=== PATIENT | male | born 1950 | race Caucasian/White ===

== ENCOUNTER 2024-02-07 14:30 | Outpatient (RCR) | payer MEDICARE, SELFPAY | END 2024-04-01 09:41 | disposition home or self-care (01) | LOC: ANHDMC 14:30 | PROVIDERS: Visit Provider Internal Medicine | DX: E11.65 Type 2 diabetes mellitus with hyperglycemia (principal); Z71.89 Other specified counseling | CPT/HCPCS: G0108; G0109 ==

== ENCOUNTER 2024-07-24 14:04 | Outpatient (RCR) | payer MEDICARE, SELFPAY | END 2024-10-07 10:23 | disposition home or self-care (01) | LOC: ANHDMC 14:04 | PROVIDERS: Visit Provider Internal Medicine | DX: E11.65 Type 2 diabetes mellitus with hyperglycemia (principal); Z71.89 Other specified counseling | CPT/HCPCS: G0109 ==

== ENCOUNTER 2024-08-02 06:41 | Inpatient (IN) | payer MEDICARE, SELFPAY ==
[2024-08-02] VITALS (35 sets, daily range): BP systolic 125–164; BP diastolic 62–89; PULSE 103–131; RESP 13–28; TEMP 36.1–36.9; O2SAT 89–100; BMI 38.9
--- NOTE | ~2024-08-02 | XR_ITS ---
EXAMINATION: XR scapula LT DATE: 08/04/2024 12:21 INDICATION: Scapular pain TECHNIQUE: AP and lateral views of the left scapula were obtained. COMPARISON: None. FINDINGS: Alignment is normal. No fracture. Mild left glenohumeral and acromioclavicular osteoarthritis. Severe left lower cervical facet osteoarthritis. Visualized portions of the lungs are clear. IMPRESSION: 1. Osteoarthritis, mild at the left glenohumeral and acromioclavicular joints and severe at the left lower cervical facet joints. Reviewed, dictated and finalized at location A. IMPRESSION: 1. Osteoarthritis, mild at the left glenohumeral and acromioclavicular joints a nd severe at the left lower cervical facet joints.
--- NOTE | ~2024-08-02 | XR_ITS ---
XR abdomen/kub 1V Ordering provider: Azalea Davenport PA-C History: . questionable impaction/vomiting . Comparison: None. FINDINGS: BOWEL: Distended bowel loops with gases. Nonobstructive bowel gas pattern. ORGANOMEGALY: None. SIGNIFICANT PATHOLOGIC CALCIFICATIONS: None. OTHER: No free air is seen under the diaphragm. Degenerative changes of the spine. Bilateral hip oste oarthritic changes. Pubic symphysitis. IMPRESSION: NO ACUTE ABDOMINAL FINDINGS. Reviewed, dictated and finalized at location A.
--- NOTE | ~2024-08-02 | MR_ITS ---
EXAMINATION: MR cervical spine wo con DATE: 08/05/2024 13:20 INDICATION: Severe back pain TECHNIQUE: Magnetic resonance imaging (MRI) of the cervical spine was performed without intravenous c ontrast. Sequences included sagittal T2-weighted FSE, sagittal T2-weighted FS FSE, sagittal T1-weight ed FSE, axial MERGE and axial T2-weighted FSE. COMPARISON: None FINDINGS: Bone alignment is normal. Vertebral body heights are normal. There is severe disc height loss at C2- C3, C5-C6 through T2-T3. Moderate disc height loss at C3-C4 and mild disc height loss at C4-C5. There are degenerative fibrofatty endplate changes at many of these levels. Marrow signal is otherwise unr emarkable. Cord signal intensity is normal. Cervical soft tissues are unremarkable. The following dis c levels are specifically discussed: C2-C3: The disc does not extend beyond the endplate margin. There is severe bilateral uncovertebral j oint osteoarthritis. There is moderate left facet joint osteoarthritis. And there is fusion with prom inent hypertrophic change at the left facet joint. There is moderate bilateral neural foraminal steno sis. There is no central canal stenosis. C3-C4: There is fusion across the bilateral uncovertebral joints as well as the posterior endplate ma rgin with hypertrophic changes narrowing the right lateral recess. There is mild left facet joint ost eoarthritis. There is fusion across the right facet joint with prominent hypertrophic changes. There is mild left and severe right neural foraminal stenosis. There is mild central canal stenosis. C4-C5: Disc is mildly bulging. There is mild left and moderate right uncovertebral joint osteoarthrit is. There is moderate right and mild left facet joint osteoarthritis. There is mild left and mild to moderate right neural foraminal stenosis. There is mild central canal stenosis. C5-C6: There is fusion across the bilateral uncovertebral joints and portions of the posterior endpla te margin with mild hypertrophic changes. There is mild bilateral facet joint osteoarthritis. There i s mild left and mild to moderate right neural foraminal stenosis. There is mild central canal stenosi s. C6-C7: There is fusion across the bilateral uncovertebral joints and portions of the posterior endpla te margin with mild hypertrophic changes. There is mild right and moderate left facet joint osteoarth ritis. There is mild to moderate bilateral neural foraminal stenosis. There is mild central canal catarino nosis. C7-T1: Posterior disc osteophyte complex is present. There is moderate bilateral uncovertebral joint osteoarthritis. There is severe bilateral facet joint osteoarthritis. There is mild bilateral neural foraminal stenosis. There is mild central canal stenosis. IMPRESSION: 1. Severe cervical spondylosis. Reviewed, dictated and finalized at location A.
--- NOTE | ~2024-08-02 | CT_ITS ---
Noncontrast CT scan of the cervical spine Technique: Multiple contiguous axial [address] images of the cervical spine were obtained and rec onstructed in 2D sagittal and coronal planes on the acquisition scanner. Dose reduction technique was used on this scan by utilizing automated exposure control, adjustment of the mA and/or kV according to patient size. The dose-length product (DLP) was 696.11 mGy-cm. Clinical History: Pain Findings: No fractures or dislocations. There is minimal reversal of the normal cervical lordosis. T here are extensive bridging anterior osteophytes, compatible with extensive DISH. There is advanced d egenerative disc 9 throughout the cervical spine, worst at C5-C6 and C6-C7. There is extensive facet arthropathy, with fusion of the left C2-C3 facet joint. There is severe right neural foraminal narrow ing at C3-C4. There is mild right neural foraminal narrowing at C4-C5. There is moderate to advanced bilateral neural foraminal narrowing at C5-C6, right worse than left. There is severe bilateral neura l foraminal narrowing at C6-C7 with mild canal stenosis. No prevertebral soft tissue swelling. Impression: No fracture or subluxation of the cervical spine. Extensive degenerative spondylosis, as above. Reviewed, dictated and finalized at location . Impression: No fracture or subluxation of the cervical spine. Extensive degenerative spondylosis, as above.
--- NOTE | ~2024-08-02 | MR_ITS ---
EXAMINATION: MR thoracic spine wo con DATE: 08/05/2024 13:20 INDICATION: Severe back pain TECHNIQUE: Magnetic resonance imaging (MRI) of the thoracic spine was performed without intravenous c ontrast. Sagittal localizer T1-weighted FSE of the cervicothoracic spine was obtained. Thoracic spine sequences included sagittal T2-weighted FSE, sagittal T1-weighted SE, Sagittal T2-weighted FS FSE, a nd axial T2-weighted FSE. COMPARISON: None FINDINGS: Sagittal alignment is normal. Mild levocurvature in the upper thoracic spine centered atT4 where ther e is mild right-sided vertebral body height loss. Similarly there is a mild dextrocurvature in the mi dthoracic spine centered atT6 where there is mild left-sided vertebral body height loss. Finally ther e is mild likely physiologic anterior wedging at T11, T12 and L1. There are fibrovascular degenerativ e endplate changes at multiple levels most prominent at T3-T4,T7-T8 and T8-T9.Otherwise normal marrow signal. There is severe disc height loss at C5-C6 through T2-T3. Right subarticular zone disc osteop hyte complex at T2-T3 continued mild central canal stenosis at this level. Diffuse disc bulge also co ntributing to mild central canal stenosis at T8-T9 and T10-T11. Moderate disc height loss at T3-T4, T 4-T5, T6-T7, T8-T9 and T9-T10 and mild disc height loss at remaining thoracic levels. There is normal spinal cord signal. There is severe facet osteoarthritis on the right at T3-T4 and T4-T5 and on the left at T2-T3 and T3-T4. Mild to moderate facet osteoarthritis throughout the remainder of the cervic al spine. There is moderate neural from stenosis on the left at T1-T2, bilaterally at T2-T3, on the r ight at T3-T4 and on the left at T9-10. Mild neural foraminal stenosis at many additional levels on t he left and right. There is increased fluid signal in the posterior paraspinal musculature at the low er cervical spine was performed at the level of the interspinous space at C6-C7 which in the history of trauma suggests possible muscle strain and interspinous ligament sprain. IMPRESSION: 1. Moderate to severe thoracic spondylosis with no acute osseous abnormality. 2. Increased signal in the cervical and upper thoracic paraspinal musculature and in the C6-C7 inters pinous space suggesting possible muscle strain and ligament sprain respectively. Reviewed, dictated and finalized at location A. IMPRESSION: 1. Moderate to severe thoracic spondylosis with no acute osseous abnormality. 2. Increased signal in the cervical and upper thoracic paraspinal musculature a nd in the C6-C7 interspinous space suggesting possible muscle strain and ligame nt sprain respectively.
--- NOTE | ~2024-08-02 | CT_ITS ---
CLINICAL INDICATION: Fall with left-sided chest pain COMPARISON: None. TECHNIQUE: Multiple contiguous axial images of the chest was performed following the administration o f intravenous contrast. This CT examination was performed utilizing dose reduction techniques. DLP: 817 mGy-cm FINDINGS/OBSERVATIONS: LUNG: Punctate calcification within the right posterior pleura with adjacent pleural thickening, possibly r elated to asbestos exposure. Nodular scarring is identified adjacent to this calcification with additional calcifications in the p arenchyma of the superior segment of the right lower lobe. This measures 9.6 x 8.6 mm (axial series, image 74). Trace pleural thickening of the right lung base, for which attention on follow-up is recommended. The remainder of the lungs are otherwise clear. HEART: The heart is borderline enlarged, without pericardial effusion. MEDIASTINUM: Limited evaluation without intravenous contrast. SOFT TISSUES OF THE CHEST: Unremarkable. BONES OF THE CHEST: No acute displaced fracture identified within the left ribs or scapula. Oblique lucency within the right posterior fifth rib, which may represent a nondisplaced incomplete f racture, for which clinical correlation is needed (for the presence or absence of point tenderness). The remainder of the visualized osseous structures are intact. No lytic or blastic lesions are identified. IMPRESSION: No acute left-sided rib or scapular fracture. Findings within the right posterior fifth rib which may represent a nondisplaced fracture, for which clinical correlation is needed (for the presence or absence of point tenderness). Nodular (likely) scarring is also noted within the superior segment of the right lower lobe for which follow-up as per Fleischner guidelines is recommended (CT in 3 months, PET CT or tissue sampling). Reviewed, dictated and finalized at location A. IMPRESSION: No acute left-sided rib or scapular fracture. Findings within the right posterior fifth rib which may represent a nondisplace d fracture, for which clinical correlation is needed (for the presence or absen ce of point tenderness). Nodular (likely) scarring is also noted within the superior segment of the righ t lower lobe for which follow-up as per Fleischner guidelines is recommended (C T in 3 months, PET CT or tissue sampling).
--- NOTE | ~2024-08-02 | CT_ITS ---
CT head without contrast Indication: Status post fall Technique: Serial scans were obtained through the brain without the administration of contrast. Dose reduction technique was used on this scan by utilizing automated exposure control and iterative recon struction technique. The dose-length product (DLP) was 605.33 mGy-cm. Findings: There is no evidence of intracranial hemorrhage, mass lesion, or acute infarct. The ventri cles and subarachnoid spaces are unremarkable. Low attenuation regions are seen within the periventr icular white matter bilaterally, likely representing changes from chronic microvascular ischemic dise ase. There is no evidence of edema, mass effect or midline shift. The visualized paranasal sinuses and mastoid air cells are clear. Impression: No intracranial hemorrhage, mass, or acute infarct. Chronic white matter changes, as above. Reviewed, dictated and finalized at location M. Impression: No intracranial hemorrhage, mass, or acute infarct. Chronic white matter changes, as above.
--- NOTE | ~2024-08-02 | XR_ITS ---
Portable chest x-ray Comparison: None Clinical History: Status post fall Findings: Lungs are clear, without focal consolidation or pleural effusion. Cardiomediastinal silho uette is mildly prominent, possibly due to AP technique. Bones and soft tissues are unremarkable. Impression: Clear lungs. Reviewed, dictated and finalized at location . Impression: Clear lungs.
--- NOTE | ~2024-08-02 | CT_ITS ---
Noncontrast CT scan of the thoracic spine CLINICAL HISTORY: Status post fall TECHNIQUE: Axial noncontrast imaging of the thoracic spine was performed. Sagittal and coronal reform atted images were constructed. Dose reduction technique was used on this scan by utilizing automated exposure control and iterative reconstruction technique. The dose-length product (DLP) was 1458.07 mG y-cm. FINDINGS: No acute fracture or sublocation seen. There are extensive flowing anterior marginal osteop hyte throughout the thoracic spine, compatible with extensive DISH. There is multilevel mild degenera tive disc narrowing, especially the upper thoracic spine. No definite disc bulge or herniation seen. No spinal canal stenosis or cord compression evident. Neural foramina are relatively well preserved t hroughout the thoracic spine. Paravertebral soft tissues are unremarkable. Impression: Extensive DISH. No acute abnormality seen. Reviewed, dictated and finalized at [facility]. Impression: Extensive DISH. No acute abnormality seen.
--- OUTSIDE RECORDS SUMMARY | 2024-08-02 07:36 | XMS_ITS | Clinical Summary ---
Author Organization [employer] Address [address] [place] [address] Care Team Providers Care Carpet Winder Name Role Phone Unavailable Primary Care Provider Unavailabl e Source Comments [facility],non-owned Affiliates and Associated Physician Practices is amultiple site organization consisting of ambulatory clinics and hospital sitesin [place], [place], [place] and [place]. This disclosure is being madepursuant to the Care Everywhere program and may not contain all information available regarding this patient. Last updated 17.[facility] Medications * Be aware that medications may not be up to date on this document. Alwaysverify current medications with the patient. aspirin 325 MG tablet Take 325 mg by mouth daily. Active IRON CR PO Take by mouth. Acti ve glucose blood (FREESTYLE TEST STRIP) strip Use 1 Strip. 100 Strip 11 10/14/19 10 Active exenatide (BYETTA) 250 MCG/ML injectionIndicat ions:DM (diabetes mellitus) (HCC) Inject 5 mcg subcutaneously 2 times daily before meals. Inject within one hour of meals twice a day, at least six hours apart. 2.4 mL 5 12/12/19 10 Active simvastatin (ZOCOR) 40 MG tablet Take 1 Tab by mouth at bedtime. 90 Tab 3 02/26/20 10 Active amlodipine-benaz epril (LOTREL) 5-10 MG capsule Take 1 Cap by mouth 2 times daily. 180 Cap 3 02/26/20 10 Active paroxetine (PAXIL) 20 MG tablet Take 1 Tab by mouth daily. 90 Tab 3 03/01/20 10 Active vitamin D, ergocalciferol, (DRISDOL) 88591 UNIT capsuleIndicatio ns:Vitamin d deficiency Take 1 Cap by mouth every 7 days. 12 Cap 0 03/22/19 11 Active fenofibrate (TRICOR) 48 MG tablet Take 1 Tab by mouth daily. 90 Tab 3 03/23/19 11 Active metFORMIN (GLUCOPHAGE) 500 MG tabletIndication s:Type II or unspecified type diabetes mellitus without mention of complication, uncontrolled Take 1 Tab by mouth. Take one in the morning and two in the evening 180 Tab 3 06/24/19 11 Active Active Problems Problem Noted Date Diagnosed Date Morbid obesity 11/16/2009 HTN (hypertension) 08/27/2009 HLD (hyperlipidemia) 08/27/2009 DM (diabetes mellitus) 08/27/2009 ESTRELLA (obstructive sleep apnea) 08/27/2009 DJD (degenerative joint disease) 08/27/2009 Immunizations Immunization Administration Dates Next Due INFLUENZA A [id number] VACCINE 01/26/2009 Social History Tobacco Use Types Packs/Day Years Used Date Smoking Tobacco: Never Alcohol Use Standard Drinks/Week Comments Yes 0 (1 standard drink = 0.6 oz pur e alcohol) Sex and Gender Information Value Date Recorded Sex Assigned at Not on file Legal Sex Male 6:40 AM [employer] Gender Identity Not on file Sexual Orientation Not on file Last Filed Vital Signs Vital Sign Reading Time Taken Comments Blood Pressure 130/70 06/23/2010 9:01 AM CDT Pulse 64 06/23/2010 9:01 AM CDT Temperature - - Respiratory Rate 12 06/23/2010 9:01 AM CDT Oxygen Saturation - - Inhaled Oxygen Concentration - - Weight 128 kg (282 lb 1.6 oz) 06/23/2010 9:01 AM CDT Height 177.8 cm (5' 10) 06/23/2010 9:01 AM CDT Body Mass Index 40.48 06/23/2010 9:01 AM CDT Plan of Treatment Health Maintenance Due Date Last Done Comments COLOGUARD (AGES 45-75) - COL ON CA SCREENING 1949 COLON MONITORING 1949 COLONOSCOPY - COLON CA SCREENING 1949 CT COLONOGRAPHY - COLON CA SCREENING 1949 Colorectal Cancer Screening 1949 FIT - COLON CA SCREENING 1949 FLEX SIG - COLON CA SCREENING 1949 DTAP/TDAP/TD VACCINES (1 - Tdap) 1968 PNEUMOCOCCAL VACCINE 50+ (1 of 1 - PCV) 1999 ZOSTER VACCINE (1 of 2) 1999 COVID-19 VACCINE (1 - 2023-2 5 season) 2023 DEPRESSION SCREENING 03/06/2024 Respiratory Syncytial Virus (RSV) Vaccine Pt: or over 60 yrs (1 - 1-dose 75+ series) 2024 INFLUENZA VACCINE (Season Ended) 2024 01/27/20 09 HEPATITIS C SCREENING Completed 09/30/2008 HEPATITIS B VACCINE Aged Out No longe r eligible based on patient's age to complete this topic HIB VACCINE Aged Out No longer eligi ble based on patient's age to complete this topic HPV VACCINE Aged Out No longer eligi ble based on patient's age to complete this topic MENINGOCOCCAL (Group B) VACC INE SHARED DECISION-MAKING Aged Out No longer eligibl e based on patient's age to complete this topic MENINGOCOCCAL GROUPS A/C/Y/W VACCINE Aged Out No longer eligible b ased on patient's age to complete this topic Procedures Procedure Name Priority Date/Time Associated Diagnosis Comments HEPATITIS SCREEN ACUTE 09/30/2008 8:16 AM CDT from Last 3 Months or Most Recently Relevant to Health Maintenance Results * HEPATITIS SCREEN ACUTE (09/30/2008 8:16 AM CDT) Hepatitis A Virus Antibody IgM Negative Negative [facility] ACCOUNT BILL Hepatitis B Virus Surface Antigen Negative Negative [facility] ACCOUNT BILL Hepatitis B Core Virus Antibody IgM Negative Negative [facility] ACCOUNT BILL Hepatitis C Virus Antibody <0.1 0.0 - 0.9 s/co ratio [facility] ACCOUNT BILL Comment: Negative: < 0.8 Indeterminate 0.8 - 0.9 Positive: > 0.9 . In order to reduce the incidence of a false positive result, the CDC recommends that all s/co ratios between 1.0 and 10.9 be confirmed with additional RIBA or PCR testing. 09/30/2008 8:16 AM CDT 09/30/2008 5:46 PM CDT Narrative Resulting Agency Comment [facility] [address] [id number] [place] Mac Butler MD LAB - CHEMISTRY ORDERABLES F inal Result [facility] ACCOUNT BILL [id number] [place] [address] from Last 3 Months or Most Recently Relevant to Health Maintenance
[2024-08-02] MEDS: HYDROmorphone HCL INJ (*CRX) 2 MG/ML VIAL 0.5 MG IV PUSH (07:48)
[2024-08-02] MEDS: SODIUM CHLORIDE 0.9% IV 1,000 ML 999 ML IV CONT (07:51)
[2024-08-02 08:06] LABS: Basophils Percent Auto 0.2 % (0.2-1.2); Eosinophils Percent Auto 0.2 % (0-4.4); Hematocrit 44.1 % (42.0-52.0); Hemoglobin 14.6 g/dL (14.0-18.0); Immature Granulocyte Absolute 0.04 K/mm3 (0.00-0.031); Immature Granulocyte Percent A 0.4 % (0-0.5); Lymphocytes Absolute Auto 1.26 K/mm3 (0.9-3.2); Lymphocytes Percent Auto 13.2 % (18.3-44.2); Mean Corpuscular HGB Conc 33.1 g/dl (32-36); Mean Corpuscular Hemoglobin 30.6 pg (26-34); Mean Corpuscular Volume 92.5 fl (80-100); Mean Platelet Volume 10.9 fl (7.4-10.4); Monocytes Absolute Auto 0.7 K/mm3 (0.1-0.6); Monocytes Percent Auto 7.2 % (2.6-8.5); Neutrophils Absolute Auto 7.5 K/mm3 (1.3-6.7); Neutrophils Percent Auto 78.8 % (45.5-73.1); Platelet Count Result 204 k/mm3 (150-375); Red Blood Count 4.77 M/mm3 (4.6-6.20); Red Cell Distribution Width 13.1 % (11.5-14.5); White Blood Count 9.6 K/mm3 (4.5-10.0)
[2024-08-02 08:20] LABS: Alanine Aminotransferase 32 U/L (6-50); Albumin Level 4.6 g/dL (3.5-5.1); Alkaline Phosphatase 97 U/L (38-126); Anion Gap 16 mmol/L (4-12); Aspartate Amino Transferase 47 U/L (17-59); Bilirubin,Total 0.8 mg/dL (0.2-1.3); Blood Urea Nitrogen 24 mg/dL (9-20); Carbon Dioxide 20 mmol/L (22-30); Chloride 101 mmol/L (98-107); Creatine Kinase 970 U/L (55-170); Estimated CRCL calculation 73 ml/min; Estimated Glomerular Filt Rate > 60; Glucose 192 mg/dL (65-110); Potassium 4.1 mmol/L (3.4-5.0); Sodium 137 mmol/L (137-145)
[2024-08-02 08:26] LABS: Partial Thromboplastin Time 25.9 Seconds (22.3-36.8)
--- NOTE | 2024-08-02 08:53 | ED_ITS ---
HPI - Fall General Chief Complaint: Fall Stated Complaint: fall Time Seen by Provider: 08/02/24 07:04 History of Present Illness HPI Narrative: Patient is a 74-year-old male who presents ER with back pain. Patient was at a bur been tasting when he suffered a fall landing on his left side near shoulder. Sudden onset pain in his back. His friends were able to get him back up and then he got a ride home. Pain continued to cause him discomfort at home and he laid on the floor all night and then came to the ER this morning as he is still having significant discomfort and could not get up and move around. No numbness or tingling to the arms or legs. No difficulty with urination/defecation. He is not on blood thinning medication. He does not think he struck his head and he did not lose consciousness. No alleviating factors for his discomfort. EMS gave him 4 mg of morphine without improvement. Patient reports pain is more midthoracic region. Related Data Home Medications ?Medication ?Instructions ?Recorded ?Confirmed ?Last Taken ?Type amlodipine 5 mg-benazepril 20 mg 1 cap PO DAILY 08/02/24 08/02/24 08/01/24 History capsule empagliflozin 25 mg tablet 25 mg PO DAILY 08/02/24 08/02/24 08/01/24 History (Jardiance) insulin glargine U-300 conc 300 See Rx Instructions subcut .COMPLEX 08/02/24 08/02/24 08/01/24 History unit/mL (1.5 mL) subcutaneous pen (Toujeo SoloStar U-300 Insulin) metformin 500 mg tablet,extended 500 mg PO DAILY 08/02/24 08/02/24 08/01/24 History release 24 hr paroxetine HCl 30 mg tablet 30 mg PO QAM 08/02/24 08/02/24 08/01/24 History semaglutide 2 mg/dose (8 mg/3 mL) 2 mg subcut WEEKLY 08/02/24 08/02/24 Unknown History subcutaneous pen injector (Ozempic) simvastatin 40 mg tablet 40 mg PO QPM 08/02/24 08/02/24 08/01/24 History vibegron 75 mg tablet (Gemtesa) 75 mg PO DAILY 08/02/24 08/02/24 08/01/24 History Allergies Allergy/AdvReac Type Severity Reaction Status Date / Time No Known Allergies Allergy Verified 08/02/24 08:01 Review of Systems 2 Review of Systems: All systems reviewed & are unremarkable except as noted in HPI and below Constitutional: Constitutional: Reports no additional constitutional complaints Cardiovascular: Cardiovascular: Reports no additional cardiovascular complaints Respiratory: Respiratory: Reports no additional respiratory complaints Gastrointestinal: Gastrointestinal: Reports no additional gastrointestinal complaints Musculoskeletal: Musculoskeletal: Reports no additional musculoskeletal complaints PMFSH Past Medical History Medical History (Updated 08/02/24 @ 18:33 by Jose Elias Mcdowell MD) Hyperlipidemia Overactive bladder Depression with anxiety Insulin dependent type 2 diabetes mellitus Hypertension Surgical History Surgical History (Updated 08/02/24 @ 14:00 by Azalea Davenport PA-C) History of arthroscopy of right knee Social History Social History (Updated 08/02/24 @ 14:04 by Azalea Davenport PA-C) Social History: Surrogate medical decision maker: Diamante Viramontes, spouse. Code status: Full code. Smokeless tobacco user: chewing tobacco Alcohol intake: current Substance use: never Do You Feel Safe in your Home?: Yes Lack of Transportation: No Lack of Food: Never True Current Housing: I Have Housing Concerned About Future Housing: No Difficulty Paying Gas/Electric Bills: No Difficulty Paying for Meds: No Currently Unemployed: No Education: Master's Degree or Higher Difficulty w/ Childcare or Family Care: No Spiritual care concerns: No Exam 2 Narrative: GENERAL: Uncomfortable-appearing, well-nourished, and in no acute distress. HEAD: Normocephalic, atraumatic. ENT: Mucous membranes moist. NECK: Supple. No midline tenderness of the cervical spine. CHEST: Clear to auscultation. No respiratory distress. HEART: Regular rate and rhythm. Normal peripheral pulses. ABDOMEN: Soft, nontender, nondistended. Back: Midline tenderness the T spine around T4 through T6 without step-off. No bruising or abrasion to the back. No lumbar spine tenderness. No tenderness over the scapula bilaterally. EXTREMITIES: Normal range of motion. No edema. SKIN: Warm, dry, no rash. NEURO: Alert and oriented x3. PSYCH: Normal mood and affect. Course Course Emergency Course: Patient and informed of imaging and lab results. Patient still with persistent pain has difficulty moving. Possible nondisplaced fracture of the 5th rib. Patient does have mild rhabdomyolysis. Admit to hospitalist service for continued hydration and pain control. Vital Signs Vital signs: Vital Signs Pulse Rate 110 H 08/02/24 06:39 Respiratory Rate 28 H 08/02/24 06:39 Blood Pressure 138/62 08/02/24 06:39 Pulse Oximetry 98 08/02/24 06:39 Oxygen Delivery Room Air 08/02/24 06:39 Temperature 97 F L 08/02/24 13:57 Pulse Rate 103 H 08/02/24 13:57 Respiratory Rate 18 08/02/24 13:57 Blood Pressure 155/89 H 08/02/24 13:57 Pulse Oximetry 97 08/02/24 16:50 Oxygen Delivery Room Air 08/02/24 16:50 MDM - Fall Lab Data 08/02/24 07:54 08/02/24 15:31 Labs: Lab Results 08/02/24 08/02/24 Range/Units 07:53 07:54 WBC 9.6 (4.5-10.0) K/mm3 RBC 4.77 (4.6-6.20) M/mm3 Hgb 14.6 (14.0-18.0) g/dL Hct 44.1 (42.0-52.0) % MCV 92.5 (80-100) fl MCH 30.6 (26-34) pg MCHC 33.1 (32-36) g/dl RDW 13.1 (11.5-14.5) % Plt Count 204 (150-375) k/mm3 MPV 10.9 H (7.4-10.4) fl Immature Gran % (Auto) 0.4 (0-0.5) % Neut % (Auto) 78.8 H (45.5-73.1) % Lymph % (Auto) 13.2 L (18.3-44.2) % [place] % (Auto) 7.2 (2.6-8.5) % Eos % (Auto) 0.2 (0-4.4) % Baso % (Auto) 0.2 (0.2-1.2) % Lymph # (Auto) 1.26 (0.9-3.2) K/mm3 [place] # (Auto) 0.7 H (0.1-0.6) K/mm3 Eos # (Auto) 0.0 (0-0.3) K/mm3 Baso # (Auto) 0.0 (0.0-0.1) K/mm3 Abs Immat Gran (auto) 0.04 H (0.00-0.031) K/mm3 Absolute Neuts (auto) 7.5 H (1.3-6.7) K/mm3 Absolute Nucleated RBC 0.000 (0.0-0.012) K/mm3 Nucleated RBC % 0.0 (0.0-0.2) % PT 13.0 (11.1-14.7) Seconds INR 1.0 APTT 25.9 (22.3-36.8) Seconds Sodium 137 (137-145) mmol/L Potassium 4.1 (3.4-5.0) mmol/L Chloride 101 (98-107) mmol/L Carbon Dioxide 20 L (22-30) mmol/L Anion Gap 16 H (4-12) mmol/L BUN 24 H (9-20) mg/dL Creatinine 1.01 (0.7-1.3) mg/dL Estim Creat Clear Calc 73 ml/min Estimated GFR > 60 (59 - ) Glucose 192 H (65-110) mg/dL Hemoglobin A1c 6.6 H (<5.7) % Calcium 10.0 (8.4-10.2) mg/dL Total Bilirubin 0.8 (0.2-1.3) mg/dL AST 47 (17-59) U/L ALT 32 (6-50) U/L Alkaline Phosphatase 97 (38-126) U/L Total Creatine Kinase 970 H (55-170) U/L Total Protein 7.0 (6.3-8.2) g/dL Albumin 4.6 (3.5-5.1) g/dL Imaging Data Radiologist's impression: ITS Impressions Chest X-Ray 08/02/24 07:46 Impression: Clear lungs. Cervical Spine CT 08/02/24 07:47 Impression: No fracture or subluxation of the cervical spine. Extensive degenerative spondylosis, as above. Head CT 08/02/24 07:47 Impression: No intracranial hemorrhage, mass, or acute infarct. Chronic white matter changes, as above. Thoracic Spine CT 08/02/24 07:50 Impression: Extensive DISH. No acute abnormality seen. Chest CT 08/02/24 10:05 IMPRESSION: No acute left-sided rib or scapular fracture. Findings within the right posterior fifth rib which may represent a nondisplaced fracture, for which clinical correlation is needed (for the presence or absence of point tenderness). Nodular (likely) scarring is also noted within the superior segment of the right lower lobe for which follow-up as per Fleischner guidelines is recommended (CT in 3 months, PET CT or tissue sampling). Discharge Plan Discharge Clinical Impression: Rhabdomyolysis, Closed rib fracture, Intractable back pain Patient Disposition: Still a Patient Condition: Stable
[2024-08-02] MEDS: KETOROLAC 15 MG/ML VIAL (*BKC) IV PUSH (08:55)
[2024-08-02] MEDS: MORPHINE SULFATE (*CRX) 4 MG/ML INJ IV PUSH ×4 (11:23→22:42)
--- NOTE | 2024-08-02 13:08 | ADMGEN ---
This patient, Christopher Viramontes, was admitted to [facility] Surg Room 329-01. Patient/family oriented to hospital policies and general routines including ID bracelet, bed and alarms, visiting hours, pain management, procedures, bathroom and other care routines, personal items, smoking policy, room service/diet, and visiting hours. Information on how to activate the Rapid Response Team has been discussed. Patient/Family are encouraged to report perceived risks to care and to ask questions if they do not understand what they are told or what they should do.
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
[2024-08-02] MEDS: SODIUM CHLORIDE 0.9% IV 1,000 ML 125 ML IV CONT ×2 (13:51→22:26)
--- NOTE | 2024-08-02 14:04 | ECG_ITS ---
Test Date: 2024-08-02 15:07:41 Measurements Intervals [place] Rate: 101 P: 60 FL: 252 QRS: -18 QRSD: 98 T: 21 QT: 340 QTc: 443 Interpretive Statements SINUS TACHYCARDIA WITH FIRST DEGREE AV BLOCK POSSIBLE OLD INFERIOR INFARCT No previous ECG available for comparison Electronically Signed On 08-02-2024 15:11:53 CDT by Abran Low M.D.
[2024-08-02 15:45] LABS: Hemoglobin A1C 6.6 % (<5.7)
[2024-08-02 15:51] LABS: Anion Gap 7 mmol/L (4-12); Blood Urea Nitrogen 26 mg/dL (9-20); Calcium 9.4 mg/dL (8.4-10.2); Carbon Dioxide 27 mmol/L (22-30); Chloride 104 mmol/L (98-107); Creatine Kinase 899 U/L (55-170); Estimated CRCL calculation 77 ml/min; Estimated Glomerular Filt Rate > 60; Glucose 133 mg/dL (65-110); Magnesium 2.1 mg/dL (1.6-2.3); Potassium 4.2 mmol/L (3.4-5.0); Sodium 138 mmol/L (137-145)
[2024-08-02 16:40] LABS: Glucose Point of Care 180 mg/dl (65-105)
[2024-08-02] MEDS: SIMVASTATIN 20 MG TABLET 40 MG PO (17:34)
[2024-08-02] MEDS: HYDROcodone/acetaminophen (*CRX) 5-325 MG TABLET 1 TAB PO ×2 (17:34→21:30)
[2024-08-02 20:27] LABS: Glucose Point of Care 123 mg/dl (65-105)
[2024-08-02] MEDS: LIDOCAINE 5% PATCH 1 PATCH TRANSDERM (21:13)
[2024-08-02] MEDS: CYCLOBENZAPRINE HCL 10 MG TABLET PO (21:13)
[2024-08-03] MEDS: oxyCODONE/ACETAMINOPHEN (*CRX) 10-325 MG TABLET 1 TAB PO ×5 (02:14→21:05)
[2024-08-03] MEDS: HYDROmorphone HCL INJ (*CRX) 2 MG/ML VIAL 0.5 MG IV PUSH ×2 (05:03→08:32)
[2024-08-03 06:00] VITALS: BP 125/71; PULSE 86; RESP 20; TEMP 36.7; O2SAT 95
[2024-08-03] MEDS: SODIUM CHLORIDE 0.9% IV 1,000 ML 125 ML IV CONT (06:12)
[2024-08-03 06:51] LABS: Anion Gap 7 mmol/L (4-12); Blood Urea Nitrogen 18 mg/dL (9-20); Calcium 8.7 mg/dL (8.4-10.2); Carbon Dioxide 26 mmol/L (22-30); Chloride 103 mmol/L (98-107); Estimated CRCL calculation 86 ml/min; Estimated Glomerular Filt Rate > 60; Glucose 127 mg/dL (65-110); Potassium 3.8 mmol/L (3.4-5.0); Sodium 136 mmol/L (137-145)
[2024-08-03 06:54] LABS: Creatine Kinase 646 U/L (55-170)
[2024-08-03] MEDS: LIDOCAINE 5% PATCH 1 PATCH TRANSDERM (07:44)
[2024-08-03] MEDS: amLODIPine BESYLATE 5 MG TABLET BY MOUTH (07:45)
[2024-08-03] MEDS: PARoxetine 10 MG TABLET 30 MG PO (07:45)
[2024-08-03] MEDS: lisinopriL 20 MG TABLET PO (07:45)
[2024-08-03] MEDS: EMPAGLIFLOZIN 25 MG TABLET PO (07:46)
[2024-08-03 08:02] LABS: Glucose Point of Care 114 mg/dl (65-105)
[2024-08-03 09:01] LABS: Glucose Point of Care 130 mg/dl (65-105)
[2024-08-03 11:06] LABS: Glucose Point of Care 142 mg/dl (65-105)
[2024-08-03] MEDS: INSULIN GLARGINE (*BKC) 100 UNITS/ML 12 UNITS SUB-Q (12:13)
[2024-08-03] MEDS: SODIUM CHLORIDE 0.9% IV 1,000 ML 150 ML IV CONT (12:17)
[2024-08-03] MEDS: HYDROmorphone HCL INJ (*CRX) 2 MG/ML VIAL 1 MG IV PUSH ×4 (12:17→23:06)
[2024-08-03 14:00] VITALS: BP 128/66; PULSE 92; RESP 16; TEMP 35.9; O2SAT 95
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
[2024-08-03 16:28] LABS: Glucose Point of Care 116 mg/dl (65-105)
[2024-08-03] MEDS: methylPREDNISolone SOD SUCC 40 MG VIAL IV PUSH (17:18)
[2024-08-03] MEDS: SIMVASTATIN 20 MG TABLET 40 MG PO (17:18)
[2024-08-03] MEDS: CYCLOBENZAPRINE HCL 10 MG TABLET PO (20:31)
[2024-08-03 21:15] LABS: Glucose Point of Care 164 mg/dl (65-105)
[2024-08-03 21:32] VITALS: BP 134/70; PULSE 95; RESP 20; TEMP 36.9; O2SAT 93
[2024-08-03] MEDS: SODIUM CHLORIDE 0.9% IV 1,000 ML 75 ML IV CONT (23:06)
[2024-08-04] MEDS: oxyCODONE/ACETAMINOPHEN (*CRX) 10-325 MG TABLET 1 TAB PO ×5 (01:55→21:39)
[2024-08-04] MEDS: HYDROmorphone HCL INJ (*CRX) 2 MG/ML VIAL 1 MG IV PUSH ×2 (04:55→08:02)
[2024-08-04 05:29] VITALS: BP 145/76; PULSE 92; RESP 20; TEMP 36.5; O2SAT 96
[2024-08-04 06:13] LABS: Anion Gap 8 mmol/L (4-12); Blood Urea Nitrogen 20 mg/dL (9-20); Calcium 9.2 mg/dL (8.4-10.2); Carbon Dioxide 25 mmol/L (22-30); Chloride 102 mmol/L (98-107); Creatine Kinase 479 U/L (55-170); Estimated CRCL calculation 82 ml/min; Estimated Glomerular Filt Rate > 60; Glucose 144 mg/dL (65-110); Potassium 4.2 mmol/L (3.4-5.0); Sodium 135 mmol/L (137-145)
[2024-08-04] MEDS: CYCLOBENZAPRINE HCL 10 MG TABLET PO (06:54)
[2024-08-04] MEDS: PARoxetine 10 MG TABLET 30 MG PO (08:03)
[2024-08-04] MEDS: INSULIN GLARGINE (*BKC) 100 UNITS/ML 12 UNITS SUB-Q (08:03)
[2024-08-04] MEDS: methylPREDNISolone SOD SUCC 40 MG VIAL IV PUSH ×2 (08:03→16:38)
[2024-08-04] MEDS: lisinopriL 20 MG TABLET PO (08:04)
[2024-08-04] MEDS: EMPAGLIFLOZIN 25 MG TABLET PO (08:04)
[2024-08-04] MEDS: amLODIPine BESYLATE 5 MG TABLET BY MOUTH (08:04)
[2024-08-04 08:08] LABS: Glucose Point of Care 139 mg/dl (65-105)
[2024-08-04 11:43] LABS: Glucose Point of Care 180 mg/dl (65-105)
[2024-08-04] MEDS: SODIUM CHLORIDE 0.9% IV 1,000 ML 70 ML IV CONT (12:58)
[2024-08-04 14:00] VITALS: BP 131/75; PULSE 97; RESP 20; TEMP 36.9; O2SAT 99
[2024-08-04] MEDS: SIMVASTATIN 20 MG TABLET 40 MG PO (16:38)
[2024-08-04 16:59] LABS: Glucose Point of Care 195 mg/dl (65-105)
[2024-08-04 20:49] VITALS: BP 136/78; PULSE 101; RESP 16; TEMP 36.4; O2SAT 93
[2024-08-04 20:59] VITALS: O2SAT 99
[2024-08-04 21:05] LABS: Glucose Point of Care 219 mg/dl (65-105)
[2024-08-04] MEDS: INSULIN ASPART (*BKC) 100 UNITS/ML SUB-Q (21:32)
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
[2024-08-05] MEDS: guaiFENesin 12 HR 600 MG TABCR 1200 MG PO ×3 (01:00→20:55)
[2024-08-05] MEDS: HYDROmorphone HCL INJ (*CRX) 2 MG/ML VIAL 1 MG IV PUSH ×6 (01:33→20:55)
[2024-08-05 06:00] VITALS: BP 143/71; PULSE 91; RESP 16; TEMP 36.7; O2SAT 98
[2024-08-05 07:44] LABS: Glucose Point of Care 184 mg/dl (65-105)
[2024-08-05 08:00] VITALS: O2SAT 98
[2024-08-05] MEDS: methylPREDNISolone SOD SUCC 40 MG VIAL IV PUSH ×2 (08:09→17:12)
[2024-08-05] MEDS: lisinopriL 20 MG TABLET PO (08:09)
[2024-08-05] MEDS: EMPAGLIFLOZIN 25 MG TABLET PO (08:09)
[2024-08-05] MEDS: amLODIPine BESYLATE 5 MG TABLET BY MOUTH (08:09)
[2024-08-05] MEDS: PARoxetine 10 MG TABLET 30 MG PO (08:10)
[2024-08-05] MEDS: INSULIN GLARGINE (*BKC) 100 UNITS/ML 12 UNITS SUB-Q (08:14)
[2024-08-05] MEDS: diazePAM (*CRX) 5 MG TABLET PO (12:00)
[2024-08-05 12:07] LABS: Glucose Point of Care 224 mg/dl (65-105)
[2024-08-05] MEDS: INSULIN ASPART (*BKC) 100 UNITS/ML SUB-Q ×2 (12:16→20:56)
--- NOTE | 2024-08-05 13:56 | WPDCDIQUERY2 ---
CDI Query Clarification Request Please clarify type of rhabdomyolysis if known: ? Traumatic or muscle compression (e.g., crush syndrome or prolonged immobilization) ? Non-traumatic exertional (e.g., marked exertion in untrained individuals, hyperthermia, or metabolic myopathies) ? Non-traumatic no exertional (e.g., drugs or toxins, infections, or electrolyte disorders) The medical chart reflects the following: Patient is a 74-year-old male who presents ER with back pain. Patient was at a [employer] been tasting when he suffered a fall landing on his left side near shoulder. Sudden onset pain in his back. His friends were able to get him back up and then he got a ride home. Pain continued to cause him discomfort at home and he laid on the floor all night and then came to the ER this morning as he is still having significant discomfort and could not get up and move around. No numbness or tingling to the arms or legs. No difficulty with urination/defecation. He is not on blood thinning medication. He does not think he struck his head and he did not lose consciousness. No alleviating factors for his discomfort. EMS gave him 4 mg of morphine without improvement. Patient reports pain is more midthoracic region. Assessment and Plan (1) Fall: Code(s): W19.XXXA - Unspecified fall, initial encounter Status: Acute (2) Rhabdomyolysis: Code(s): M62.82 - Rhabdomyolysis Status: Acute Assessment and Plan: continue IV fluids watch CK <Kenya Park RN - Last Filed: 08/05/24 13:57> Clarified Diagnosis Clarified Diagnosis: traumatic or muscle compression <Renetta Davis MD - Last Filed: 08/21/24 20:30>
[2024-08-05] MEDS: CYCLOBENZAPRINE HCL 10 MG TABLET PO (14:09)
[2024-08-05 14:20] VITALS: BP 124/74; PULSE 99; RESP 18; TEMP 36.9; O2SAT 98
[2024-08-05] MEDS: HYDROcodone/acetaminophen (*CRX) 5-325 MG TABLET 1 TAB PO (15:04)
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
[2024-08-05] MEDS: ACETAMINOPHEN 325 MG TABLET 650 MG PO (15:47)
[2024-08-05 17:10] LABS: Glucose Point of Care 178 mg/dl (65-105)
[2024-08-05] MEDS: GABAPENTIN 100 MG CAPSULE PO (17:11)
[2024-08-05] MEDS: SIMVASTATIN 20 MG TABLET 40 MG PO (17:11)
[2024-08-05 17:27] LABS: Anion Gap 8 mmol/L (4-12); Blood Urea Nitrogen 22 mg/dL (9-20); Calcium 9.9 mg/dL (8.4-10.2); Carbon Dioxide 28 mmol/L (22-30); Chloride 101 mmol/L (98-107); Creatine Kinase 262 U/L (55-170); Estimated CRCL calculation 79 ml/min; Estimated Glomerular Filt Rate > 60; Glucose 206 mg/dL (65-110); Sodium 137 mmol/L (137-145)
[2024-08-05 22:00] VITALS: BP 131/79; PULSE 91; RESP 20; TEMP 36.5; O2SAT 93
[2024-08-05 22:07] LABS: Glucose Point of Care 208 mg/dl (65-105)
[2024-08-05 23:43] VITALS: PULSE 90; RESP 20; O2SAT 94
[2024-08-06 06:00] VITALS: BP 139/65; PULSE 96; RESP 20; TEMP 36.3; O2SAT 100
[2024-08-06] MEDS: HYDROmorphone HCL INJ (*CRX) 2 MG/ML VIAL 1 MG IV PUSH (06:15)
[2024-08-06 07:43] LABS: Glucose Point of Care 137 mg/dl (65-105)
[2024-08-06 08:00] VITALS: O2SAT 100
[2024-08-06] MEDS: lisinopriL 20 MG TABLET PO (08:26)
[2024-08-06] MEDS: methylPREDNISolone SOD SUCC 40 MG VIAL IV PUSH ×2 (08:26→16:51)
[2024-08-06] MEDS: PARoxetine 10 MG TABLET 30 MG PO (08:26)
[2024-08-06] MEDS: GABAPENTIN 100 MG CAPSULE PO ×3 (08:27→16:51)
[2024-08-06] MEDS: amLODIPine BESYLATE 5 MG TABLET BY MOUTH (08:27)
[2024-08-06] MEDS: guaiFENesin 12 HR 600 MG TABCR 1200 MG PO ×2 (08:27→20:20)
[2024-08-06] MEDS: EMPAGLIFLOZIN 25 MG TABLET PO (08:27)
[2024-08-06] MEDS: HYDROcodone/acetaminophen (*CRX) 5-325 MG TABLET 1 TAB PO ×3 (08:31→21:59)
[2024-08-06] MEDS: INSULIN GLARGINE (*BKC) 100 UNITS/ML 12 UNITS SUB-Q (08:31)
[2024-08-06] MEDS: CYCLOBENZAPRINE HCL 10 MG TABLET PO ×2 (10:39→20:23)
[2024-08-06 11:01] LABS: Hematocrit 45.4 % (42.0-52.0); Mean Corpuscular Hemoglobin 30.5 pg (26-34); Mean Corpuscular Volume 92.5 fl (80-100); Mean Platelet Volume 10.2 fl (7.4-10.4); Platelet Count Result 228 k/mm3 (150-375); Red Blood Count 4.91 M/mm3 (4.6-6.20); Red Cell Distribution Width 12.9 % (11.5-14.5); White Blood Count 10.8 K/mm3 (4.5-10.0)
[2024-08-06 11:11] LABS: Alanine Aminotransferase 29 U/L (6-50); Albumin Level 4.3 g/dL (3.5-5.1); Alkaline Phosphatase 63 U/L (38-126); Anion Gap 10 mmol/L (4-12); Aspartate Amino Transferase 26 U/L (17-59); Bilirubin,Total 0.9 mg/dL (0.2-1.3); Blood Urea Nitrogen 26 mg/dL (9-20); Calcium 9.6 mg/dL (8.4-10.2); Carbon Dioxide 27 mmol/L (22-30); Chloride 100 mmol/L (98-107); Estimated CRCL calculation 86 ml/min; Estimated Glomerular Filt Rate > 60; Glucose 222 mg/dL (65-110); Potassium 4.1 mmol/L (3.4-5.0); Sodium 137 mmol/L (137-145); Total Protein 7.3 g/dL (6.3-8.2)
[2024-08-06 11:49] LABS: Glucose Point of Care 196 mg/dl (65-105)
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
--- NOTE | 2024-08-06 12:30 | PCPTNOTE ---
Neurosurgery consult pending. Will wait for consult prior to seeing pt per hospitalist request. Will follow.
[2024-08-06 13:17] LABS: Creatine Kinase 124 U/L (55-170)
[2024-08-06 13:55] VITALS: BP 131/70; PULSE 93; RESP 17; TEMP 36.7; O2SAT 94
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
[2024-08-06 16:49] LABS: Glucose Point of Care 260 mg/dl (65-105)
[2024-08-06] MEDS: SIMVASTATIN 20 MG TABLET 40 MG PO (16:51)
[2024-08-06] MEDS: INSULIN ASPART (*BKC) 100 UNITS/ML SUB-Q ×2 (16:51→20:20)
[2024-08-06] MEDS: ONDANSETRON INJ 4 MG/2 ML VIAL IV PUSH ×2 (17:03→21:58)
[2024-08-06 20:15] VITALS: BP 157/80; PULSE 80; RESP 16; TEMP 36.6; O2SAT 96
[2024-08-06 21:26] LABS: Glucose Point of Care 304 mg/dl (65-105)
[2024-08-06 22:45] VITALS: PULSE 86; PULSE 90; RESP 20; O2SAT 94
[2024-08-07] MEDS: ONDANSETRON INJ 4 MG/2 ML VIAL IV PUSH ×4 (03:58→23:36)
[2024-08-07 04:30] VITALS: BP 142/88; PULSE 65; RESP 20; TEMP 36.4; O2SAT 96
[2024-08-07 06:33] LABS: Hematocrit 50.6 % (42.0-52.0); Hemoglobin 16.8 g/dL (14.0-18.0); Mean Corpuscular HGB Conc 33.2 g/dl (32-36); Mean Corpuscular Hemoglobin 30.2 pg (26-34); Mean Platelet Volume 10.3 fl (7.4-10.4); Platelet Count Result 266 k/mm3 (150-375); Red Blood Count 5.56 M/mm3 (4.6-6.20); Red Cell Distribution Width 12.8 % (11.5-14.5); White Blood Count 13.1 K/mm3 (4.5-10.0)
[2024-08-07 06:47] LABS: Alanine Aminotransferase 48 U/L (6-50); Albumin Level 4.7 g/dL (3.5-5.1); Alkaline Phosphatase 68 U/L (38-126); Anion Gap 11 mmol/L (4-12); Aspartate Amino Transferase 43 U/L (17-59); Bilirubin,Total 1.1 mg/dL (0.2-1.3); Blood Urea Nitrogen 29 mg/dL (9-20); Carbon Dioxide 31 mmol/L (22-30); Chloride 98 mmol/L (98-107); Estimated CRCL calculation 75 ml/min; Estimated Glomerular Filt Rate > 60; Glucose 141 mg/dL (65-110); Potassium 4.3 mmol/L (3.4-5.0); Sodium 140 mmol/L (137-145)
[2024-08-07] MEDS: HYDROcodone/acetaminophen (*CRX) 5-325 MG TABLET 1 TAB PO ×4 (06:59→23:35)
[2024-08-07 07:49] LABS: Glucose Point of Care 123 mg/dl (65-105)
[2024-08-07 08:00] VITALS: O2SAT 96
[2024-08-07] MEDS: GABAPENTIN 100 MG CAPSULE PO ×3 (08:39→17:34)
[2024-08-07] MEDS: PARoxetine 10 MG TABLET 30 MG PO (08:39)
[2024-08-07] MEDS: methylPREDNISolone SOD SUCC 40 MG VIAL IV PUSH (08:39)
[2024-08-07] MEDS: guaiFENesin 12 HR 600 MG TABCR 1200 MG PO ×2 (08:39→20:12)
[2024-08-07] MEDS: amLODIPine BESYLATE 5 MG TABLET BY MOUTH (08:40)
[2024-08-07] MEDS: EMPAGLIFLOZIN 25 MG TABLET PO (08:40)
[2024-08-07] MEDS: INSULIN GLARGINE (*BKC) 100 UNITS/ML 12 UNITS SUB-Q (08:40)
[2024-08-07] MEDS: lisinopriL 20 MG TABLET PO (08:40)
[2024-08-07] MEDS: LIDOCAINE 5% PATCH 1 PATCH TRANSDERM (08:51)
[2024-08-07] MEDS: CYCLOBENZAPRINE HCL 10 MG TABLET PO ×2 (10:41→20:12)
[2024-08-07 11:23] LABS: Glucose Point of Care 178 mg/dl (65-105)
--- NOTE | 2024-08-07 11:36 | PHAR ---
HOME MED GEMTESSA 75 MG TABLETS; CAME DOWN IN ORIGINAL BOTTLE. OZEMPIC PEN 8 MG/3 ML PREFILLED PEN VERIFIED BY PHARMACY.
[2024-08-07] MEDS: dexAMETHasone SOD PHOS INJ 4 MG/ML VIAL IV PUSH ×3 (12:53→23:36)
[2024-08-07 14:00] VITALS: BP 126/73; PULSE 98; RESP 18; TEMP 36.6; O2SAT 93
[2024-08-07] MEDS: polyethylene glycoL 3350 17 GM POWD.PACK PO (14:30)
[2024-08-07] MEDS: SEMAGLUTIDE 2 MG 2 EACH SUB-Q (14:45)
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
[2024-08-07 16:52] LABS: Glucose Point of Care 234 mg/dl (65-105)
[2024-08-07] MEDS: INSULIN ASPART (*BKC) 100 UNITS/ML SUB-Q (17:33)
[2024-08-07] MEDS: SIMVASTATIN 20 MG TABLET 40 MG PO (17:34)
[2024-08-07 20:12] LABS: Glucose Point of Care 193 mg/dl (65-105)
[2024-08-07 20:47] VITALS: BP 139/85; PULSE 78; RESP 14; TEMP 36.3; O2SAT 96
[2024-08-08 05:08] VITALS: BP 110/75; PULSE 85; RESP 16; TEMP 36.6; O2SAT 96
[2024-08-08] MEDS: HYDROcodone/acetaminophen (*CRX) 5-325 MG TABLET 1 TAB PO ×3 (05:15→20:16)
[2024-08-08] MEDS: CYCLOBENZAPRINE HCL 10 MG TABLET PO ×2 (05:16→17:30)
[2024-08-08] MEDS: dexAMETHasone SOD PHOS INJ 4 MG/ML VIAL IV PUSH ×4 (05:16→23:55)
[2024-08-08] MEDS: ONDANSETRON INJ 4 MG/2 ML VIAL IV PUSH ×2 (05:16→13:07)
[2024-08-08 06:41] LABS: Hematocrit 53.3 % (42.0-52.0); Hemoglobin 17.1 g/dL (14.0-18.0); Mean Corpuscular HGB Conc 32.1 g/dl (32-36); Mean Corpuscular Hemoglobin 29.7 pg (26-34); Mean Corpuscular Volume 92.7 fl (80-100); Mean Platelet Volume 10.2 fl (7.4-10.4); Platelet Count Result 271 k/mm3 (150-375); Red Blood Count 5.75 M/mm3 (4.6-6.20); Red Cell Distribution Width 12.7 % (11.5-14.5); White Blood Count 12.6 K/mm3 (4.5-10.0)
[2024-08-08 07:07] LABS: Alanine Aminotransferase 45 U/L (6-50); Albumin Level 4.6 g/dL (3.5-5.1); Alkaline Phosphatase 68 U/L (38-126); Anion Gap 10 mmol/L (4-12); Aspartate Amino Transferase 32 U/L (17-59); Bilirubin,Total 1.4 mg/dL (0.2-1.3); Blood Urea Nitrogen 39 mg/dL (9-20); Calcium 9.8 mg/dL (8.4-10.2); Carbon Dioxide 29 mmol/L (22-30); Chloride 97 mmol/L (98-107); Estimated CRCL calculation 69 ml/min; Estimated Glomerular Filt Rate > 60; Glucose 177 mg/dL (65-110); Potassium 4.7 mmol/L (3.4-5.0); Sodium 136 mmol/L (137-145)
[2024-08-08 07:47] LABS: Glucose Point of Care 199 mg/dl (65-105)
[2024-08-08 08:00] VITALS: O2SAT 96
[2024-08-08] MEDS: guaiFENesin 12 HR 600 MG TABCR 1200 MG PO ×2 (09:55→20:16)
[2024-08-08] MEDS: GABAPENTIN 100 MG CAPSULE PO ×3 (09:55→17:30)
[2024-08-08] MEDS: INSULIN GLARGINE (*BKC) 100 UNITS/ML 12 UNITS SUB-Q (09:55)
[2024-08-08] MEDS: PARoxetine 10 MG TABLET 30 MG PO (09:55)
[2024-08-08] MEDS: amLODIPine BESYLATE 5 MG TABLET BY MOUTH (09:55)
[2024-08-08] MEDS: lisinopriL 20 MG TABLET PO (09:55)
[2024-08-08] MEDS: LIDOCAINE 5% PATCH 1 PATCH TRANSDERM (09:55)
[2024-08-08] MEDS: EMPAGLIFLOZIN 25 MG TABLET PO (09:55)
[2024-08-08 11:22] LABS: Glucose Point of Care 175 mg/dl (65-105)
[2024-08-08] MEDS: HYDROmorphone HCL INJ (*CRX) 2 MG/ML VIAL 1 MG IV PUSH (13:07)
[2024-08-08 14:00] VITALS: BP 97/67; PULSE 99; RESP 16; TEMP 36.4; O2SAT 94
[2024-08-08] MEDS: polyethylene glycoL 3350 17 GM POWD.PACK PO (15:46)
[2024-08-08 16:41] LABS: Glucose Point of Care 257 mg/dl (65-105)
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
[2024-08-08] MEDS: INSULIN ASPART (*BKC) 100 UNITS/ML SUB-Q ×2 (17:30→20:51)
[2024-08-08] MEDS: SIMVASTATIN 20 MG TABLET 40 MG PO (17:30)
[2024-08-08 20:30] VITALS: O2SAT 94
[2024-08-08 20:36] LABS: Glucose Point of Care 266 mg/dl (65-105)
[2024-08-08 21:00] VITALS: BP 115/58; PULSE 87; RESP 16; TEMP 35.9; O2SAT 95
[2024-08-09] VITALS (7 sets, daily range): BP systolic 109–122; BP diastolic 65–71; PULSE 74–96; RESP 16–20; TEMP 35.8–36.6; O2SAT 95–100
[2024-08-09] MEDS: dexAMETHasone SOD PHOS INJ 4 MG/ML VIAL IV PUSH ×3 (05:17→17:46)
[2024-08-09] MEDS: HYDROcodone/acetaminophen (*CRX) 5-325 MG TABLET 1 TAB PO ×4 (05:22→21:02)
[2024-08-09 07:03] LABS: Hematocrit 50.2 % (42.0-52.0); Hemoglobin 16.5 g/dL (14.0-18.0); Mean Corpuscular HGB Conc 32.9 g/dl (32-36); Mean Corpuscular Volume 91.3 fl (80-100); Mean Platelet Volume 10.3 fl (7.4-10.4); Platelet Count Result 266 k/mm3 (150-375); Red Cell Distribution Width 12.6 % (11.5-14.5); White Blood Count 12.3 K/mm3 (4.5-10.0)
[2024-08-09 07:22] LABS: Alanine Aminotransferase 35 U/L (6-50); Albumin Level 4.3 g/dL (3.5-5.1); Alkaline Phosphatase 64 U/L (38-126); Anion Gap 9 mmol/L (4-12); Aspartate Amino Transferase 26 U/L (17-59); Bilirubin,Total 1.3 mg/dL (0.2-1.3); Blood Urea Nitrogen 47 mg/dL (9-20); Calcium 9.4 mg/dL (8.4-10.2); Carbon Dioxide 27 mmol/L (22-30); Chloride 98 mmol/L (98-107); Estimated CRCL calculation 71 ml/min; Estimated Glomerular Filt Rate > 60; Glucose 198 mg/dL (65-110); Potassium 4.8 mmol/L (3.4-5.0); Sodium 134 mmol/L (137-145); Total Protein 7.3 g/dL (6.3-8.2)
[2024-08-09 07:31] LABS: Glucose Point of Care 195 mg/dl (65-105)
[2024-08-09] MEDS: PARoxetine 10 MG TABLET 30 MG PO (08:25)
[2024-08-09] MEDS: lisinopriL 20 MG TABLET PO (08:25)
[2024-08-09] MEDS: amLODIPine BESYLATE 5 MG TABLET BY MOUTH (08:25)
[2024-08-09] MEDS: guaiFENesin 12 HR 600 MG TABCR 1200 MG PO ×2 (08:25→21:02)
[2024-08-09] MEDS: EMPAGLIFLOZIN 25 MG TABLET PO (08:25)
[2024-08-09] MEDS: GABAPENTIN 100 MG CAPSULE PO ×3 (08:25→16:40)
[2024-08-09] MEDS: VIBEGRON 75 MG 75 EACH BY MOUTH (08:27)
[2024-08-09] MEDS: INSULIN GLARGINE (*BKC) 100 UNITS/ML 12 UNITS SUB-Q (08:29)
--- NOTE | 2024-08-09 10:23 | PCNWS ---
Weekly nutritional screen. Patient is tolerating current diet Diabetic, heart healthy with adequate intake, 75-100%. No weight loss reported. No nutritional needs at this time.
[2024-08-09 11:36] LABS: Glucose Point of Care 268 mg/dl (65-105)
[2024-08-09] MEDS: INSULIN ASPART (*BKC) 100 UNITS/ML SUB-Q ×3 (11:37→21:05)
[2024-08-09] MEDS: polyethylene glycoL 3350 17 GM POWD.PACK PO (15:07)
[2024-08-09 16:36] LABS: Glucose Point of Care 260 mg/dl (65-105)
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
[2024-08-09] MEDS: SIMVASTATIN 20 MG TABLET 40 MG PO (17:46)
[2024-08-10] VITALS (8 sets, daily range): BP systolic 119–130; BP diastolic 62–77; PULSE 82–95; RESP 16–20; TEMP 35.9–36.9; O2SAT 94–99
[2024-08-10] MEDS: dexAMETHasone SOD PHOS INJ 4 MG/ML VIAL IV PUSH ×4 (00:12→17:22)
[2024-08-10] MEDS: HYDROcodone/acetaminophen (*CRX) 5-325 MG TABLET 1 TAB PO ×3 (03:13→21:52)
[2024-08-10 05:59] LABS: Hematocrit 51.4 % (42.0-52.0); Hemoglobin 17.3 g/dL (14.0-18.0); Mean Corpuscular HGB Conc 33.7 g/dl (32-36); Mean Corpuscular Hemoglobin 30.6 pg (26-34); Mean Corpuscular Volume 90.8 fl (80-100); Mean Platelet Volume 10.3 fl (7.4-10.4); Platelet Count Result 284 k/mm3 (150-375); Red Blood Count 5.66 M/mm3 (4.6-6.20); Red Cell Distribution Width 12.4 % (11.5-14.5); White Blood Count 14.7 K/mm3 (4.5-10.0)
[2024-08-10 06:28] LABS: Glucose Point of Care 282 mg/dl (65-105)
[2024-08-10 07:18] LABS: Alanine Aminotransferase 32 U/L (6-50); Albumin Level 4.3 g/dL (3.5-5.1); Alkaline Phosphatase 76 U/L (38-126); Anion Gap 11 mmol/L (4-12); Aspartate Amino Transferase 21 U/L (17-59); Bilirubin,Total 1.2 mg/dL (0.2-1.3); Blood Urea Nitrogen 45 mg/dL (9-20); Calcium 9.8 mg/dL (8.4-10.2); Carbon Dioxide 26 mmol/L (22-30); Chloride 99 mmol/L (98-107); Estimated CRCL calculation 64 ml/min; Estimated Glomerular Filt Rate > 60; Glucose 241 mg/dL (65-110); Potassium 5.9 mmol/L (3.4-5.0); Sodium 136 mmol/L (137-145); Total Protein 7.3 g/dL (6.3-8.2)
[2024-08-10 07:25] LABS: Glucose Point of Care 230 mg/dl (65-105)
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
[2024-08-10] MEDS: INSULIN ASPART (*BKC) 100 UNITS/ML SUB-Q ×4 (09:27→21:05)
[2024-08-10] MEDS: INSULIN GLARGINE (*BKC) 100 UNITS/ML 12 UNITS SUB-Q (09:28)
[2024-08-10] MEDS: PARoxetine 10 MG TABLET 30 MG PO (09:35)
[2024-08-10] MEDS: amLODIPine BESYLATE 5 MG TABLET BY MOUTH (09:35)
[2024-08-10] MEDS: guaiFENesin 12 HR 600 MG TABCR 1200 MG PO ×2 (09:35→21:01)
[2024-08-10] MEDS: EMPAGLIFLOZIN 25 MG TABLET PO (09:36)
[2024-08-10] MEDS: GABAPENTIN 100 MG CAPSULE PO ×3 (09:36→17:17)
[2024-08-10] MEDS: LIDOCAINE 5% PATCH 1 PATCH TRANSDERM (09:39)
[2024-08-10] MEDS: ALBUTEROL SULFATE NEB 2.5 MG/3 ML INH 1.25 MG INHALATION (09:49)
[2024-08-10] MEDS: VIBEGRON 75 MG 75 EACH BY MOUTH (09:52)
[2024-08-10 10:17] LABS: Glucose Point of Care 217 mg/dl (65-105)
[2024-08-10] MEDS: SODIUM POLYSTYRENE SULFONONATE 15 GM/60 ML BTL PO (10:20)
[2024-08-10] MEDS: INSULIN HUMAN REGULAR (*BKC) 100 UNITS/ML SUB-Q (10:22)
[2024-08-10 11:03] LABS: Glucose Point of Care 230 mg/dl (65-105)
[2024-08-10 11:37] LABS: Glucose Point of Care 224 mg/dl (65-105)
[2024-08-10 12:16] LABS: Glucose Point of Care 220 mg/dl (65-105)
[2024-08-10 13:50] LABS: Potassium 4.5 mmol/L (3.4-5.0)
--- NOTE | 2024-08-10 13:59 | PC.NURSE ---
On 08/10/24, the INVOICE CHECKER, [Diana Branch ], provided care and completed [facility] documentation on this patient. I have reviewed the INVOICE CHECKER's documentation and agree with the findings.
[2024-08-10] MEDS: LACTULOSE 20 GM/30 ML UDC PO (15:06)
[2024-08-10] MEDS: polyethylene glycoL 3350 17 GM POWD.PACK PO (15:06)
[2024-08-10 16:47] LABS: Glucose Point of Care 223 mg/dl (65-105)
[2024-08-10] MEDS: SIMVASTATIN 20 MG TABLET 40 MG PO (17:17)
[2024-08-10] MEDS: SENNA/DOCUSATE SODIUM TABLET 1 TAB PO (21:04)
[2024-08-10 22:04] LABS: Glucose Point of Care 279 mg/dl (65-105)
[2024-08-11] MEDS: dexAMETHasone SOD PHOS INJ 4 MG/ML VIAL IV PUSH ×4 (00:39→18:12)
[2024-08-11] MEDS: HYDROcodone/acetaminophen (*CRX) 5-325 MG TABLET 1 TAB PO ×3 (05:49→18:11)
[2024-08-11 06:00] VITALS: BP 127/66; PULSE 85; RESP 18; TEMP 36.4; O2SAT 95
[2024-08-11 07:46] LABS: Glucose Point of Care 200 mg/dl (65-105)
[2024-08-11] MEDS: HYDROmorphone HCL INJ (*CRX) 2 MG/ML VIAL 1 MG IV PUSH (10:01)
[2024-08-11] MEDS: INSULIN GLARGINE (*BKC) 100 UNITS/ML 12 UNITS SUB-Q (10:03)
[2024-08-11] MEDS: VIBEGRON 75 MG 75 EACH BY MOUTH (10:06)
[2024-08-11] MEDS: EMPAGLIFLOZIN 25 MG TABLET PO (10:07)
[2024-08-11] MEDS: LIDOCAINE 5% PATCH 1 PATCH TRANSDERM (10:07)
[2024-08-11] MEDS: amLODIPine BESYLATE 5 MG TABLET BY MOUTH (10:07)
[2024-08-11] MEDS: guaiFENesin 12 HR 600 MG TABCR 1200 MG PO ×2 (10:07→20:31)
[2024-08-11] MEDS: GABAPENTIN 100 MG CAPSULE PO ×3 (10:07→18:09)
[2024-08-11] MEDS: PARoxetine 10 MG TABLET 30 MG PO (10:07)
[2024-08-11 11:42] LABS: Glucose Point of Care 203 mg/dl (65-105)
[2024-08-11] MEDS: INSULIN ASPART (*BKC) 100 UNITS/ML SUB-Q ×2 (11:53→20:33)
--- NOTE | 2024-08-11 12:54 | PM.IMPN ---
Subjective Date/time seen: 08/11/24 12:54 Interval history: Called multiple times the insurance and left voicemail. As per physical therapy ,patient is very motivated and participated in bed mobility, transfers and gait and exercise. Patient increased gait distance. Objective Data Vital Signs Vital Signs: Vital Signs - 24 hr 08/10/24 14:00 08/10/24 20:00 08/10/24 22:00 Temperature 98.4 F 96.6 F L Pulse Rate 91 95 Respiratory Rate 16 18 Blood Pressure 119/77 130/69 Pulse Oximetry 99 94 Oxygen Delivery Room Air Fraction of Inspired Oxygen 21 08/11/24 06:00 Temperature 97.6 F Pulse Rate 85 Respiratory Rate 18 Blood Pressure 127/66 Pulse Oximetry 95 Oxygen Delivery Fraction of Inspired Oxygen Intake/Output Intake/Output: Intake & Output 08/08/24 08/09/24 08/10/24 08/11/24 23:59 23:59 23:59 23:59 Intake Total 2801 3020 2970 1290 Output Total 3100 3400 2500 1800 Balance -299 -380 470 -510 Meds/Results Medications: Active Medications Generic Name Dose Route Start Last Admin Trade Name Freq PRN Reason Stop Dose Admin Acetaminophen 650 mg 08/02/24 10:56 08/05/24 15:47 Acetaminophen 325 Mg Tablet PO 650 mg Q4H PRN Administration Mild Pain (1-3) or Fever Hydrocodone Bitart/Acetaminophen 1 tab 08/02/24 10:56 08/11/24 12:02 Hydrocodone/Acetaminophen (*Crx) 5-325 Mg Tablet PO 1 tab Q4H PRN Administration Pain Rated 4-6 Amlodipine Besylate 5 mg 08/03/24 09:00 08/11/24 10:07 Amlodipine Besylate 5 Mg Tablet BY MOUTH 5 mg DAILY BETHANIE Administration Cyclobenzaprine HCl 10 mg 08/03/24 16:15 08/08/24 17:30 Cyclobenzaprine Hcl 10 Mg Tablet PO 10 mg Q8H PRN Administration Muscle Spasm Dexamethasone Sodium Phosphate 4 mg 08/07/24 12:00 08/11/24 05:49 Dexamethasone Sod Phos Inj 4 Mg/Ml Vial IV PUSH 4 mg Q6HR BETHANIE Administration Dextrose 12.5 gm 08/02/24 14:11 Dextrose 50% 25 Gm/50 Ml Syringe IV PUSH PRN PRN Hypoglycemia Protocol Empagliflozin 25 mg 08/03/24 09:00 08/11/24 10:07 Empagliflozin 25 Mg Tablet PO 25 mg DAILY BETHANIE Administration Gabapentin 100 mg 08/05/24 17:00 08/11/24 10:07 Gabapentin 100 Mg Capsule PO 100 mg TID BETHANIE Administration Glucagon 1 mg 08/02/24 14:11 Glucagon For Inj 1 Mg Vial IM PRN PRN Hypoglycemia Protocol Glucose 15 gm 08/02/24 14:11 Glucose Oral Gel 15 Gm Of Glucse In 37.5 Gm Tube PO PRN PRN Hypoglycemia Protocol Guaifenesin 1,200 mg 08/04/24 23:10 08/11/24 10:07 Guaifenesin 12 Hr 600 Mg Tabcr PO 1,200 mg Q12HR BETHANIE Administration Hydromorphone HCl 1 mg 08/03/24 11:15 08/11/24 10:01 Hydromorphone Hcl Inj (*Crx) 2 Mg/Ml Vial IV PUSH 1 mg Q3H PRN Administration Pain Rated 7-10 Dextrose 1,000 mls @ 100 mls/hr 08/02/24 14:11 Dextrose 5% 1,000 Ml IVPB PRN PRN Hypoglycemia Protocol Insulin Aspart 3 - 6 units 08/02/24 17:00 08/11/24 11:53 Insulin Aspart (*Bkc) 100 Units/Ml SUB-Q 3 units TIDWM BETHANIE Administration Protocol Insulin Aspart 1 - 3 units 08/02/24 21:00 08/10/24 21:05 Insulin Aspart (*Bkc) 100 Units/Ml SUB-Q 2 units HS BETHANIE Administration Protocol Insulin Glargine 12 units 08/03/24 12:00 08/11/24 10:03 Insulin Glargine (*Bkc) 100 Units/Ml SUB-Q 12 units DAILY BETHANIE Administration Lidocaine 1 patch 08/02/24 21:05 08/11/24 10:07 Lidocaine 5% Patch TRANSDERM 1 patch DAILY BETHANIE Administration Lisinopril 20 mg 08/03/24 09:00 08/10/24 09:53 Lisinopril 20 Mg Tablet PO Not Given QAM BETHANIE Miscellaneous Information 1 each 08/11/24 00:01 Please Renew _. Per [employer] Procedure, It Will Discontinue If Not Renewed XX 09/10/24 00:00 CLARIFY BETHANIE Ozempic 2mg *Use 2 mg 08/07/24 15:00 08/07/24 14:45 Home Supply SUB-Q 09/06/24 14:59 2 mg WEEKLY BETHANIE Administration Gemtesa 75mg *Home 75 mg 08/09/24 09:00 08/11/24 10:06 Supply* BY MOUTH 09/08/24 08:59 75 mg DAILY BETHANIE Administration Ondansetron HCl 4 mg 08/02/24 10:56 08/08/24 13:07 Ondansetron Inj 4 Mg/2 Ml Vial IV PUSH 4 mg Q4H PRN Administration Nausea Paroxetine HCl 30 mg 08/03/24 09:00 08/11/24 10:07 Paroxetine 10 Mg Tablet PO 30 mg QAM BETHANIE Administration Polyethylene Glycol 17 gm 08/07/24 15:00 08/10/24 15:06 Polyethylene Glycol 3350 17 Gm Powd.Pack PO 17 gm 1500 BETHANIE Administration Senna/Docusate Sodium 1 tab 08/10/24 21:00 08/10/24 21:04 Senna/Docusate Sodium Tablet PO 1 tab HS BETHANIE Administration Simvastatin 40 mg 08/02/24 18:00 08/10/24 17:17 Simvastatin 20 Mg Tablet PO 40 mg QPM BETHANIE Administration Radiology Results: ITS Impressions Chest X-Ray 08/02/24 07:46 Impression: Clear lungs. Cervical Spine CT 08/02/24 07:47 Impression: No fracture or subluxation of the cervical spine. Extensive degenerative spondylosis, as above. Head CT 08/02/24 07:47 Impression: No intracranial hemorrhage, mass, or acute infarct. Chronic white matter changes, as above. Thoracic Spine CT 08/02/24 07:50 Impression: Extensive DISH. No acute abnormality seen. Chest CT 08/02/24 10:05 IMPRESSION: No acute left-sided rib or scapular fracture. Findings within the right posterior fifth rib which may represent a nondisplaced fracture, for which clinical correlation is needed (for the presence or absence of point tenderness). Nodular (likely) scarring is also noted within the superior segment of the right lower lobe for which follow-up as per Fleischner guidelines is recommended (CT in 3 months, PET CT or tissue sampling). Scapula X-Ray 08/04/24 12:23 IMPRESSION: 1. Osteoarthritis, mild at the left glenohumeral and acromioclavicular joints and severe at the left lower cervical facet joints. Cervical Spine MRI 08/05/24 13:59 IMPRESSION: 1. Severe cervical spondylosis. ADDENDUM: 08/05/24 1446 ADDENDUM: There is fluid signal in the posterior paraspinal musculature at the cervicothoracic junction suggestive of muscle strain as well as increased fluid signal in the C6-C7 interspinous process space suggestive of sprain of the interspinous ligament. Thoracic Spine MRI 08/05/24 14:24 IMPRESSION: 1. Moderate to severe thoracic spondylosis with no acute osseous abnormality. 2. Increased signal in the cervical and upper thoracic paraspinal musculature and in the C6-C7 interspinous space suggesting possible muscle strain and ligament sprain respectively. Abdomen X-Ray 08/06/24 23:37 IMPRESSION: NO ACUTE ABDOMINAL FINDINGS. Labs Labs: Laboratory Results - last 24 hr 08/10/24 08/10/24 08/10/24 12:52 16:40 20:57 Potassium 4.5 POC Capillary Glucose 223 H 279 H 08/11/24 08/11/24 07:44 11:35 Potassium POC Capillary Glucose 200 H 203 H Hospitalist MIPS Advance Care Plan I have confirmed that the patient's Advanced Care Plan is present, code status is documented, or surrogate decision maker is listed in patient medical record.: Yes Medication Reconciliation I have utilized all available resources to obtain, update and review the patients current medications (includes all prescriptions, OTC, herbals, cannabis, and nutritional supplements).: Yes
[2024-08-11 14:00] VITALS: BP 137/74; PULSE 83; RESP 18; TEMP 36.4; O2SAT 98
[2024-08-11 16:54] LABS: Glucose Point of Care 149 mg/dl (65-105)
[2024-08-11 17:05] LABS: Alanine Aminotransferase 38 U/L (6-50); Albumin Level 4.3 g/dL (3.5-5.1); Alkaline Phosphatase 78 U/L (38-126); Anion Gap 11 mmol/L (4-12); Aspartate Amino Transferase 22 U/L (17-59); Bilirubin,Total 1.3 mg/dL (0.2-1.3); Blood Urea Nitrogen 39 mg/dL (9-20); Calcium 9.3 mg/dL (8.4-10.2); Carbon Dioxide 20 mmol/L (22-30); Chloride 98 mmol/L (98-107); Estimated CRCL calculation 81 ml/min; Estimated Glomerular Filt Rate > 60; Glucose 150 mg/dL (65-110); Potassium 4.6 mmol/L (3.4-5.0); Sodium 129 mmol/L (137-145); Total Protein 7.2 g/dL (6.3-8.2)
[2024-08-11] MEDS: SIMVASTATIN 20 MG TABLET 40 MG PO (18:09)
[2024-08-11 20:20] LABS: Glucose Point of Care 251 mg/dl (65-105)
[2024-08-11] MEDS: SENNA/DOCUSATE SODIUM TABLET 1 TAB PO (20:31)
[2024-08-11 21:14] VITALS: BP 124/88; PULSE 87; RESP 16; TEMP 36.7; O2SAT 97
[2024-08-11 21:31] VITALS: O2SAT 97
[2024-08-11 22:30] VITALS: PULSE 85; O2SAT 97
[2024-08-12] MEDS: dexAMETHasone SOD PHOS INJ 4 MG/ML VIAL IV PUSH ×4 (00:13→16:47)
[2024-08-12] MEDS: HYDROcodone/acetaminophen (*CRX) 5-325 MG TABLET 1 TAB PO ×2 (00:17→08:43)
[2024-08-12 03:00] VITALS: PULSE 81; O2SAT 96
[2024-08-12 05:12] VITALS: BP 142/83; PULSE 81; RESP 16; TEMP 36.7; O2SAT 98
[2024-08-12 06:29] LABS: Hematocrit 51.5 % (42.0-52.0); Hemoglobin 17.4 g/dL (14.0-18.0); Mean Corpuscular HGB Conc 33.8 g/dl (32-36); Mean Corpuscular Hemoglobin 30.3 pg (26-34); Mean Corpuscular Volume 89.7 fl (80-100); Mean Platelet Volume 10.3 fl (7.4-10.4); Platelet Count Result 266 k/mm3 (150-375); Red Blood Count 5.74 M/mm3 (4.6-6.20); Red Cell Distribution Width 12.3 % (11.5-14.5); White Blood Count 12.1 K/mm3 (4.5-10.0)
[2024-08-12 07:44] LABS: Glucose Point of Care 212 mg/dl (65-105)
[2024-08-12] MEDS: EMPAGLIFLOZIN 25 MG TABLET PO (08:44)
[2024-08-12] MEDS: guaiFENesin 12 HR 600 MG TABCR 1200 MG PO ×2 (08:44→20:35)
[2024-08-12] MEDS: GABAPENTIN 100 MG CAPSULE PO ×3 (08:44→16:45)
[2024-08-12] MEDS: PARoxetine 10 MG TABLET 30 MG PO (08:44)
[2024-08-12] MEDS: amLODIPine BESYLATE 5 MG TABLET BY MOUTH (08:44)
[2024-08-12] MEDS: INSULIN ASPART (*BKC) 100 UNITS/ML SUB-Q ×3 (08:45→20:35)
[2024-08-12] MEDS: VIBEGRON 75 MG 75 EACH BY MOUTH (08:46)
[2024-08-12] MEDS: INSULIN GLARGINE (*BKC) 100 UNITS/ML 12 UNITS SUB-Q (08:46)
[2024-08-12] MEDS: LIDOCAINE 5% PATCH 1 PATCH TRANSDERM (09:26)
[2024-08-12 11:35] LABS: Glucose Point of Care 189 mg/dl (65-105)
[2024-08-12] MEDS: CYCLOBENZAPRINE HCL 10 MG TABLET PO ×2 (12:50→20:39)
[2024-08-12] MEDS: ACETAMINOPHEN 325 MG TABLET 650 MG PO (12:50)
[2024-08-12 13:57] VITALS: BP 135/83; PULSE 99; RESP 16; TEMP 36.9; O2SAT 93
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
[2024-08-12 16:17] LABS: Glucose Point of Care 206 mg/dl (65-105)
[2024-08-12] MEDS: polyethylene glycoL 3350 17 GM POWD.PACK PO (16:44)
[2024-08-12] MEDS: SIMVASTATIN 20 MG TABLET 40 MG PO (16:47)
[2024-08-12 20:06] LABS: Glucose Point of Care 301 mg/dl (65-105)
[2024-08-12 20:14] VITALS: PULSE 88; RESP 20; O2SAT 97
[2024-08-12 20:15] VITALS: PULSE 88; O2SAT 97
[2024-08-12] MEDS: SENNA/DOCUSATE SODIUM TABLET 1 TAB PO (20:35)
[2024-08-12 21:20] VITALS: BP 131/80; PULSE 95; RESP 16; TEMP 36.3; O2SAT 99
[2024-08-13] MEDS: dexAMETHasone SOD PHOS INJ 4 MG/ML VIAL IV PUSH ×3 (00:55→11:51)
[2024-08-13] MEDS: HYDROcodone/acetaminophen (*CRX) 5-325 MG TABLET 1 TAB PO ×3 (00:58→13:11)
[2024-08-13 01:24] VITALS: PULSE 83; O2SAT 97
[2024-08-13 04:21] VITALS: PULSE 84; O2SAT 96
[2024-08-13 05:10] VITALS: BP 145/85; PULSE 88; RESP 16; TEMP 36.4; O2SAT 98
[2024-08-13 06:06] LABS: Hematocrit 50.6 % (42.0-52.0); Hemoglobin 17.1 g/dL (14.0-18.0); Mean Corpuscular HGB Conc 33.8 g/dl (32-36); Mean Corpuscular Hemoglobin 30.4 pg (26-34); Mean Platelet Volume 10.2 fl (7.4-10.4); Platelet Count Result 245 k/mm3 (150-375); Red Blood Count 5.62 M/mm3 (4.6-6.20); Red Cell Distribution Width 12.5 % (11.5-14.5); White Blood Count 13.2 K/mm3 (4.5-10.0)
[2024-08-13 06:22] LABS: Alanine Aminotransferase 30 U/L (6-50); Albumin Level 4.1 g/dL (3.5-5.1); Alkaline Phosphatase 77 U/L (38-126); Anion Gap 8 mmol/L (4-12); Aspartate Amino Transferase 18 U/L (17-59); Bilirubin,Total 1.4 mg/dL (0.2-1.3); Blood Urea Nitrogen 43 mg/dL (9-20); Calcium 9.5 mg/dL (8.4-10.2); Carbon Dioxide 25 mmol/L (22-30); Chloride 99 mmol/L (98-107); Estimated CRCL calculation 62 ml/min; Estimated Glomerular Filt Rate > 60; Glucose 197 mg/dL (65-110); Potassium 5.6 mmol/L (3.4-5.0); Sodium 132 mmol/L (137-145); Total Protein 6.9 g/dL (6.3-8.2)
[2024-08-13 07:47] LABS: Glucose Point of Care 197 mg/dl (65-105)
[2024-08-13] MEDS: EMPAGLIFLOZIN 25 MG TABLET PO (09:39)
[2024-08-13] MEDS: amLODIPine BESYLATE 5 MG TABLET BY MOUTH (09:39)
[2024-08-13] MEDS: guaiFENesin 12 HR 600 MG TABCR 1200 MG PO (09:39)
[2024-08-13] MEDS: GABAPENTIN 100 MG CAPSULE PO ×2 (09:39→13:11)
[2024-08-13] MEDS: PARoxetine 10 MG TABLET 30 MG PO (09:39)
[2024-08-13] MEDS: CYCLOBENZAPRINE HCL 10 MG TABLET PO (09:39)
[2024-08-13] MEDS: LIDOCAINE 5% PATCH 1 PATCH TRANSDERM (09:40)
[2024-08-13] MEDS: VIBEGRON 75 MG 75 EACH BY MOUTH (09:40)
[2024-08-13] MEDS: INSULIN GLARGINE (*BKC) 100 UNITS/ML 12 UNITS SUB-Q (09:41)
[2024-08-13] MEDS: SODIUM POLYSTYRENE SULFONONATE 15 GM/60 ML BTL PO (10:37)
[2024-08-13 11:24] LABS: Glucose Point of Care 308 mg/dl (65-105)
[2024-08-13] MEDS: INSULIN ASPART (*BKC) 100 UNITS/ML SUB-Q (11:50)
--- NOTE | 2024-08-13 13:17 | PM.DS ---
DS: Admitting Diagnosis Discharge Date 08/13/24 Admitting Diagnosis Fall. DS: Discharge Diagnosis Discharge Diagnosis (1) Severe back pain: Code(s): M54.9 - Dorsalgia, unspecified Status: Acute DS: Summary Hospital Course Hospital Course: This is a 74-year-old male with hypertension, hyperlipidemia, insulin-dependent type 2 diabetes mellitus, depression, anxiety, and overactive bladder presented to the emergency department via EMS from home for evaluation after a fall. He went to a bourbon tasting and consumed a lot more alcohol than his typical for him and he admits that he was intoxicated. Once it was time to leave he stood up but lost his balance and fell down on to the ceramic floor, landing somewhat on his left side in onto his back. Friends helped him into the car and his drove him home. He made it into the home but was unable to stand up due to feelings of dizziness and he sat back down the ground. He was able to crawl to the bedroom but was unable to get himself up into the bed due to severe muscle pain between his scapulae from the fall. He decide to sleep on the floor in the bedroom instead. This morning he still had difficulties getting up due to the pain and came in for evaluation. In addition to the back pain, he complains of aching discomfort in his arms which he attributes to attempting to get himself up to bed for quite a long period of time last night. He denies head trauma and loss of consciousness in the fall. In the ED: Vital signs on arrival include a blood pressure 131/79, pulse 117, respiratory 20, SpO2 100% on room air. Labs were significant for a carbon dioxide of 20, anion gap 16, BUN 24, glucose 192, total CK 970. CT of the head, cervical spine, and thoracic spine were without acute findings. Chest CT showed a possible right posterior 5th rib fracture and nodular scarring in the superior segment of the right lower lobe. He was given hydromorphone ketorolac with ongoing pain he is being admitted for pain control. MRI cervicothorax spine showed severe cervical spondylosis, neurosurgery was consulted, evaluated patient and noted no changes requiring surgical intervention. Recommending conservative managed. Patient was treated with Dexamethasone, Franklin and Cyclobenzaprine . Patient idiscarged don Cyclobenzaprine, Franklin and weaning dose of dexamethsaone. continue other home meds Discharged to SNF. F/u with PCP in 3-5 days F/u with Neurosurgery as instructed Time Spent with Patient Time attestation: Total time spent providing and/or coordinating discharge services: DS: Data Data Completed and Pending Labs on day of discharge: Labs from last 24 hours 08/13/24 08/13/24 08/13/24 11:15 07:37 05:42 WBC 13.2 H RBC 5.62 Hgb 17.1 Hct 50.6 MCV 90.0 MCH 30.4 MCHC 33.8 RDW 12.5 Plt Count 245 MPV 10.2 Sodium 132 L Potassium 5.6 H Chloride 99 Carbon Dioxide 25 Anion Gap 8 BUN 43 H Creatinine 1.12 Estim Creat Clear Calc 62 Estimated GFR > 60 Glucose 197 H POC Capillary Glucose 308 H 197 H Calcium 9.5 Total Bilirubin 1.4 H AST 18 ALT 30 Alkaline Phosphatase 77 Total Protein 6.9 Albumin 4.1 08/12/24 08/12/24 19:43 16:09 WBC RBC Hgb Hct MCV MCH MCHC RDW Plt Count MPV Sodium Potassium Chloride Carbon Dioxide Anion Gap BUN Creatinine Estim Creat Clear Calc Estimated GFR Glucose POC Capillary Glucose 301 H 206 H Calcium Total Bilirubin AST ALT Alkaline Phosphatase Total Protein Albumin Discharge Plan Discharge Attending physician on discharge: Ida Carlos Consulting providers: Vincent Gong Discharging Clinician: Ida Carlos Anticipated Discharge Date/Time: 08/13/24 12:58 Patient Disposition: SNF Activity: as tolerated Diet: as tolerated and regular Patient Language: Khmer Stand Alone Forms: General Discharge Information Follow-up/Referrals: Liu,Kris Guzman MD [Primary Care Provider] - (F/u with PCP in 3-5 days ) Vincent Gong MD [Physician] - (F/u with neurology as instructed ) Discharge Medications: New cyclobenzaprine 10 mg Tablet 10 mg PO Q8H PRN (Reason: Muscle Spasm) 14 Days Qty: 28 0RF hydrocodone-acetaminophen 5-325 mg Tablet 1 tablet PO Q4H PRN (Reason: Pain Rated 4-6) 14 Days Qty: 14 0RF lidocaine [Lidoderm] 5 % Adhesive Patch,Medicated 1 patch transdermal DAILY 30 Days Qty: 30 0RF gabapentin 100 mg Capsule 100 mg PO TID 14 Days Qty: 42 0RF dexamethasone 2 mg tablet 2 mg PO DIRECTED 8 Days Qty: 12 0RF Rx Instructions: 2mg tid x 2 days, then 1mg tid x 2 days, then 1mg bid x2 days then 1mg daily x 2 days then stop. Continued amlodipine-benazepril 5-20 mg capsule 1 cap PO DAILY Ozempic 2 mg/dose (8 mg/3 mL) pen injector 2 mg SUBCUT WEEKLY simvastatin 40 mg tablet 40 mg PO QPM paroxetine HCl 30 mg tablet 30 mg PO QAM metformin 500 mg tablet extended release 24 hr 500 mg PO DAILY Jardiance 25 mg tablet 25 mg PO DAILY insulin glargine U-300 conc [Toujeo SoloStar U-300 Insulin] 300 unit/mL (1.5 mL) insulin pen See Rx Instructions SUBCUT .COMPLEX Rx Instructions: 16 units subcutaneously; Gemtesa 75 mg tablet 75 mg PO DAILY Date of admission: 08/03/24 15:56 Primary Care Provider: Noe,Kris Guzman Admitting Provider: Ida Carlos Attending physician on admission: Ida Carlos Condition: Stable
== END 2024-08-13 13:30 | DRG 552 ==
LOC: ANHED 09:53 → ANH3MEDSUR 12:18
PROVIDERS: Family Medicine; General Practice; Physician Assistant; Admitting Provider Internal Medicine; Emergency Provider Emergency Medicine; PCP Internal Medicine; Visit Provider Internal Medicine
DX: M47.812 Spondylosis without myelopathy or radiculopathy, cervical region (principal); M62.82 Rhabdomyolysis; S22.32XA Fracture of one rib, left side, initial encounter for closed fracture; M54.9 Dorsalgia, unspecified; W07.XXXA Fall from chair, initial encounter; I10 Essential (primary) hypertension; E78.5 Hyperlipidemia, unspecified; E11.9 Type 2 diabetes mellitus without complications; N32.81 Overactive bladder; F41.8 Other specified anxiety disorders; J98.4 Other disorders of lung
CPT/HCPCS: 36415; 70450; 71045; 71250; 72125; 72128; 72141; 72146; 73010; 74018; 80048; 80053; 82550; 82948; 83036; 83735; 84132; 85025; 85027; 85610; 85730; 93005; 94640; 96361; 96374; 96375; 96376; 97110; 97116; 97162; 97166; 97530; 97535; 99285; A9270; G0378; J1100; J1171; J1815; J1885; J2270; J2405; J2919; J7030

== ENCOUNTER 2024-08-13 14:11 | Inpatient (IN) | payer MEDICARE, SELFPAY ==
[2024-08-13 14:30] VITALS: O2SAT 95; BMI 32.7
--- OUTSIDE RECORDS SUMMARY | 2024-08-13 15:36 | XMS_ITS | Clinical Summary ---
Author Organization [employer] [facility] Address [address] [place] [address] Care Team Providers Care Training And Development Coordinator Name Role Phone Unavailable Primary Care Provider Unavailabl e Source Comments [facility],non-owned Affiliates and Associated Physician Practices is amultiple site organization consisting of ambulatory clinics and hospital sitesin [place], [place], [place] and [place]. This disclosure is being madepursuant to the Care Everywhere program and may not contain all information available regarding this patient. 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
--- OUTSIDE RECORDS SUMMARY | 2024-08-13 15:36 | XMS_ITS | Encounter Summary ---
Author Organization [facility] Clinical [facility] Address [address] [place] [address] Phone Care Team Providers Care Research Specialist Name Role Phone Kris Liu MD Primary Care Provider Encounter Details Date Type Department Care Team (Late st Contact Info) Description 06/20/2024 Results Follow-Up [facility] [address] [place] [address] Kris Liu MD [address] [facility] [address] [place] [address] POCT hemoglobin A1c, CBC with auto differential, Comprehensive metabolic panel, Additional followed-up results: 2 Social History Tobacco Use Types Packs/Day Years Used Date Smoking Tobacco: Never Smokeless Tobacco: Former Chew Quit: 03/06/2018 Alcohol Use Standard Drinks/Week Comments Yes 6 (1 standard drink = 0.6 oz pur e alcohol) social AUDIT-C Answer Date Recorded Q1: How often do you have a drink containing alc ohol? 2-3 times a week 06/30/2022 Q2: How many drinks containi ng alcohol do you have on a typical day when you are drinking? 1 or 2 06/30/2022 Q3: How often do you have si x or more drinks on one occasion? 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
--- OUTSIDE RECORDS SUMMARY | 2024-08-13 15:36 | XMS_ITS | Clinical Summary ---
Author Organization [facility] Address [address] [place] [address] Care Team Providers Care Ocean Export Agent Name Role Phone Kris Liu MD Primary Care Provider Allergies No known active allergies Medications desonide (DESOWEN) 0.05 % cream Apply sparingly to AA on face BID PRN for redness and itching 60 g 08/14/19 19 Active multivit-min/ferr ous fumarate (MULTI VITAMIN ORAL) Take by mouth Active FISH OIL-DHA-EPA ORAL Take by mouth Active pen needle, diabetic 31 gauge x 5/16 needleIndications :Uncontrolled type 2 diabetes mellitus with hyperglycemia (HCC) Use to inject 1-4 times daily as directed. 90 each 3 08/09/19 24 Active sildenafiL (VIAGRA) 100 mg tabletIndications :Erectile dysfunction due to arterial insufficiency Take 1 tablet (100 mg total) by mouth daily as needed for erectile dysfunction 10 tablet 11 11/13/19 24 Active vibegron (Gemtesa) 75 mg tabletIndications :OAB (overactive bladder),Nocturia ,Urge incontinence Take 75 mg by mouth daily 90 tablet 3 11/13/19 24 Active blood-glucose sensor (FreeStyle Claudia 3 Sensor) device USE 1 SENSOR EVERY 2 WEEKS 3 each 3 06/05/19 25 Active semaglutide (Ozempic) 2 mg/dose (8 mg/3 mL) pen injector injection INJECT 2 MG SUBCUTANEOUSLY ONE TIME PER WEEK 3 mL 3 06/21/19 25 Active insulin glargine (TOUJEO) 300 unit/mL (1.5 mL) pen for injectionIndicati ons:type 2 diabetes mellitus Inject 15 Units under the skin daily 4.5 mL 3 06/21/19 Active empagliflozin (Jardiance) 25 mg tablet Take 1 tablet (25 mg total) by mouth daily 90 tablet 3 06/21/19 Active metFORMIN XR (GLUCOPHAGE XR) 500 mg 24 hr tablet Take 2 tablets (1,000 mg total) by mouth daily with breakfast 180 tablet 06/21/19 Active PARoxetine (PAXIL) 30 mg tablet Take 1 tablet (30 mg total) by mouth every morning 90 tablet 3 06/21/19 Active simvastatin (ZOCOR) 40 mg tablet Take 1 tablet (40 mg total) by mouth nightly 90 tablet 3 06/21/19 Active amLODIPine-benaze priL (LOTREL 5-20) 5-20 mg per capsuleIndication s:Primary hypertension Take 1 capsule by mouth daily 90 capsule 3 06/22/19 Active Active Problems Problem Noted Date Diagnosed Date Rhinitis 06/30/2022 Assessment & Plan (07/03/2022 3:44 PM CDT): He needs to take Zyrtec and flonase consistently. If no improvement in 2 weeks, consider tx for non-allergic rhinitis Other chest pain 01/05/2022 Assessment & Plan (01/05/2022 11:03 PM CDT): Atypical. EKG today NSR with no concerning findings. - I think we can safely observe this mild discomfort. We discussed red flag sx in detail and he will notify me immediately should this occur. Oropharyngeal dysphagia 06/29/2021 Assessment & Plan (08/10/2021 10:40 PM CDT): Seen by ENT with no lesions c/f malignancy on exam. Now resolved. Assessment & Plan (06/29/2021 10:20 PM CDT): Given hx of chewing tobacco and blood tinged sputum at times, needs further eval with ENT COVID-19 03/05/2021 Overview (03/05/2021): Sx began 03/04/21 Test shows positive 03/05/21 Discussed MAb and will proceed Age weight and DM2 and heart all big risks for progression despite protective vaccination series Assessment & Plan (03/05/2021 2:42 PM JOB SPOTTER): Proceed w/ MAb Medicare annual wellness visit, subsequent 05/15 Assessment & Plan (06/30/2022 4:32 PM CDT): - Depression screen: PHQ Screening PHQ-2 Total Score (If total score is 3 or more points, staff should administer the PHQ-9): 0 PHQ-9 Total Score: 0 - A1c: see dm - Lipids: see hld - AAA screening: nonsmoker - Colon cancer screening: cscope 09/2015 normal, but hx of polyp so due for next scope 09/2022 - Prostate ca screening: Benefits and risks discussed. Pt elects to be screened - Lung cancer screening: Not needed - HIV: not needed - HCV: screen today - Other STI: not needed - Influenza: rec - Td/Tdap thinks he is UTD - PPSV23: UTD - PCV13: UTD - Shingrix: UTD - COVID: rec bivalent booster Routine health maintenance objectives discussed including need for healthy diet and physical activity and orders placed for any outstanding screening studies as noted. Physical exam performed as above.Routine annual labs, if needed, have been ordered and will be reviewed with patient when results available. Assessment & Plan (06/29/2021 11:04 AM CDT): - Depression screen: PHQ Screening PHQ-2 Total Score (If total score is 3 or more points, staff should administer the PHQ-9): 0 - A1c: see dm - Lipids: see hld - AAA screening: nonsmoker - Colon cancer screening: utd 2016, unknown when due for f/u - Prostate ca screening: Benefits and risks discussed. Pt elects to be screened - Lung cancer screening: Not needed - HIV: not needed - HCV: screen today - Other STI: not needed - Influenza: rec - Td/Tdap thinks he is UTD - PPSV23: UTD - PCV13: give today - Shingrix: UTD - COVID: rec booster #2 Routine health maintenance objectives discussed including need for healthy diet and physical activity and orders placed for any outstanding screening studies as noted. Physical exam performed as above.Routine annual labs, if needed, have been ordered and will be reviewed with patient when results available. Primary osteoarthritis of left knee 06/27/2018 Overview (06/27/2018): Added automatically from request for surgery [id number] Peyronie's disease 02/05/2018 Overview (02/05/2018): Discussed 02/2018, he wants to wait on referral Obstructive sleep apnea syndrome 02/10/2014 Assessment & Plan (07/03/2022 3:44 PM CDT): Cont CPAP, benefits from use Assessment & Plan (06/29/2021 10:18 PM CDT): Cont CPAP Assessment & Plan (10/24/2019 2:04 PM CDT): Patient is compliant with CPAP therapy Clearly benefiting from therapy, should continue indefinately. Plan CPAP titration per protocol to make sure that the pressure has not changed. He has lost 50 pounds since his last visit. Assessment & Plan (09/17/2018 1:44 PM CDT): He will bring in the CPAP machine after the knee surgery Uncontrolled type 2 diabetes mellitus with hyper glycemia 02/09/2014 Overview (06/19/2020): On a full cout-press to keep off insulin w/ full dose MET+SGLT2i+GLP1RA Assessment & Plan (10/01/2022 2:19 PM CDT): Control is worsening Medication regimen: inc metformin XR to 1000mg qd, cont Jardiance 25mg every day, inc Ozempic to 2mg qweek. If he is not close to A1c at <7% at next appt he needs to start insulin. HbA1c Lab Results Component Value Date HGBA1C 9.9 09/29/2022 Albumin/Creatinine normal 09/2022 ACEi/ARB prescribed yes Statin prescribed yes Foot/extremity exam performed 06/2022, protective sensation intact Retinopathy screening performed 11/2021, no DR Pt counseled regarding diet, physical activity, medication adherence Assessment & Plan (07/03/2022 3:43 PM CDT): Control is worsening Medication regimen: Cont metformin 1000mg bid, Jardiance 25mg every day, cont Trulicity to 4.5mg qweek. HbA1c Lab Results Component Value Date HGBA1C 9.2 (H) 06/30/2022 Albumin/Creatinine No results found for: ALBCREATRATU. 35 10/2021, recheck in 1 year ACEi/ARB prescribed yes Statin prescribed yes Foot/extremity exam performed 06/2022, protective sensation intact Retinopathy screening performed 11/2021, no DR Pt counseled regarding diet, physical activity, medication adherence Assessment & Plan (01/05/2022 11:02 PM CDT): Control is worsening Medication regimen: Cont metformin 1000mg bid, Jardiance 25mg every day, inc Trulicity to 4.5mg qweek. HbA1c Lab Results Component Value Date HGBA1C 7.9 01/05/2022 Albumin/Creatinine No results found for: ALBCREATRATU. 35 10/2021, recheck in 1 year ACEi/ARB prescribed yes Statin prescribed yes Foot/extremity exam performed 06/2021, protective sensation intact Retinopathy screening performed 11/2021, no DR Pt counseled regarding diet, physical activity, medication adherence Assessment & Plan (10/04/2021 12:15 PM CDT): Control is improving! Applauded him on his diet changes. Medication regimen: Cont metformin 1000mg bid, Jardiance 25mg every day, Trulicity to 3mg qweek. Consider increasing Trulicity to 4.5mg qweek if A1c still above goal HbA1c Lab Results Component Value Date HGBA1C 10.2 06/29/2021 Albumin/Creatinine No results found for: ALBCREATRATU. Undetectable 09/2020 ACEi/ARB prescribed yes Statin prescribed yes Foot/extremity exam performed 06/2021, protective sensation intact Retinopathy screening performed 11/2020, no DR Pt counseled regarding diet, physical activity, medication adherence Assessment & Plan (08/10/2021 10:38 PM CDT): Control is improving on FSBG! Applauded him on his diet changes. Medication regimen: Cont metformin 1000mg bid, Jardiance 25mg every day, Trulicity to 3mg qweek. If no improvement at next appt, likely need to discuss basal insulin. HbA1c Lab Results Component Value Date HGBA1C 10.2 06/29/2021 Albumin/Creatinine No results found for: ALBCREATRATU. Undetectable 09/2020 ACEi/ARB prescribed yes Statin prescribed yes Foot/extremity exam performed 06/2021, protective sensation intact Retinopathy screening performed 2020, no DR Pt counseled regarding diet, physical activity, medication adherence Assessment & Plan (06/29/2021 10:22 PM CDT): Control is worsening Medication regimen: Cont metformin 1000mg bid, Jardiance 25mg every day, inc Trulicity to 3mg qweek. If no improvement at next appt, likely need to discuss basal insulin. HbA1c Lab Results Component Value Date HGBA1C 10.2 06/29/2021 Albumin/Creatinine No results found for: ALBCREATRATU. Undetectable 09/2020 ACEi/ARB prescribed yes Statin prescribed yes Foot/extremity exam performed 06/2021, protective sensation intact Retinopathy screening performed 2020, no DR Pt counseled regarding diet, physical activity, medication adherence Assessment & Plan (09/24/2020 11:14 AM CDT): Saw the RD and went over some things that really helped Assessment & Plan (06/19/2020 9:14 AM CDT): RD refer and measure the labs and such Assessment & Plan (12/09/2019 3:24 PM CDT): Move the metformin 500 every day to 500 am and 1g hs Assessment & Plan (05/16/2019 9:45 AM CDT): Needs proper compliance w/ meds and diet. We will start the trulicity as we are approacjhing the need for insulin Major depressive disorder 07/19/2013 Assessment & Plan (07/03/2022 3:44 PM CDT): Cont paroxetine 20mg every day Assessment & Plan (06/29/2021 10:19 PM CDT): Cont paroxetine 20mg every day Complete tear of rotator cuff 03/15/2011 Osteoarthritis of knee 10/23/2009 DJD (degenerative joint disease) 08/27/2009 HLD (hyperlipidemia) 08/27/2009 Assessment & Plan (07/03/2022 3:46 PM CDT): Lab Results Component Value Date CHOL 148 10/05/2021 CHOL 188 12/09/2019 Lab Results Component Value Date HDL 40 06/30/2022 HDL 48 10/05/2021 HDL 43 06/29/2021 Lab Results Component Value Date LDLCALC 52 06/30/2022 LDLCALC 76 06/29/2021 LDLCALC 66 06/19/2020 LDL 75 10/05/2021 Lab Results Component Value Date TRIG 232 (H) 06/30/2022 TRIG 146 10/05/2021 TRIG 388 (H) 06/29/2021 - cont simvastatin 40mg every day for now Assessment & Plan (10/04/2021 12:16 PM CDT): Lab Results Component Value Date CHOL 188 12/09/2019 Lab Results Component Value Date HDL 43 06/29/2021 HDL 35 (L) 06/19/2020 HDL 41 12/09/2019 Lab Results Component Value Date LDLCALC 76 06/29/2021 LDLCALC 66 06/19/2020 LDLCALC 87 12/09/2019 Lab Results Component Value Date TRIG 388 (H) 06/29/2021 TRIG 280 (H) 06/19/2020 TRIG 302 (H) 12/09/2019 - cont simvastatin 40mg every day and Vascepa for now. Consider changing to high intensity statin and stopping Vascepa (due to cost) HTN (hypertension) 08/27/2009 Assessment & Plan (10/01/2022 2:19 PM CDT): BP at goal <130/80. - Current medication regimen: cont amlodipine-benazepril 5-20mg qd - Counseled regarding lifestyle measures to control HTN including low salt diet rich in fruits and vegetables, limiting alcohol use, regular exercise, and weight loss of 5-10% if pt is obese. Assessment & Plan (07/03/2022 3:45 PM CDT): BP at goal <130/80. - Current medication regimen: cont amlodipine-benazepril 5-20mg qd - Counseled regarding lifestyle measures to control HTN including low salt diet rich in fruits and vegetables, limiting alcohol use, regular exercise, and weight loss of 5-10% if pt is obese. Assessment & Plan (01/05/2022 11:02 PM CDT): BP at goal <130/80. - Current medication regimen: cont amlodipine-benazepril 5-20mg qd - Counseled regarding lifestyle measures to control HTN including low salt diet rich in fruits and vegetables, limiting alcohol use, regular exercise, and weight loss of 5-10% if pt is obese. Assessment & Plan (06/29/2021 10:18 PM CDT): BP at goal <130/80. - Current medication regimen: cont amlodipine-benazepril 5-20mg qd - Counseled regarding lifestyle measures to control HTN including low salt diet rich in fruits and vegetables, limiting alcohol use, regular exercise, and weight loss of 5-10% if pt is obese. Assessment & Plan (09/17/2018 1:43 PM CDT): Hypertension is improving with treatment. Continue current treatment regimen. Dietary sodium restriction. Weight loss. Regular aerobic exercise. Continue current medications. Blood pressure will be reassessed in 3 months. Resolved Problems Problem Noted Date Diagnosed Date Resolved Date Chronic diarrhea 06/29/2021 06/30/2022 Assessment & Plan (06/29/2021 10:23 PM CDT): Rec trial of low lactose diet, starting metamucil bid to improve stool consistency Change in bowel function 02/04/2021 Overview (02/04/2021): Started 12/2020. There is associated RUQ discomfort and alt C and D. There is a NL colonoscopy 2017 Assessment & Plan (02/04/2021 11:51 AM JOB SPOTTER): Get lab and RUQ US and stool fit Hypercalcemia 08/01/2017 06/29/2021 Hyperlipidemia 07/19/2013 05/16/2019 Hypertension 07/19/2013 09/17/2018 Obesity 07/19/2013 06/19/2020 DM (diabetes mellitus) 08/27/200905/15 Encounters Date Type Department Care Team Description 06/20/2024 10:27 AM CDT - 06/20/2024 11:59 PM CDT Hospital Encounter [facility] [address] [place] [address] Need for hepatitis B screening test Discharge Disposition: Discharge to home or self care 06/20/2024 10:20 AM CDT Office Visit [address] [phone] Kris Liu MD Medicare annual wellness visit, subsequent (Primary Dx); Uncontrolled type 2 diabetes mellitus with hyperglycemia (HCC); Primary hypertension; Prostate cancer screening; Mixed hyperlipidemia; Major depressive disorder with single episode, in full remission; Need for hepatitis B screening test 06/20/2024 Results Follow-Up [address] [phone] Kris Liu MD POCT hemoglobin A1c, CBC with auto differential, Comprehensive metabolic panel, Additional followed-up results: 2 from Last 3 Months Immunizations Immunization Administration Dates Next Due COVID-19 mRNA (Soteira) 0.3 m L (30 mcg) vaccine (12 years and up) 12/19/2022 H1N1 All Forms 01/26/2009 Influenza Virus Vaccine Trivalent Mdv 12/22/2023 Influenza, Quad, Adjuvantate d, Intramuscular 12/10/2020,11/12/2019 Influenza, Quadrivalent, Hig h Dose, Preservative Free, Intrr 12/10/2022,12/10/2021 Influenza, Trivalent, Adjuva nted, Intramuscular 12/11/2018 Influenza, Trivalent, High D ose, Split, Preservative Free, Intramuscular 12/07/2017 Influenza, Unspecified 12/11/2021 Pertussis 05/05/2020 Pfizer SARS-CoV-2 Monovalent Vaccination (12+ Yrs) PURPLE 07/18/2021,12/25/2020,05/26/2020,05/05 Pfizer Sars-Cov-2 Bivalent V accination (12+ YRS) 01/11/2022 Pneumococcal Conjugate PCV 13 08/10/2021 Pneumococcal Conjugate Pcv20 01/10/2024 Pneumococcal Polysaccharide PPV23 05/16/2019 Sars-cov-2 Covid-19 Mrna, Bi valent, Original/omicron Ba.1 12/22/2023 Tdap 01/10/2024 ZOSTER Recombinant 11/29/2018,07/16/2018 Surgical History Surgery Date Site/Laterality Comments GA ARTHROPLASTY KNEE TIBIAL PLATEAU Knee Replacement - (Added by TW Conv) CATARACT EXTRACTION Cataract Surgery - (Added by TW Conv) KNEE SURGERY TOE SURGERY CATARACT EXTRACTION FRACTURE SURGERY VASECTOMY Medical History Medical History Date Comments Hypertension Anxiety Arthritis Diabetes mellitus (HCC) Sleep apnea, obstructive Obesity Covid-19 03/05/2021 Sx began 1 Test shows positive 03/05/21 Discussed MAb and will proceed Age weight and DM2 and heart all big risks for progression despite protective vaccination series Family History Medical History Relation Name Comments Alcohol abuse Brother Alexis Hypertension Brother Alexis Scoliosis Daughter Alcohol abuse Father Luis Miguel Family history of alcoholism - (Added by TW Conv) Cancer Mother Irina Kidney disease Mother Irina Relation Name Status Comments Brother Alexis Daughter Father Luis Miguel Mother Irina Social History Tobacco Use Types Packs/Day Years Used Date Smoking Tobacco: Never Smokeless Tobacco: Former Chew Quit: 03/06/2018 Tobacco Cessation:Counseling Given: Yes Alcohol Use Standard Drinks/Week Comments Yes 6 [...] on file Legal Sex Male 8:40 PM JOB SPOTTER Gender Identity Male 07/16/2020 9:35 AM CDT Sexual Orientation Straight 07/16/2020 9: 35 AM CDT Obstetrics History Last Filed Vital Signs Vital Sign Reading Time Taken Comments Blood Pressure 120/73 06/20/2024 10:08 AM CDT Pulse 70 06/20/2024 10:08 AM CDT Temperature 36.4 C (97.6 F) 11/13/2023 11:17 AM CDT Respiratory Rate 16 10/02/2018 4:24 PM CDT Oxygen Saturation 98% 06/20/2024 10:08 AM CDT Inhaled Oxygen Concentration - - Weight 112.5 kg (248 lb) 06/20/2024 10:08 AM CDT Height 177.8 cm (5' 10) 10/12/2023 9:29 AM CDT Body Mass Index 35.58 10/12/2023 9:29 AM CDT Plan of Treatment Health Maintenance Due Date Last Done Comments Albumin Creatinine Ratio, Urine 10/05/2022 2 Foot Exam 07/01/2023 06/30/2022, 06/04, 05/16/2019 eGFR 10/04/2023 10/03/2022 Dilated Eye Exam 12/15/2023 12/14/2022, 11/15/2018 Covid-19 Vaccine (9 2023- 5 season) 2024 12/22/2023, 12/22/2023, 12/19/2022, Additional history exists Hemoglobin A1C 12/20/2024 06/20/2024, 01/04, 10/12/2023, Additional history exists Depression Screening 06/20/2025 06/20/2024, 01/23/2024, 10/12/2023, Additional history exists Fall Risk Assessment 06/20/2025 06/20/2024, 06/27/2023, 06/30/2022, Additional history exists Lipid Panel 06/20/2025 06/20/2024, 06/05, 06/30/2022, Additional history exists Well Visit 65+ 06/20/2025 06/20/2024, 06/05, 06/30/2022, Additional history exists Colon Cancer Screening-Colonoscopy 05/15/2026 05/15/2016 DTaP/Tdap/Td Vaccine (2 - Td or Tdap) 01/09/2034 01/10/2024, 05/05/2020 Colon Cancer Screening-CT Colonography Discontinued 05/15/2016 Colon Cancer Screening-DNA Stool Discontinued 05/16/19 Colon Cancer Screening-FIT Discontinued 05/15/2016 Colon Cancer Screening-Sigmoidoscopy Discontinued 05/15/2016 Zoster Vaccine Completed 11/29/2018, 07/16/2018 Hepatitis C Screening Completed 06/29/2021 Influenza Vaccine Completed 12/22/2023, , 12/11/2021, Additional history exists Pneumococcal vaccine 65+ Completed 024, 08/10/2021, 05/16/2019 Hepatitis B Screening Completed 06/20/2024 Abdominal Aortic Aneurysm (A AA) Screen Discontinued Medical Devices Implanted Type Area Acetylene Cutter Device Identifier Shelf Expiration Date Model / Serial / Lot [employer] [id number] Evolution Mp 10mm Cruciate Substitute Knee Left 6+ Insert Tibial - [id number] Implanted:Qty: 1 on 09/21/2018 by Phil Bolton MD at [facility] Left: Knee [employer] [id number] 04/05/2023 [id number] / / [id number] [employer] [id number] Advance 38mm 10mm 3 Peg Onlay Component Patellar All Poly - [id number] Implanted:Qty: 1 on 09/21/2018 by Phil Bolton MD at [facility] Left: Knee [employer] [id number] 11/02/2025 [id number] / / [id number] [employer] [id number] Evolution Mp Keel Knee Left 6 Standard Baseplate Tibial Nonporous - [id number] Implanted:Qty: 1 on 09/21/2018 by Phil Bolton MD at [facility] Left: Knee [employer] [id number] 12/22/2025 [id number] / / [id number] [employer] [id number] Evolution Mp Primary Cruciate Retaining Cruciate Sustain Knee - [id number] Implanted:Qty: 1 on 09/21/2018 by Phil Bolton MD at [facility] Left: Knee [employer] [id number] 05/18/2026 [id number] / / [id number] [employer] [id number] Simplex P Radiopaque; Full Dose Cement Bone - [id number] Implanted:Qty: 2 on 09/21/2018 by Phil Bolton MD at [facility] Left: Knee [employer] 11/03/2020 [id number] / / [id number] Procedures Procedure Name Priority Date/Time Associated Diagnosis Comments HEPATITIS B SURFACE ANTIBODY (IMMUNE STATUS) Routine 06/20/2024 10:27 AM CDT Need for hepatitis B screening test HEPATITIS B SURFACE ANTIGEN Routine 06/20/2024 10:27 AM CDT Need for hepatitis B screening test HEPATITIS B CORE ANTIBODY, TOTAL Routine 06/20/2024 10:27 AM CDT Need for hepatitis B screening test LIPID PANEL Routine 06/20/2024 10:16 AM CDT Uncontrolled type 2 diabetes mellitus with hyperglycemia (HCC) Primary hypertension PSA SCREEN Routine 06/20/2024 10:16 AM CDT Uncontrolled type 2 diabetes mellitus with hyperglycemia (HCC) Prostate cancer screening COMPREHENSIVE METABOLIC PANEL Routine 06/20/2024 10:16 AM CDT Uncontrolled type 2 diabetes mellitus with hyperglycemia (HCC) Primary hypertension CBC WITH AUTO DIFFERENTIAL Routine 06/20/2024 10:16 AM CDT Uncontrolled type 2 diabetes mellitus with hyperglycemia (HCC) Primary hypertension POCT HEMOGLOBIN A1C Routine 06/20/2024 1 0:13 AM CDT Uncontrolled type 2 diabetes mellitus with hyperglycemia (HCC) EGFR Routine 10/03/2022 3:35 PM CDT Hypercalcemia ALBUMIN CREATININE RATIO, URINE Routine 10/05/2021 11:25 AM CDT Uncontrolled type 2 diabetes mellitus with hyperglycemia (HCC) HEPATITIS C ANTIBODY Routine 06/29/2021 11:05 AM CDT Encounter for hepatitis C screening test for low risk patient DIABETES FOOT EXAM Routine 06/19/2020 DIABETES EYE EXAM Routine 11/15/2018 COLONOSCOPY Routine 05/15/2016 from Last 3 Months or Most Recently Relevant to Health Maintenance Results * Hepatitis B core antibody, total Blood (06/20/2024 10:27 AM CDT) Hep B core IgG/IgM Nonreactive Nonreactive Blood 06/20/2024 10:2 7 AM CDT 06/20/2024 6:12 PM CDT us Kris Liu MD LAB MICROBIOLOGY - GEN ERAL ORDERABLES Final Result Performing Organization Address City/[facility]/ZIP Co de Phone Number [facility] [place] [address] * Hepatitis B surface antibody (immune status) Blood (06/20/2024 10:27 AM CDT) HBsAb (immune status) Nonreactive Comment:This result is consi stent with a lack of immunity to Hepatitis B Virus when used in the setting of routine screening. Current interpretative data was last revised on 21 Blood 06/20/2024 10:2 7 AM CDT 06/20/2024 6:12 PM CDT us Kris Liu MD LAB MICROBIOLOGY - GEN ERAL ORDERABLES Final Result [facility] [place] [address] * Hepatitis B Surface Antigen Blood (06/20/2024 10:27 AM CDT) HepBsAg Nonreactive Nonreactive Blood 06/20/2024 10:2 7 AM CDT 06/20/2024 6:12 PM CDT Kris Liu MD LAB MICROBIOLOGY - GEN ERAL ORDERABLES Final Result [facility] [place] [address] * PSA screen (06/20/2024 10:16 AM CDT) PSA, Total 3.8 0.0 - 4.0 ng/mL [facility] Blood 06/20/2024 10:1 6 AM CDT 06/20/2024 10:27 AM CDT Kris Liu MD LAB BLOOD ORDERABLES F inal Result [facility] [address] [place] [address] * CBC with auto differential (06/20/2024 10:16 AM CDT) WBC 5.0 3.5 - 10.0 K/uL [facility] RBC 4.88 4.60 - 6.20 M/uL [facility] Hemoglobin 15.0 13.9 - 17.7 g/dL [facility] Hematocrit 43.2 35.0 - 55.0 % [facility] MCV 88.4 75.0 - 100.0 fL [facility] MCH 30.70 25.00 - 35.00 pg [facility] MCHC 34.70 31.00 - 38.00 g/dL [facility] RDW 13.5 11.0 - 16.0 % [facility] Platelets 207 140 - 400 K/uL [facility] MPV 9.4 8.0 - 11.0 fL [facility] Granulocyte, Absolute 2.8 1.2 - 8.0 K/uL [facility] Lymphocyte, Absolute 1.6 0.5 - 5.0 K/uL [facility] Monocyte, Absolute 0.6 0.1 - 1.5 K/uL [facility] Granulocyte, Percentage 55.8 35.0 - 80.0 % [facility] Lymphocyte, Percentage 32.5 15.0 - 50.0 % [facility] Monocyte, Percentage 11.7 2.0 - 15.0 % [facility] Blood 06/20/2024 10:1 6 AM CDT 06/20/2024 10:27 AM CDT Kris Liu MD LAB BLOOD ORDERABLES F inal Result Performing Organization Address [facility] de Phone Number [facility] [address] [place] [address] * Lipid panel (06/20/2024 10:16 AM CDT) Triglyceride 94 0 - 150 mg/dL [facility] Cholesterol 127 0 - 200 mg/dL [facility] HDL 47 >35 mg/dL [facility] LDL-Calculated 62 mg/dL [facility] CHOL/HDL Risk Ratio 3 Ratio [facility] LDL/HDL Risk Ratio 1 Ratio [facility] Blood 06/20/2024 10:1 6 AM CDT 06/20/2024 10:27 AM CDT Kris Liu MD LAB BLOOD ORDERABLES F inal Result Performing Organization Address [facility] Co de Phone Number [facility] [address] [place] [address] * (ABNORMAL) Comprehensive metabolic panel (06/20/2024 10:16 AM CDT) Glucose 121 74 - 200 mg/dL [facility] BUN 17(L) 18 - 23 mg/dL [facility] Creatinine 1.0 0.7 - 1.3 mg/dL [facility] eGFR 76 mL/min/1.7 3m2 [facility] BUN/Creat Ratio 18 Ratio [facility] Bilirubin, Total 0.4 0.0 - 1.2 mg/dL [facility] AST (SGOT) 21 0 - 40 U/L [facility] ALT (SGPT) 21 10 - 50 U/L [facility] Alkaline phosphatase 84 40 - 129 U/L [facility] Calcium 10.4(H) 8.8 - 10.2 mg/dL [facility] Sodium 139 135 - 145 mEq/L [facility] Potassium 4.6 3.5 - 5.1 mEq/L [facility] Chloride 100 98 - 107 mEq/L [facility] CO2 28.4 22.0 - 32.0 mEq/L [facility] Anion Gap 11 3 - 12 mEq/L [facility] Total Protein 6.8 6.0 - 8.1 g/dL [facility] Albumin 4.5 3.5 - 5.2 g/dL [facility] Globulin 2.3 g/dL [facility] Albumin/Globulin 2.0 Ratio [facility] Blood 06/20/2024 10:1 6 AM CDT 06/20/2024 10:27 AM CDT Kris Liu MD LAB BLOOD ORDERABLES F inal Result Performing Organization Address City/State/[facility] Co de Phone Number [facility] [address] [place] [address] * POCT hemoglobin A1c (06/20/2024 10:13 AM CDT) Pathologist [facility] Hemoglobin A1C, POC 6.5 4.0 - 5.6 % Capillary blood 06/20/2024 1 0:13 AM CDT Kris Liu MD POINT OF CARE TEST ORD ERABLES Final Result * eGFR (10/03/2022 3:35 PM CDT) eGFR 92 mL/min/1. 73 m2 [facility] Comment: Interpretive Data Reference Interval Normal >/= 90 mL/min/1.73m2 Mildly decreased* 60 - 89 mL/min/1.73m2 Mildly to moderately decreased 45 - 59 mL/min/1.73m2 Moderately to severely decreased 30 - 44 mL/min/1.73m2 Severely decreased 15 - 29 mL/min/1.73m2 Kidney Failure < 15 mL/min/1.73m2 *Relative to young adult level Estimated glomerular filtration rate is determined by the 2020 CKD-EPI equation recommended by the National Kidney Foundation (A Unifying Approach to GFR Estimation: Recommendations of the NKF-ASK Task Force on Reassessing the Inclusion of Race in Diagnosing Kidney Disease, JASN 2020). The CKD-EPI equation should not be used for patients with unstable renal function and has not been validated in children and those over 70. Current interpretive data was last reviewed 2021. Blood 10/03/2022 3:35 PM CDT 10/03/2022 9:53 PM CDT Ivelisse Melvin MD LAB BLOOD ORDERABLES F inal Result Performing Organization Address City/[facility]/ZIP Co de Phone Number [facility] [address] [place] [address] * (ABNORMAL) Albumin Creatinine Ratio, Urine (10/05/2021 11:25 AM CDT) Creatinine, ur 99 20 - 320 mg/dL [facility] Microalbumin, ur 3.5 See Note: mg/dL [facility] Comment: Reference Range: Reference Range Not established Microalbumin/creat ratio 35(H) <30 mcg/mg creat [facility] Comment: The ADA defines abnormalities in albumin excretion as follows: Albuminuria Category Result (mcg/mg creatinine) Normal to Mildly increased <30 Moderately increased 30-299 Severely increased > OR = 300 The ADA recommends that at least two of three specimens collected within a 3-6 month period be abnormal before considering a patient to be within a diagnostic category. Urine 10/05/2021 11:2 5 AM CDT 10/05/2021 11:27 AM CDT Ivelisse Melvin MD LAB URINE ORDERABLES F inal Result Performing Organization Address City/[facility]/ZIP Co de Phone Number [facility] [address] [place] [address] * Hepatitis C antibody (06/29/2021 11:05 AM CDT) A-HCV II 0.07 Negative <0.90 [facility] Comment: <=0.9 negative 0.9-<1.0 borderline >= 1 positive Blood specimen (specimen) 06/29/2021 11:05 AM CDT 06/29/2021 12:48 PM CDT Ivelisse Melvin MD LAB MICROBIOLOGY - GEN ERAL ORDERABLES Final Result Performing Organization Address City/State/[facility] Co de Phone Number [facility] [address] [place] [address] * DIABETES FOOT EXAM (06/19/2020) Diabetic Foot Exam Normal Historical Provider HEALTH MAINTENANCE Final Result * DIABETES EYE EXAM (11/15/2018) Diabetic Eye Exam Normal Historical Provider HEALTH MAINTENANCE Final Result * COLONOSCOPY (05/15/2016) Colonoscopy Normal Historical Provider HEALTH MAINTENANCE Final Result from Last 3 Months or Most Recently Relevant to Health Maintenance Insurance [facility] MEDICARE AET[employer] MEDICARE UHC MEDICARE ADVANTAGE [facility] MEDICARE T MEDICARE T MEDICARE Advance Directives For more information, please contact: [phone] * Full Code (Latest Code Status on File) Date Activated Date Inactivated Comments 09/21/2018 9:01 PM 09/22/2018 4:41 PM Care Teams Ocean Export Agent Relationship Specialty Start Date End Date Kris Liu MD PCP - General Internal Medicine 10/31/22
--- OUTSIDE RECORDS SUMMARY | 2024-08-13 15:36 | XMS_ITS | Referral Summary ---
Author Organization [facility] Address [address] [place] [address] Care Team Providers Care Collection Card Clerk Name Role Phone Kris Liu MD Primary Care Provider Encounters Date Type Department Care Team Description 06/20/2024 10:27 AM CDT - 06/20/2024 11:59 PM CDT Hospital Encounter [facility] [address] [place] [address] Need for hepatitis B screening test Discharge Disposition: Discharge to home or self care 06/20/2024 Results Follow-Up [address] [phone] Kris Liu MD POCT hemoglobin A1c, CBC with auto differential, Comprehensive metabolic panel, Additional followed-up results: 2 06/20/2024 10:20 AM CDT Office Visit [address] [phone] Kris Liu MD Medicare annual wellness visit, subsequent (Primary Dx); Uncontrolled type 2 diabetes mellitus with hyperglycemia (HCC); Primary hypertension; Prostate cancer screening; Mixed hyperlipidemia; Major depressive disorder with single episode, in full remission; Need for hepatitis B screening test from Last 3 Months Allergies No known active allergies Medications desonide [...] SUBCUTANEOUSLY ONE TIME PER WEEK 3 mL 06/21/19 25 Active insulin glargine (TOUJEO) 300 unit/mL (1.5 mL) pen for injectionIndicati ons:type 2 diabetes mellitus Inject 15 Units under the skin daily 4.5 mL 3 06/21/19 25 Active empagliflozin (Jardiance) 25 mg tablet Take 1 tablet (25 mg total) by mouth daily 90 tablet 3 06/21/19 25 Active metFORMIN XR (GLUCOPHAGE XR) 500 mg 24 hr tablet Take 2 tablets (1,000 mg total) by mouth daily with breakfast 180 tablet 06/21/19 25 Active PARoxetine (PAXIL) 30 mg tablet Take 1 tablet (30 mg total) by mouth every morning 90 tablet 06/21/19 25 Active simvastatin (ZOCOR) 40 mg tablet Take 1 tablet (40 mg total) by mouth nightly 90 tablet 06/21/19 25 Active amLODIPine-benaze priL (LOTREL 5-20) 5-20 mg per capsuleIndication s:Primary hypertension Take 1 capsule by mouth daily 90 capsule 3 06/22/19 25 Active Active Problems Problem Noted Date Diagnosed [...] series Assessment & Plan (03/05/2021 2: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 Gender Identity Male 07/16/2020 9:35 AM CDT Sexual Orientation Straight 07/16/2020 9: 35 AM CDT Last Filed Vital Signs Vital Sign Reading [...] 10/12/2023 9:29 AM CDT Plan of Treatment Not on file Medical Devices Implanted Type Area Electrical Instrument Repairer Device Identifier Shelf Expiration Date Model / Serial / Lot [employer] [id number] Evolution Mp 10mm Cruciate Substitute Knee Left 6+ Insert Tibial - [id number] Implanted:Qty: 1 on 09/21/2018 by Phil Bolton MD at [facility] Left: Knee [employer] [id number] 04/05/2023 [id number] / / [id number] [employer] [id number] 38mm 10mm 3 Peg Onlay Component Patellar All Poly - [id number] Implanted:Qty: 1 on 09/21/2018 by Phil Bolton MD at [facility] Left: Knee [employer] [id number] 11/02/2025 [id number] / / [id number] [employer] [id number] Evolution Mp Keel Knee Left 6 Standard Baseplate Tibial Nonporous - [id number] Implanted:Qty: 1 on 09/21/2018 by Phil Bolton MD at [facility] Left: Knee [employer] [id number] 12/22/2025 [id number] / / [id number] [employer] [id number] Evolution Mp Primary Cruciate Retaining Cruciate Sustain Knee - [id number] Implanted:Qty: 1 on 09/21/2018 by Phil Bolton MD at [facility] Left: Knee [employer] [id number] 05/18/2026 [id number] / / [id number] [employer] [id number] Simplex P Radiopaque; Full Dose Cement Bone - [id number] Implanted:Qty: 2 on 09/21/2018 by Phil Bolton MD at [facility] Left: Knee [employer] 11/03/2020 [id number] / / [id number] Procedures Procedure Name Priority Date/Time Associated Diagnosis [...] ERAL ORDERABLES Final Result Performing Organization Address City/State/[facility] Co de Phone Number [facility] [place] [place] [address] * Hepatitis B surface antibody (immune status) Blood (06/20/2024 10:27 AM CDT) Pathologist [facility] HBsAb (immune status) Nonreactive Comment:This result is consi stent with a lack of immunity to Hepatitis B Virus when used in the setting of routine screening. Current interpretative data was last revised on 21 Blood 06/20/2024 10:2 7 AM CDT 06/20/2024 6:12 PM CDT Kris Liu MD LAB MICROBIOLOGY - GEN ERAL ORDERABLES Final Result Performing Organization Address [facility] Co de Phone Number [facility] [place] [place] [address] * Hepatitis B Surface Antigen Blood (06/20/2024 10:27 AM CDT) Pathologist [facility] HepBsAg Nonreactive Nonreactive Blood 06/20/2024 10:2 7 AM CDT 06/20/2024 6:12 PM CDT Kris Liu MD LAB MICROBIOLOGY - GEN ERAL ORDERABLES Final Result [facility] [place] [address] * PSA screen (06/20/2024 10:16 AM CDT) PSA, Total 3.8 0.0 - 4.0 ng/mL [facility] Blood 06/20/2024 10:1 6 AM CDT 06/20/2024 10:27 AM CDT Kris Liu MD LAB BLOOD ORDERABLES F inal Result [facility] [address] [place] [address] * CBC with auto differential (06/20/2024 10:16 AM CDT) Pathologist [facility] WBC 5.0 3.5 - 10.0 K/uL [facility] RBC 4.88 4.60 - 6.20 M/uL [facility] Hemoglobin 15.0 13.9 - 17.7 g/dL [facility] Hematocrit 43.2 35.0 - 55.0 % [facility] MCV 88.4 75.0 - 100.0 fL [facility] MCH 30.70 25.00 - 35.00 pg [facility] MCHC 34.70 31.00 - 38.00 g/dL [facility] RDW 13.5 11.0 - 16.0 % [facility] Platelets 207 140 - 400 K/uL [facility] MPV 9.4 8.0 - 11.0 fL [facility] Granulocyte, Absolute 2.8 1.2 - 8.0 K/uL [facility] Lymphocyte, Absolute 1.6 0.5 - 5.0 K/uL [facility] Monocyte, Absolute 0.6 0.1 - 1.5 K/uL [facility] Granulocyte, Percentage 55.8 35.0 - 80.0 % [facility] Lymphocyte, Percentage 32.5 15.0 - 50.0 % [facility] Monocyte, Percentage 11.7 2.0 - 15.0 % [facility] Blood 06/20/2024 10:1 6 AM CDT 06/20/2024 10:27 AM CDT Kris Liu MD LAB BLOOD ORDERABLES F inal Result Performing Organization Address [facility] Co de Phone Number [facility] [address] [place] [address] * Lipid panel (06/20/2024 10:16 AM CDT) Triglyceride 94 0 - 150 mg/dL [facility] Cholesterol 127 0 - 200 mg/dL [facility] HDL 47 >35 mg/dL [facility] LDL-Calculated 62 mg/dL [facility] CHOL/HDL Risk Ratio 3 Ratio [facility] LDL/HDL Risk Ratio 1 Ratio [facility] Blood 06/20/2024 10:1 6 AM CDT 06/20/2024 10:27 AM CDT Kris Liu MD LAB BLOOD ORDERABLES F inal Result Performing Organization Address [facility] Co de Phone Number [facility] [address] [place] [address] * (ABNORMAL) Comprehensive metabolic panel (06/20/2024 10:16 AM CDT) Glucose 121 74 - 200 mg/dL [facility] BUN 17(L) 18 - 23 mg/dL [facility] Creatinine 1.0 0.7 - 1.3 mg/dL [facility] eGFR 76 mL/min/1.7 3m2 [facility] BUN/Creat Ratio 18 Ratio [facility] Bilirubin, Total 0.4 0.0 - 1.2 mg/dL [facility] AST (SGOT) 21 0 - 40 U/L [facility] ALT (SGPT) 21 10 - 50 U/L [facility] Alkaline phosphatase 84 40 - 129 U/L [facility] Calcium 10.4(H) 8.8 - 10.2 mg/dL [facility] Sodium 139 135 - 145 mEq/L [facility] Potassium 4.6 3.5 - 5.1 mEq/L [facility] Chloride 100 98 - 107 mEq/L [facility] CO2 28.4 22.0 - 32.0 mEq/L [facility] Anion Gap 11 3 - 12 mEq/L [facility] Total Protein 6.8 6.0 - 8.1 g/dL [facility] Albumin 4.5 3.5 - 5.2 g/dL [facility] Globulin 2.3 g/dL [facility] Albumin/Globulin 2.0 Ratio [facility] Blood 06/20/2024 10:1 6 AM CDT 06/20/2024 10:27 AM CDT Kris Liu MD LAB BLOOD ORDERABLES F inal Result [facility] [address] [place] [address] * POCT hemoglobin A1c (06/20/2024 10:13 AM CDT) Hemoglobin A1C, POC 6.5 4.0 - 5.6 [...] of Race in Diagnosing Kidney Disease, JASN 202). The CKD-EPI equation should not be used for patients with unstable renal function and has not been validated in children and those over 70. Current interpretive data was last reviewed 2021. Blood 10/03/2022 3:35 PM CDT 10/03/2022 9:53 PM CDT Ivelisse Melvin MD LAB BLOOD ORDERABLES F inal Result [facility] [address] [place] [address] * (ABNORMAL) Albumin Creatinine Ratio, Urine (10/05/2021 [...] ORDERABLES F inal Result Performing Organization Address City/[facility] Co de Phone Number [facility] [address] [place] [address] * Hepatitis C antibody (06/29/2021 11:05 AM CDT) A-HCV II 0.07 Negative <0.90 [facility] Comment: <=0.9 negative 0.9-<1.0 borderline >= 1 positive Blood specimen (specimen) 06/29/2021 11:05 AM CDT 06/29/2021 12:48 PM CDT Ivelisse Melvin MD LAB MICROBIOLOGY - GEN ERAL ORDERABLES Final Result [facility] [address] [place] [address] * DIABETES FOOT EXAM (06/19/2020) Diabetic Foot Exam Normal Historical Provider HEALTH MAINTENANCE Final Result * DIABETES EYE EXAM (11/15/2018) Diabetic Eye Exam Normal Historical Provider HEALTH MAINTENANCE Final Result * COLONOSCOPY (05/15/2016) Colonoscopy Normal Historical Provider HEALTH MAINTENANCE Final Result from Last 3 Months or Most Recently Relevant to Health Maintenance Insurance [facility] MED[facility] T MEDICARE UHC MEDICARE ADVANTAGE [facility] Advance Directives For more information, please contact: [phone] * Full Code (Latest Code Status on File) Date Activated Date Inactivated Comments 09/21/2018 9:01 PM 09/22/2018 4:41 PM Care Teams Collection Card Clerk Relationship Specialty Start Date End Date Kris Liu MD PCP - General Internal Medicine 10/31/22
[2024-08-13 15:54] VITALS: RESP 16; O2SAT 95
[2024-08-13] MEDS: HYDROcodone/acetaminophen (*CRX) 5-325 MG TABLET 1 TAB PO (17:24)
[2024-08-13] MEDS: SIMVASTATIN 10 MG TABLET 40 MG PO (17:25)
[2024-08-13] MEDS: dexAMETHasone 2 MG TABLET PO (17:25)
[2024-08-13] MEDS: GABAPENTIN 100 MG CAPSULE PO (17:25)
[2024-08-13] MEDS: CYCLOBENZAPRINE HCL 10 MG TABLET PO (20:40)
[2024-08-13] MEDS: INSULIN GLARGINE (*BKC) 1,000 UNITS/10 ML VIAL 16 UNITS SUB-Q (20:42)
[2024-08-13 20:45] LABS: Glucose Point of Care 191 mg/dl (65-105)
[2024-08-13 20:45] LABS: Glucose Point of Care 126 mg/dl (65-105)
[2024-08-14] VITALS: BP 132/89; PULSE 85; RESP 16; TEMP 36.4; O2SAT 94
--- OUTSIDE RECORDS SUMMARY | 2024-08-14 07:12 | XMS_ITS | Clinical Summary ---
Author Organization [facility] Address [address] [place] [address] Care Team Providers Care Package Delivery Driver Name Role Phone Unavailable Primary Care Provider Unavailabl e Source Comments [facility],non-owned Affiliates and Associated Physician Practices is amultiple site organization consisting of ambulatory clinics and hospital sitesin [place], [place], [place] and [place]. This disclosure is being madepursuant to the Care Everywhere program and may not contain all information available regarding this patient. 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
--- OUTSIDE RECORDS SUMMARY | 2024-08-14 07:12 | XMS_ITS | Encounter Summary ---
Author Organization 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
--- OUTSIDE RECORDS SUMMARY | 2024-08-14 07:13 | XMS_ITS | Clinical Summary ---
Author Organization [facility] Address [address] [place] [address] Care Team Providers Care Financial Services Technician Name Role Phone Kris Liu MD Primary [...] series Assessment & Plan (03/05/2021 2:42 PM IRON BENDER): Proceed w/ MAb Medicare annual wellness visit, [...] (06/27/2018): Added automatically from request for surgery [id number] Peyronie's disease 02/05/2018 Overview (02/05/2018): Discussed 02/2018, [...] 2017 Assessment & Plan (02/04/2021 11:51 AM IRON BENDER): Get lab and RUQ US and stool fit Hypercalcemia 08/01/2017 06/29/2021 Hyperlipidemia 07/19/2013 05/16/2019 Hypertension 07/19/2013 09/17/2018 Obesity 07/19/2013 06/19/2020 DM (diabetes mellitus) 08/27/200905/15 Encounters Date Type Department Care Team Description 06/20/2024 10:27 AM CDT - 06/20/2024 11:59 PM CDT Hospital Encounter [facility] [address] [place] [address] Need for hepatitis B screening test Discharge Disposition: Discharge to home or self care 06/20/2024 10:20 AM CDT Office Visit [address] [phone] Kris Liu MD Medicare annual wellness visit, subsequent (Primary Dx); Uncontrolled type 2 diabetes mellitus with hyperglycemia (HCC); Primary hypertension; Prostate cancer screening; Mixed hyperlipidemia; Major depressive disorder with single episode, in full remission; Need for hepatitis B screening test 06/20/2024 Results Follow-Up [address] [address] Kris Liu MD POCT hemoglobin A1c, CBC with auto differential, Comprehensive metabolic panel, Additional followed-up results: 2 from Last 3 Months Immunizations Immunization Administration Dates Next Due COVID-19 mRNA (i-design Multimedia) 0.3 m L (30 mcg) vaccine (12 [...] 11/29/2018,07/16/2018 Surgical History Surgery Date Site/Laterality Comments [place] ARTHROPLASTY KNEE TIBIAL PLATEAU Knee Replacement - [...] on file Legal Sex Male 8:40 PM IRON BENDER Gender Identity Male 07/16/2020 9:35 AM CDT [...] Screen Discontinued Medical Devices Implanted Type Area Asset Protection Officer Device Identifier Shelf Expiration Date Model / Serial / Lot [employer] [id number] Evolution Mp 10mm Cruciate Substitute Knee Left 6+ Insert Tibial - [id number] Implanted:Qty: 1 on 09/21/2018 by Phil Bolton MD at [facility] Left: Knee [employer] [id number] 04/05/2023 [id number] / / [id number] [employer] [id number] Advance 38mm 10mm 3 Peg Onlay Component Patellar All Poly - [id number] Implanted:Qty: 1 on 09/21/2018 by Phil Bolton MD at [facility] Left: Knee [employer] [id number] 11/02/2025 [id number] / / [id number] [employer] [id number] Evolution Mp Keel Knee Left 6 Standard Baseplate Tibial Nonporous - [id number] Implanted:Qty: 1 on 09/21/2018 by Phil Bolton MD at [facility] Left: Knee [employer] [id number] 12/22/2025 [id number] / / [id number] [employer] [id number] Evolution Mp Primary Cruciate Retaining Cruciate Sustain Knee - [id number] Implanted:Qty: 1 on 09/21/2018 by Phil Bolton MD at [facility] Left: Knee [employer] [id number] 05/18/2026 [id number] / / [id number] [employer] [id number] Simplex P Radiopaque; Full Dose Cement Bone - [id number] Implanted:Qty: 2 on 09/21/2018 by Phil Bolton MD at [facility] Left: Knee [employer] 11/03/2020 [id number] / / [id number] Procedures Procedure Name Priority Date/Time Associated Diagnosis [...] ERAL ORDERABLES Final Result Performing Organization Address City/[facility]/ZIP Co de Phone Number [facility] Department of [employer] [place] [address] * Hepatitis B surface antibody (immune status) [...] MICROBIOLOGY - GEN ERAL ORDERABLES Final Result [facility] [place] [address] * Hepatitis B Surface Antigen Blood (06/20/2024 10:27 AM CDT) HepBsAg Nonreactive Nonreactive Blood 06/20/2024 10:2 7 AM CDT 06/20/2024 6:12 PM CDT Kris Liu MD LAB MICROBIOLOGY - GEN ERAL ORDERABLES Final Result [facility] [place] [address] * PSA screen (06/20/2024 10:16 AM CDT) PSA, Total 3.8 0.0 - 4.0 ng/mL [facility] Blood 06/20/2024 10:1 6 AM CDT 06/20/2024 10:27 AM CDT Kris Liu MD LAB BLOOD ORDERABLES F inal Result [facility] [address] [place] [address] * CBC with auto differential (06/20/2024 10:16 AM CDT) WBC 5.0 3.5 - 10.0 K/uL [facility] RBC 4.88 4.60 - 6.20 M/uL [facility] Hemoglobin 15.0 13.9 - 17.7 g/dL [facility] Hematocrit 43.2 35.0 - 55.0 % [facility] MCV 88.4 75.0 - 100.0 fL [facility] MCH 30.70 25.00 - 35.00 pg [facility] MCHC 34.70 31.00 - 38.00 g/dL [facility] RDW 13.5 11.0 - 16.0 % [facility] Platelets 207 140 - 400 K/uL [facility] MPV 9.4 8.0 - 11.0 fL [facility] Granulocyte, Absolute 2.8 1.2 - 8.0 K/uL [facility] Lymphocyte, Absolute 1.6 0.5 - 5.0 K/uL [facility] Monocyte, Absolute 0.6 0.1 - 1.5 K/uL [facility] Granulocyte, Percentage 55.8 35.0 - 80.0 % [facility] Lymphocyte, Percentage 32.5 15.0 - 50.0 % [facility] Monocyte, Percentage 11.7 2.0 - 15.0 % [facility] Blood 06/20/2024 10:1 6 AM CDT 06/20/2024 10:27 AM CDT Kris Liu MD LAB BLOOD ORDERABLES F inal Result Performing Organization Address [facility] de Phone Number [facility] [address] [place] [address] * Lipid panel (06/20/2024 10:16 AM CDT) Triglyceride 94 0 - 150 mg/dL [facility] Cholesterol 127 0 - 200 mg/dL [facility] HDL 47 >35 mg/dL [facility] LDL-Calculated 62 mg/dL [facility] CHOL/HDL Risk Ratio 3 Ratio [facility] LDL/HDL Risk Ratio 1 Ratio [facility] Blood 06/20/2024 10:1 6 AM CDT 06/20/2024 10:27 AM CDT Kris Liu MD LAB BLOOD ORDERABLES F inal Result Performing Organization Address [facility] Co de Phone Number [facility] [address] [place] [address] * (ABNORMAL) Comprehensive metabolic panel (06/20/2024 10:16 AM CDT) Glucose 121 74 - 200 mg/dL [facility] BUN 17(L) 18 - 23 mg/dL [facility] Creatinine 1.0 0.7 - 1.3 mg/dL [facility] eGFR 76 mL/min/1.7 3m2 [facility] BUN/Creat Ratio 18 Ratio [facility] Bilirubin, Total 0.4 0.0 - 1.2 mg/dL [facility] AST (SGOT) 21 0 - 40 U/L [facility] ALT (SGPT) 21 10 - 50 U/L [facility] Alkaline phosphatase 84 40 - 129 U/L [facility] Calcium 10.4(H) 8.8 - 10.2 mg/dL [facility] Sodium 139 135 - 145 mEq/L [facility] Potassium 4.6 3.5 - 5.1 mEq/L [facility] Chloride 100 98 - 107 mEq/L [facility] CO2 28.4 22.0 - 32.0 mEq/L [facility] Anion Gap 11 3 - 12 mEq/L [facility] Total Protein 6.8 6.0 - 8.1 g/dL [facility] Albumin 4.5 3.5 - 5.2 g/dL [facility] Globulin 2.3 g/dL [facility] Albumin/Globulin 2.0 Ratio [facility] Blood 06/20/2024 10:1 6 AM CDT 06/20/2024 10:27 AM CDT Kris Liu MD LAB BLOOD ORDERABLES F inal Result Performing Organization Address City/State/[facility] Co de Phone Number [facility] [address] [place] [address] * POCT hemoglobin A1c (06/20/2024 10:13 AM CDT) Pathologist [facility] Hemoglobin A1C, POC 6.5 4.0 - 5.6 [...] ORDERABLES F inal Result Performing Organization Address City/[facility]/ZIP Co de Phone Number [facility] [address] [address] Department [place] [address] * (ABNORMAL) Albumin Creatinine Ratio, Urine (10/05/2021 [...] ORDERABLES F inal Result Performing Organization Address City/[facility]/ZIP Co de Phone Number [facility] [address] [place] [address] * Hepatitis C antibody (06/29/2021 11:05 AM CDT) A-HCV II 0.07 Negative <0.90 [facility] Comment: <=0.9 negative 0.9-<1.0 borderline >= 1 positive Blood specimen (specimen) 06/29/2021 11:05 AM CDT 06/29/2021 12:48 PM CDT Ivelisse Melvin MD LAB MICROBIOLOGY - GEN ERAL ORDERABLES Final Result Performing Organization Address City/State/[facility] Co de Phone Number [facility] [address] [place] [address] * DIABETES FOOT EXAM (06/19/2020) Diabetic Foot Exam Normal Historical Provider HEALTH MAINTENANCE Final Result * DIABETES EYE EXAM (11/15/2018) Diabetic Eye Exam Normal Historical Provider HEALTH MAINTENANCE Final Result * COLONOSCOPY (05/15/2016) Colonoscopy Normal Historical Provider HEALTH MAINTENANCE Final Result from Last 3 Months or Most Recently Relevant to Health Maintenance Insurance [facility] MEDICARE AETNA MEDICARE UHC MEDICARE ADVANTAGE [facility] MEDICARE T MEDICARE T MEDICARE Advance Directives For more information, please contact: [phone] * Full Code (Latest Code Status on File) Date Activated Date Inactivated Comments 09/21/2018 9:01 PM 09/22/2018 4:41 PM Care Teams Financial Services Technician Relationship Specialty Start Date End Date Kris Liu MD PCP - General Internal Medicine 10/31/22
--- OUTSIDE RECORDS SUMMARY | 2024-08-14 07:13 | XMS_ITS | Referral Summary ---
Author Organization [facility] Address [address] [place] [address] Care Team Providers Care Registered Dental Assistant Rda Name Role Phone Kris Liu MD Primary Care Provider Encounters Date Type Department Care Team Description 06/20/2024 10:27 AM CDT - 06/20/2024 11:59 PM CDT Hospital Encounter [facility] [address] [place] [address] Need for hepatitis B screening test Discharge Disposition: Discharge to home or self care 06/20/2024 Results Follow-Up [address] [phone] Kris Liu MD POCT hemoglobin A1c, CBC with auto differential, Comprehensive metabolic panel, Additional followed-up results: 2 06/20/2024 10:20 AM CDT Office Visit [address] [phone] Kris Liu MD Medicare annual wellness visit, [...] series Assessment & Plan (03/05/2021 2:42 PM 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.] on file Legal Sex Male 8:40 PM COFFEE ROASTER Gender Identity Male 07/16/2020 9:35 AM CDT [...] on file Medical Devices Implanted Type Area Operations Intelligence Superintendent Device Identifier Shelf Expiration Date Model / Serial / Lot [employer] [id number] Evolution Mp 10mm Cruciate Substitute Knee Left 6+ Insert Tibial - [id number] Implanted:Qty: 1 on 09/21/2018 by Phil Bolton MD at [facility] Left: Knee [employer] [id number] 04/05/2023 [id number] / / [id number] [employer] [id number] 38mm 10mm 3 Peg Onlay Component Patellar All Poly - [id number] Implanted:Qty: 1 on 09/21/2018 by Phil Bolton MD at [facility] Left: Knee [employer] [id number] 11/02/2025 [id number] / / [id number] [employer] [id number] Evolution Mp Keel Knee Left 6 Standard Baseplate Tibial Nonporous - [id number] Implanted:Qty: 1 on 09/21/2018 by Phil Bolton MD at [facility] Left: Knee [employer] [id number] 12/22/2025 [id number] / / [id number] [employer] [id number] Evolution Mp Primary Cruciate Retaining Cruciate Sustain Knee - [id number] Implanted:Qty: 1 on 09/21/2018 by Phil Bolton MD at [facility] Left: Knee [employer] [id number] 05/18/2026 [id number] / / [id number] [employer] [id number] Simplex P Radiopaque; Full Dose Cement Bone - [id number] Implanted:Qty: 2 on 09/21/2018 by Phil Bolton MD at [facility] Left: Knee [employer] 11/03/2020 [id number] / / [id number] Procedures Procedure Name Priority Date/Time Associated Diagnosis [...] ERAL ORDERABLES Final Result Performing Organization Address City/State/[facility] Co de Phone Number [facility] [place] [address] * Hepatitis B surface antibody (immune status) Blood (06/20/2024 10:27 AM CDT) Pathologist [facility] HBsAb (immune status) Nonreactive Comment:This result is consi stent with a lack of immunity to Hepatitis B Virus when used in the setting of routine screening. Current interpretative data was last revised on 21 Blood 06/20/2024 10:2 7 AM CDT 06/20/2024 6:12 PM CDT Kris Liu MD LAB MICROBIOLOGY - GEN ERAL ORDERABLES Final Result Performing Organization Address [facility] Co de Phone Number [facility] [place] [address] * Hepatitis B Surface Antigen Blood (06/20/2024 10:27 AM CDT) Pathologist [facility] HepBsAg Nonreactive Nonreactive Blood 06/20/2024 10:2 7 AM CDT 06/20/2024 6:12 PM CDT Kris Liu MD LAB MICROBIOLOGY - GEN ERAL ORDERABLES Final Result [facility] [place] [address] * PSA screen (06/20/2024 10:16 AM CDT) PSA, Total 3.8 0.0 - 4.0 ng/mL [facility] Blood 06/20/2024 10:1 6 AM CDT 06/20/2024 10:27 AM CDT Kris Liu MD LAB BLOOD ORDERABLES F inal Result [facility] [address] [place] [address] * CBC with auto differential (06/20/2024 10:16 AM CDT) Pathologist [facility] WBC 5.0 3.5 - 10.0 K/uL [facility] RBC 4.88 4.60 - 6.20 M/uL [facility] Hemoglobin 15.0 13.9 - 17.7 g/dL [facility] Hematocrit 43.2 35.0 - 55.0 % [facility] MCV 88.4 75.0 - 100.0 fL [facility] MCH 30.70 25.00 - 35.00 pg [facility] MCHC 34.70 31.00 - 38.00 g/dL [facility] RDW 13.5 11.0 - 16.0 % [facility] Platelets 207 140 - 400 K/uL [facility] MPV 9.4 8.0 - 11.0 fL [facility] Granulocyte, Absolute 2.8 1.2 - 8.0 K/uL [facility] Lymphocyte, Absolute 1.6 0.5 - 5.0 K/uL [facility] Monocyte, Absolute 0.6 0.1 - 1.5 K/uL [facility] Granulocyte, Percentage 55.8 35.0 - 80.0 % [facility] Lymphocyte, Percentage 32.5 15.0 - 50.0 % [facility] Monocyte, Percentage 11.7 2.0 - 15.0 % [facility] Blood 06/20/2024 10:1 6 AM CDT 06/20/2024 10:27 AM CDT Kris Liu MD LAB BLOOD ORDERABLES F inal Result Performing Organization Address [facility] Co de Phone Number [facility] [address] [place] [address] * Lipid panel (06/20/2024 10:16 AM CDT) Triglyceride 94 0 - 150 mg/dL [facility] Cholesterol 127 0 - 200 mg/dL [facility] HDL 47 >35 mg/dL [facility] LDL-Calculated 62 mg/dL [facility] CHOL/HDL Risk Ratio 3 Ratio [facility] LDL/HDL Risk Ratio 1 Ratio [facility] Blood 06/20/2024 10:1 6 AM CDT 06/20/2024 10:27 AM CDT Kris Liu MD LAB BLOOD ORDERABLES F inal Result Performing Organization Address [facility] Co de Phone Number [facility] [address] [place] [address] * (ABNORMAL) Comprehensive metabolic panel (06/20/2024 10:16 AM CDT) Glucose 121 74 - 200 mg/dL [facility] BUN 17(L) 18 - 23 mg/dL [facility] Creatinine 1.0 0.7 - 1.3 mg/dL [facility] eGFR 76 mL/min/1.7 3m2 [facility] BUN/Creat Ratio 18 Ratio [facility] Bilirubin, Total 0.4 0.0 - 1.2 mg/dL [facility] AST (SGOT) 21 0 - 40 U/L [facility] ALT (SGPT) 21 10 - 50 U/L [facility] Alkaline phosphatase 84 40 - 129 U/L [facility] Calcium 10.4(H) 8.8 - 10.2 mg/dL [facility] Sodium 139 135 - 145 mEq/L [facility] Potassium 4.6 3.5 - 5.1 mEq/L [facility] Chloride 100 98 - 107 mEq/L [facility] CO2 28.4 22.0 - 32.0 mEq/L [facility] Anion Gap 11 3 - 12 mEq/L [facility] Total Protein 6.8 6.0 - 8.1 g/dL [facility] Albumin 4.5 3.5 - 5.2 g/dL [facility] Globulin 2.3 g/dL [facility] Albumin/Globulin 2.0 Ratio [facility] Blood 06/20/2024 10:1 6 AM CDT 06/20/2024 10:27 AM CDT Kris Liu MD LAB BLOOD ORDERABLES F inal Result [facility] [address] [place] [address] * POCT hemoglobin A1c (06/20/2024 10:13 AM [...] 3:35 PM CDT 10/03/2022 9:53 PM CDT vIelisse Melvin MD LAB BLOOD ORDERABLES F inal Result [facility] [address] [address] Department [place] [address] * (ABNORMAL) Albumin Creatinine Ratio, Urine (10/05/2021 [...] ORDERABLES F inal Result Performing Organization Address City/[facility] Co de Phone Number [facility] [address] [place] [address] * Hepatitis C antibody (06/29/2021 11:05 AM CDT) A-HCV II 0.07 Negative <0.90 [facility] Comment: <=0.9 negative 0.9-<1.0 borderline >= 1 positive Blood specimen (specimen) 06/29/2021 11:05 AM CDT 06/29/2021 12:48 PM CDT Ivelisse Melvin MD LAB MICROBIOLOGY - GEN ERAL ORDERABLES Final Result [facility] [address] [place] [address] * DIABETES FOOT EXAM (06/19/2020) Diabetic Foot [...] Advance Directives For more information, please contact: [phone] * Full Code (Latest Code Status on File) Date Activated Date Inactivated Comments 09/21/2018 9:01 PM 09/22/2018 4:41 PM Care Teams Registered Dental Assistant Rda Relationship Specialty Start Date End Date Kris Liu MD PCP - General Internal Medicine 10/31/22
[2024-08-14 08:00] VITALS: BP 145/78; PULSE 80; RESP 14; TEMP 36.8; O2SAT 96
[2024-08-14 08:07] LABS: Glucose Point of Care 122 mg/dl (65-105)
[2024-08-14] MEDS: LIDOCAINE 5% PATCH 1 PATCH TRANSDERM (09:16)
[2024-08-14] MEDS: PARoxetine 10 MG TABLET 30 MG PO (09:17)
[2024-08-14] MEDS: EMPAGLIFLOZIN 25 MG TABLET PO (09:17)
[2024-08-14] MEDS: amLODIPine BESYLATE 5 MG TABLET BY MOUTH (09:18)
[2024-08-14] MEDS: GABAPENTIN 100 MG CAPSULE PO ×3 (09:18→16:53)
[2024-08-14] MEDS: metFORMIN HCL XR 500 MG TAB.SR.24H PO (09:18)
[2024-08-14] MEDS: dexAMETHasone 2 MG TABLET PO ×3 (09:19→16:54)
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
[2024-08-14] MEDS: HYDROcodone/acetaminophen (*CRX) 5-325 MG TABLET 1 TAB PO ×2 (09:54→16:52)
[2024-08-14] MEDS: CYCLOBENZAPRINE HCL 10 MG TABLET PO ×2 (11:01→20:28)
[2024-08-14 11:40] LABS: Glucose Point of Care 190 mg/dl (65-105)
[2024-08-14] MEDS: [UNRECOGNIZED DRUG - OTHER] PO (13:20)
[2024-08-14] MEDS: VIBEGRON 75 MG PO (13:20)
[2024-08-14] MEDS: [UNRECOGNIZED DRUG - OTHER] SUB-Q (13:21)
[2024-08-14] MEDS: OZEMPIC SUB-Q (13:21)
[2024-08-14 16:00] VITALS: BP 106/68; PULSE 89; RESP 16; TEMP 36.3; O2SAT 97
[2024-08-14] MEDS: SIMVASTATIN 10 MG TABLET 40 MG PO (16:53)
[2024-08-14 16:57] LABS: Glucose Point of Care 198 mg/dl (65-105)
[2024-08-14] MEDS: INSULIN GLARGINE (*BKC) 1,000 UNITS/10 ML VIAL 16 UNITS SUB-Q (20:28)
[2024-08-14 20:33] LABS: Glucose Point of Care 195 mg/dl (65-105)
[2024-08-15] VITALS: BP 115/65; PULSE 80; RESP 16; TEMP 36.4; O2SAT 97
[2024-08-15 07:26] LABS: Glucose Point of Care 119 mg/dl (65-105)
[2024-08-15 07:45] VITALS: BP 123/67; PULSE 73; RESP 16; TEMP 36.1; O2SAT 98
[2024-08-15] MEDS: LIDOCAINE 5% PATCH 1 PATCH TRANSDERM (08:19)
[2024-08-15] MEDS: [UNRECOGNIZED DRUG - OTHER] PO (08:20)
[2024-08-15] MEDS: VIBEGRON 75 MG PO (08:20)
[2024-08-15] MEDS: PARoxetine 10 MG TABLET 30 MG PO (08:21)
[2024-08-15] MEDS: amLODIPine BESYLATE 5 MG TABLET BY MOUTH (08:27)
[2024-08-15] MEDS: GABAPENTIN 100 MG CAPSULE PO ×3 (08:27→17:13)
[2024-08-15] MEDS: HYDROcodone/acetaminophen (*CRX) 5-325 MG TABLET 1 TAB PO ×3 (08:27→21:09)
[2024-08-15] MEDS: metFORMIN HCL XR 500 MG TAB.SR.24H PO (08:28)
[2024-08-15] MEDS: dexAMETHasone 2 MG TABLET PO ×2 (08:28→12:14)
[2024-08-15] MEDS: lisinopriL 20 MG TABLET PO (08:29)
[2024-08-15] MEDS: EMPAGLIFLOZIN 25 MG TABLET PO (08:30)
[2024-08-15 11:42] LABS: Glucose Point of Care 135 mg/dl (65-105)
--- NOTE | 2024-08-15 11:47 | P.PNIM_ITS ---
Progress Note: A&P Assessment and Plan (1) Physical debility: Code(s): R53.81 - Other malaise Status: Acute Assessment and Plan: Patient admitted to swing bed for Skilled PT/OT Pain management related to fall with cervical and thoracic strain/ligamentous injury and fractured rib PT/OT Care coordination (2) Cervical spondylosis: Code(s): M47.812 - Spondylosis without myelopathy or radiculopathy, cervical region Status: Acute Assessment and Plan: Patient with moderate to severe cervical and thoracic spondylosis with left sided C6-C7 sprain/strain per clinical exam and MRI findings Previously cleared by Neurosurgery On deescalating dexamethasone as well as pain medications PT/OT working with patient towards recovery and return home Would avoid rigid C-Collar since this can weaken the strap muscle making it harder to improve function Continue PT/OT (3) Closed rib fracture: Code(s): S22.39XA - Fracture of one rib, unspecified side, initial encounter for closed fracture Status: Acute Assessment and Plan: CT chest showing possible right posterior 5th rib fracture. Pain controlled and no splinting. Encourage incentive spirometer use CT chest also showing nodular scarring RLL with recommendation for repeat CT in 3 months (4) Insulin dependent type 2 diabetes mellitus: Code(s): E11.9 - Type 2 diabetes mellitus without complications; Z79.4 - long-term (current) use of insulin Status: Acute Assessment and Plan: A1c 6.6. The patient's blood glucose was reviewed on 08/15 Glucose remains mildly elevated to 190's felt related to steroid taper. Continue AccuCheks covering with sliding scale. Hypoglycemia protocol available as needed. Continue current medications. Will hold off on medication adjustment since steroid dose is being decreased today. Repeat BMP to assess potassium (last potassium elevated at 5.6 on August 13) (5) Hypertension: Code(s): I10 - Essential (primary) hypertension Status: Acute Assessment and Plan: Patient's blood pressure was reviewed on 08/15 Blood pressure remains well controlled. Will continue to monitor (6) Depression with anxiety: Code(s): F41.8 - Other specified anxiety disorders Status: Acute Assessment and Plan: Mood stable. Continue to monitor. (7) Hyperlipidemia: Code(s): E78.5 - Hyperlipidemia, unspecified Status: Acute Assessment and Plan: LFTs within normal limits a few days prior to admission Continue statin therapy. (8) Overactive bladder: Code(s): N32.81 - Overactive bladder Status: Acute Assessment and Plan: Stable. Continue to monitor. Plan DVT Prophylaxis - SCDs Code status - Full Subjective Date/time seen: 08/15/24 11:47 Interval history: 74yo male with HTN, HLD, DM and depression admitted to Swing Bed for acute Skilled Rehab with PT/OT for recovery and return home after a significant fall with left sided neck/shoulder/scapula/thoracic injuries. Assuming care. Chart reviewed. Patient's left upper extremity pain is much better. No chest pain or shortness of breath. He is still having tingling to the left fingers but this has improved. No nausea or vomiting. Exam Narrative: AF 96.9 123/67 73 16 98% ra Gen - NARD Chest - CTA bilaterally, nml RR CV - RRR S1/S2 Abd - Soft, NT/ND, Positive BS Ext - No pedal edema Neuro -no weakness with fishing worker strength, biceps or triceps strength. Psych - Nml mood and affect Skin - Warm and dry Objective Data Vital Signs Vital Signs: Vital Signs - 24 hr 08/14/24 16:00 08/15/24 00:00 08/15/24 07:45 Temperature 97.3 F L 97.5 F L 96.9 F L Pulse Rate 89 80 73 Respiratory Rate 16 16 16 Blood Pressure 106/68 115/65 123/67 Pulse Oximetry 97 97 98 Oxygen Delivery Room Air Room Air Room Air Intake/Output Intake/Output: Intake & Output 08/12/24 08/13/24 08/14/24 08/15/24 23:59 23:59 23:59 23:59 Intake Total 610 2200 1190 Balance 610 2200 1190 Meds/Results Medications: Active Medications Generic Name Dose Route Start Last Admin Trade Name Freq PRN Reason Stop Dose Admin Acetaminophen 650 mg 08/13/24 15:54 Acetaminophen 325 Mg Tablet PO Q6H PRN Pain Rated 5 or Less or Fever Hydrocodone Bitart/Acetaminophen 1 tab 08/13/24 15:52 08/15/24 08:27 Hydrocodone/Acetaminophen (*Crx) 5-325 Mg Tablet PO 1 tab Q4H PRN Administration Pain Rated 6 or Greater Amlodipine Besylate 5 mg 08/14/24 09:00 08/15/24 08:27 Amlodipine Besylate 5 Mg Tablet BY MOUTH 5 mg DAILY BETHANIE Administration Cyclobenzaprine HCl 10 mg 08/13/24 15:52 08/14/24 20:28 Cyclobenzaprine Hcl 10 Mg Tablet PO 10 mg Q8H PRN Administration Muscle Spasm Dexamethasone 1 mg 08/15/24 21:00 Dexamethasone 2 Mg Tablet PO 08/17/24 13:01 TID BETHANIE Dexamethasone 2 mg 08/13/24 17:00 08/15/24 08:28 Dexamethasone 2 Mg Tablet PO 08/15/24 13:01 2 mg TID BETHANIE Administration Dexamethasone 1 mg 08/18/24 09:00 Dexamethasone 2 Mg Tablet PO 08/19/24 17:01 BID BETHANIE Dexamethasone 1 mg 08/20/24 08:00 Dexamethasone 2 Mg Tablet PO 08/21/24 08:01 DAILY@0800 BETHANIE Dextrose 12.5 gm 08/13/24 15:54 Dextrose 50% 25 Gm/50 Ml Syringe IV PUSH PRN PRN Hypoglycemia Protocol Empagliflozin 25 mg 08/14/24 09:00 08/15/24 08:30 Empagliflozin 25 Mg Tablet PO 25 mg DAILY BETHANIE Administration Gabapentin 100 mg 08/13/24 17:00 08/15/24 08:27 Gabapentin 100 Mg Capsule PO 100 mg TID BETHANIE Administration Glucagon 1 mg 08/13/24 15:54 Glucagon For Inj 1 Mg Vial IM PRN PRN Hypoglycemia Protocol Glucose 15 gm 08/13/24 15:54 Glucose Oral Gel 15 Gm Of Glucse In 37.5 Gm Tube PO PRN PRN Hypoglycemia Protocol Dextrose 1,000 mls @ 100 mls/hr 08/13/24 15:54 Dextrose 5% 1,000 Ml IVPB PRN PRN Hypoglycemia Protocol Insulin Glargine 16 units 08/13/24 21:00 08/14/24 20:28 Insulin Glargine (*Bkc) 1,000 Units/10 Ml Vial SUB-Q 16 units HS BETHANIE Administration Insulin Human Lispro 2 - 5 units 08/13/24 17:00 08/15/24 11:46 Insulin Human Lispro (*Bkc) 1,000 Units/10 Ml Vial SUB-Q Not Given TIDWM BETHANIE Protocol Lidocaine 1 patch 08/14/24 09:00 08/15/24 08:19 Lidocaine 5% Patch TRANSDERM 1 patch DAILY BETHANIE Administration Lisinopril 20 mg 08/14/24 09:00 08/15/24 08:29 Lisinopril 20 Mg Tablet PO 20 mg DAILY BETHANIE Administration Metformin HCl 500 mg 08/14/24 09:00 08/15/24 08:28 Metformin Hcl Xr 500 Mg Tab.Sr.24h PO 500 mg DAILY BETHANIE Administration Non-Formulary Medication 75 mg 08/14/24 11:00 08/15/24 08:20 Vibegron [Gemtesa] PO 09/13/24 10:59 75 mg DAILY BETHANIE Administration Nonformulary Drug 2 each 08/14/24 11:00 08/14/24 13:21 Ozempic (Semaglutide SUB-Q 09/13/24 10:59 2 each ) Injection 2mg Dose WEEKLY BETHANIE Administration (8mg/3ml Pen) Ondansetron HCl 4 mg 08/13/24 15:54 Ondansetron Hcl Odt 4 Mg Tablet PO Q6H PRN Nausea And Vomiting Paroxetine HCl 30 mg 08/14/24 09:00 08/15/24 08:21 Paroxetine 10 Mg Tablet PO 30 mg QAM BETHANIE Administration Simvastatin 40 mg 08/13/24 18:00 08/14/24 16:53 Simvastatin 10 Mg Tablet PO 40 mg QPM BETHANIE Administration Labs Labs: Laboratory Results - last 24 hr 08/14/24 08/14/24 08/15/24 16:57 20:27 07:19 POC Capillary Glucose 198 H 195 H 119 H 08/15/24 11:37 POC Capillary Glucose 135 H
[2024-08-15 16:00] VITALS: BP 154/62; PULSE 83; RESP 16; TEMP 36; O2SAT 99
[2024-08-15 16:24] LABS: Glucose Point of Care 189 mg/dl (65-105)
[2024-08-15] MEDS: SIMVASTATIN 10 MG TABLET 40 MG PO (17:13)
[2024-08-15 20:00] VITALS: PULSE 83; RESP 16; O2SAT 99
[2024-08-15] MEDS: dexAMETHasone 2 MG TABLET 1 MG PO (21:09)
[2024-08-15] MEDS: INSULIN GLARGINE (*BKC) 1,000 UNITS/10 ML VIAL 16 UNITS SUB-Q (21:11)
[2024-08-15 21:19] LABS: Glucose Point of Care 230 mg/dl (65-105)
--- NOTE | 2024-08-15 21:39 | PC.NURSE ---
Assisted patient with CPAP
[2024-08-16] VITALS: BP 114/62; PULSE 73; RESP 16; TEMP 36.4; O2SAT 95
[2024-08-16 05:44] LABS: Anion Gap 3 mmol/L (4-12); Blood Urea Nitrogen 24 mg/dL (9-20); Calcium 8.4 mg/dL (8.4-10.2); Carbon Dioxide 24 mmol/L (22-30); Chloride 103 mmol/L (98-107); Estimated CRCL calculation 100 ml/min; Estimated Glomerular Filt Rate > 60; Glucose 134 mg/dL (65-110); Osmolality Calculated 276 mOsm/kg (285-295); Potassium 4.3 mmol/L (3.4-5.0); Sodium 130 mmol/L (137-145)
[2024-08-16 07:31] LABS: Glucose Point of Care 121 mg/dl (65-105)
[2024-08-16 08:00] VITALS: BP 120/68; PULSE 64; RESP 16; TEMP 35.6; O2SAT 98
[2024-08-16] MEDS: LIDOCAINE 5% PATCH 1 PATCH TRANSDERM (08:14)
[2024-08-16] MEDS: VIBEGRON 75 MG PO (08:14)
[2024-08-16] MEDS: [UNRECOGNIZED DRUG - OTHER] PO (08:14)
[2024-08-16] MEDS: HYDROcodone/acetaminophen (*CRX) 5-325 MG TABLET 1 TAB PO ×2 (08:15→20:56)
[2024-08-16] MEDS: amLODIPine BESYLATE 5 MG TABLET BY MOUTH (08:16)
[2024-08-16] MEDS: PARoxetine 10 MG TABLET 30 MG PO (08:16)
[2024-08-16] MEDS: metFORMIN HCL XR 500 MG TAB.SR.24H PO (08:16)
[2024-08-16] MEDS: dexAMETHasone 2 MG TABLET 1 MG PO ×3 (08:17→17:12)
[2024-08-16] MEDS: GABAPENTIN 100 MG CAPSULE PO ×3 (08:18→17:12)
[2024-08-16] MEDS: lisinopriL 20 MG TABLET PO (08:18)
[2024-08-16] MEDS: EMPAGLIFLOZIN 25 MG TABLET PO (08:18)
--- NOTE | 2024-08-16 10:09 | PC.NURSE ---
Discontinued C-Collar order per Dr. Wesley.
[2024-08-16 11:38] LABS: Glucose Point of Care 148 mg/dl (65-105)
[2024-08-16] MEDS: ACETAMINOPHEN 325 MG TABLET 650 MG PO (12:23)
[2024-08-16 16:00] VITALS: BP 126/63; PULSE 82; RESP 16; TEMP 36.2; O2SAT 98
[2024-08-16 16:34] LABS: Glucose Point of Care 207 mg/dl (65-105)
[2024-08-16] MEDS: INSULIN HUMAN LISPRO (*BKC) 1,000 UNITS/10 ML VIAL SUB-Q (17:09)
[2024-08-16] MEDS: SIMVASTATIN 10 MG TABLET 40 MG PO (17:10)
[2024-08-16] MEDS: INSULIN GLARGINE (*BKC) 1,000 UNITS/10 ML VIAL 16 UNITS SUB-Q (20:56)
[2024-08-16] MEDS: CYCLOBENZAPRINE HCL 10 MG TABLET PO (20:56)
[2024-08-16 20:57] LABS: Glucose Point of Care 198 mg/dl (65-105)
[2024-08-17] VITALS: BP 119/66; PULSE 87; RESP 18; TEMP 36.9; O2SAT 95
[2024-08-17 08:00] VITALS: BP 129/67; PULSE 83; RESP 14; TEMP 36.4; O2SAT 98
[2024-08-17 08:01] LABS: Glucose Point of Care 126 mg/dl (65-105)
[2024-08-17] MEDS: HYDROcodone/acetaminophen (*CRX) 5-325 MG TABLET 1 TAB PO ×4 (08:19→21:06)
[2024-08-17] MEDS: CYCLOBENZAPRINE HCL 10 MG TABLET PO ×2 (08:20→16:54)
[2024-08-17] MEDS: lisinopriL 20 MG TABLET PO ×2 (09:09→09:10)
[2024-08-17] MEDS: dexAMETHasone 2 MG TABLET 1 MG PO ×2 (09:10→13:21)
[2024-08-17] MEDS: PARoxetine 10 MG TABLET 30 MG PO (09:10)
[2024-08-17] MEDS: metFORMIN HCL XR 500 MG TAB.SR.24H PO (09:10)
[2024-08-17] MEDS: GABAPENTIN 100 MG CAPSULE PO ×3 (09:11→16:54)
[2024-08-17] MEDS: EMPAGLIFLOZIN 25 MG TABLET PO (09:11)
[2024-08-17] MEDS: amLODIPine BESYLATE 5 MG TABLET BY MOUTH (09:11)
[2024-08-17] MEDS: [UNRECOGNIZED DRUG - OTHER] PO (09:13)
[2024-08-17] MEDS: VIBEGRON 75 MG PO (09:13)
[2024-08-17] MEDS: LIDOCAINE 5% PATCH 1 PATCH TRANSDERM (09:13)
[2024-08-17 12:05] LABS: Glucose Point of Care 135 mg/dl (65-105)
[2024-08-17 16:00] VITALS: BP 141/79; PULSE 96; RESP 16; TEMP 36.1; O2SAT 97
[2024-08-17] MEDS: SIMVASTATIN 10 MG TABLET 40 MG PO (16:54)
[2024-08-17 16:58] LABS: Glucose Point of Care 203 mg/dl (65-105)
[2024-08-17 21:18] LABS: Glucose Point of Care 189 mg/dl (65-105)
[2024-08-17] MEDS: INSULIN GLARGINE (*BKC) 1,000 UNITS/10 ML VIAL 16 UNITS SUB-Q (21:43)
[2024-08-18] VITALS: BP 114/61; PULSE 80; RESP 18; TEMP 36.4; O2SAT 94
[2024-08-18 08:00] VITALS: BP 118/64; PULSE 78; RESP 14; TEMP 36.6; O2SAT 98
[2024-08-18] MEDS: HYDROcodone/acetaminophen (*CRX) 5-325 MG TABLET 1 TAB PO ×4 (08:01→21:22)
[2024-08-18] MEDS: CYCLOBENZAPRINE HCL 10 MG TABLET PO ×2 (08:02→16:59)
[2024-08-18 08:09] LABS: Glucose Point of Care 128 mg/dl (65-105)
[2024-08-18] MEDS: [UNRECOGNIZED DRUG - OTHER] PO (09:26)
[2024-08-18] MEDS: LIDOCAINE 5% PATCH 1 PATCH TRANSDERM (09:26)
[2024-08-18] MEDS: VIBEGRON 75 MG PO (09:26)
[2024-08-18] MEDS: PARoxetine 10 MG TABLET 30 MG PO (09:27)
[2024-08-18] MEDS: lisinopriL 20 MG TABLET PO (09:27)
[2024-08-18] MEDS: dexAMETHasone 2 MG TABLET 1 MG PO ×2 (09:27→16:59)
[2024-08-18] MEDS: metFORMIN HCL XR 500 MG TAB.SR.24H PO (09:27)
[2024-08-18] MEDS: amLODIPine BESYLATE 5 MG TABLET BY MOUTH (09:28)
[2024-08-18] MEDS: EMPAGLIFLOZIN 25 MG TABLET PO (09:28)
[2024-08-18] MEDS: GABAPENTIN 100 MG CAPSULE PO ×3 (09:28→17:01)
[2024-08-18 11:58] LABS: Glucose Point of Care 119 mg/dl (65-105)
--- NOTE | 2024-08-18 14:40 | PC.NURSE ---
Pt had a full shower after therapy, he was helped by TRACY MILLAN. Pt tolerated well.
[2024-08-18 16:00] VITALS: BP 116/78; PULSE 82; RESP 18; TEMP 36.6; O2SAT 95
[2024-08-18] MEDS: SIMVASTATIN 10 MG TABLET 40 MG PO (17:00)
[2024-08-18 17:05] LABS: Glucose Point of Care 150 mg/dl (65-105)
[2024-08-18 21:26] LABS: Glucose Point of Care 200 mg/dl (65-105)
[2024-08-18] MEDS: INSULIN GLARGINE (*BKC) 1,000 UNITS/10 ML VIAL 16 UNITS SUB-Q (21:26)
[2024-08-19] VITALS: BP 120/67; PULSE 90; RESP 16; TEMP 36; O2SAT 94
[2024-08-19] MEDS: HYDROcodone/acetaminophen (*CRX) 5-325 MG TABLET 1 TAB PO ×5 (04:57→20:22)
[2024-08-19] MEDS: CYCLOBENZAPRINE HCL 10 MG TABLET PO ×3 (04:57→20:22)
[2024-08-19 07:51] LABS: Glucose Point of Care 133 mg/dl (65-105)
[2024-08-19 08:00] VITALS: BP 127/74; PULSE 89; RESP 14; TEMP 36.5; O2SAT 99
[2024-08-19] MEDS: LIDOCAINE 5% PATCH 1 PATCH TRANSDERM (08:59)
[2024-08-19] MEDS: PARoxetine 10 MG TABLET 30 MG PO (08:59)
[2024-08-19] MEDS: [UNRECOGNIZED DRUG - OTHER] PO (08:59)
[2024-08-19] MEDS: amLODIPine BESYLATE 5 MG TABLET BY MOUTH (08:59)
[2024-08-19] MEDS: VIBEGRON 75 MG PO (08:59)
[2024-08-19] MEDS: dexAMETHasone 2 MG TABLET 1 MG PO ×2 (09:00→17:07)
[2024-08-19] MEDS: EMPAGLIFLOZIN 25 MG TABLET PO (09:00)
[2024-08-19] MEDS: lisinopriL 20 MG TABLET PO (09:00)
[2024-08-19] MEDS: metFORMIN HCL XR 500 MG TAB.SR.24H PO (09:01)
[2024-08-19] MEDS: GABAPENTIN 100 MG CAPSULE PO ×3 (09:01→17:06)
[2024-08-19 11:49] LABS: Glucose Point of Care 147 mg/dl (65-105)
[2024-08-19 16:00] VITALS: BP 102/58; PULSE 90; RESP 18; TEMP 36.2; O2SAT 99
[2024-08-19 16:41] LABS: Glucose Point of Care 180 mg/dl (65-105)
[2024-08-19] MEDS: SIMVASTATIN 10 MG TABLET 40 MG PO (17:06)
[2024-08-19 20:00] VITALS: PULSE 90; RESP 18; O2SAT 99
[2024-08-19] MEDS: INSULIN GLARGINE (*BKC) 1,000 UNITS/10 ML VIAL 16 UNITS SUB-Q (20:23)
[2024-08-19 20:25] LABS: Glucose Point of Care 209 mg/dl (65-105)
[2024-08-20] VITALS: BP 101/56; PULSE 84; RESP 17; TEMP 36.6; O2SAT 95
[2024-08-20] MEDS: HYDROcodone/acetaminophen (*CRX) 5-325 MG TABLET 1 TAB PO ×3 (02:30→13:21)
[2024-08-20] MEDS: CYCLOBENZAPRINE HCL 10 MG TABLET PO (06:30)
[2024-08-20 07:35] VITALS: BP 101/60; PULSE 81; RESP 16; TEMP 35.9; O2SAT 98
[2024-08-20 07:52] LABS: Glucose Point of Care 112 mg/dl (65-105)
[2024-08-20 08:35] VITALS: PULSE 81; RESP 16; O2SAT 98
[2024-08-20 08:46] LABS: Anion Gap 2 mmol/L (4-12); Blood Urea Nitrogen 20 mg/dL (9-20); Calcium 8.8 mg/dL (8.4-10.2); Carbon Dioxide 32 mmol/L (22-30); Chloride 96 mmol/L (98-107); Estimated CRCL calculation 84 ml/min; Estimated Glomerular Filt Rate > 60; Glucose 148 mg/dL (65-110); Osmolality Calculated 275 mOsm/kg (285-295); Potassium 4.4 mmol/L (3.4-5.0); Sodium 130 mmol/L (137-145)
[2024-08-20] MEDS: GABAPENTIN 100 MG CAPSULE PO ×2 (09:24→13:21)
[2024-08-20] MEDS: lisinopriL 20 MG TABLET PO (09:24)
[2024-08-20] MEDS: dexAMETHasone 2 MG TABLET 1 MG PO (09:24)
[2024-08-20] MEDS: PARoxetine 10 MG TABLET 30 MG PO (09:24)
[2024-08-20] MEDS: metFORMIN HCL XR 500 MG TAB.SR.24H PO (09:24)
[2024-08-20] MEDS: EMPAGLIFLOZIN 25 MG TABLET PO (09:24)
[2024-08-20] MEDS: amLODIPine BESYLATE 5 MG TABLET BY MOUTH (09:24)
[2024-08-20] MEDS: [UNRECOGNIZED DRUG - OTHER] PO (09:25)
[2024-08-20] MEDS: VIBEGRON 75 MG PO (09:25)
--- NOTE | 2024-08-20 10:27 | PM.IMPN ---
Progress Note: A&P Assessment and Plan (1) Physical debility: Code(s): R53.81 - Other malaise Status: Acute Assessment and Plan: Patient admitted to swing bed for Skilled PT/OT Pain management related to fall with cervical and thoracic strain/ligamentous injury and fractured rib Continue PT/OT (2) Cervical spondylosis: Code(s): M47.812 - Spondylosis without myelopathy or radiculopathy, cervical region Status: Acute Assessment and Plan: Patient with moderate to severe cervical and thoracic spondylosis with left sided C6-C7 sprain/strain per clinical exam and MRI findings Previously cleared by Neurosurgery On deescalating dexamethasone as well as pain medications PT/OT working with patient towards recovery and return home Continue PT/OT (3) Closed rib fracture: Code(s): S22.39XA - Fracture of one rib, unspecified side, initial encounter for closed fracture Status: Acute Assessment and Plan: CT chest showing possible right posterior 5th rib fracture. Pain controlled and no splinting. Encourage incentive spirometer use CT chest also showing nodular scarring RLL with recommendation for repeat CT in 3 months (4) Insulin dependent type 2 diabetes mellitus: Code(s): E11.9 - Type 2 diabetes mellitus without complications; Z79.4 - correction (current) use of insulin Status: Acute Assessment and Plan: A1c 6.6. The patient's blood glucose was reviewed on 08/20 Glucose better controlled related to steroid taper. Continue AccuCheks covering with sliding scale. Hypoglycemia protocol available as needed. Continue current medications. (5) Hypertension: Code(s): I10 - Essential (primary) hypertension Status: Acute Assessment and Plan: Patient's blood pressure was reviewed on 08/20 Blood pressure remains well controlled. Will continue to monitor (6) Depression with anxiety: Code(s): F41.8 - Other specified anxiety disorders Status: Acute Assessment and Plan: Mood stable. Continue to monitor. (7) Hyperlipidemia: Code(s): E78.5 - Hyperlipidemia, unspecified Status: Acute Assessment and Plan: LFTs within normal limits recently Continue statin therapy. (8) Overactive bladder: Code(s): N32.81 - Overactive bladder Status: Acute Assessment and Plan: Stable. Continue to monitor. (9) Hyponatremia: Code(s): E87.1 - Hypo-osmolality and hyponatremia Status: Acute Assessment and Plan: Sodium was 130 on 08/15 and unchanged today. Could be related to fluid retention from steroids or from SSRI. Sodium has been low for the past 2 weeks but not necessarily chronic. Will check urine studies and fluid restrict water Plan DVT Prophylaxis - SCDs Code status - Full Subjective Date/time seen: 08/20/24 10:27 Interval history: 74yo male with HTN, HLD, DM and depression admitted to Swing Bed for acute Skilled Rehab with PT/OT for recovery and return home after a significant fall with left sided neck/shoulder/scapula/thoracic injuries. No change in left shoulder and back pain. Normal left shoulder ROM. Walking and balance are much better. No numbness or tingling in the left hand. no CPor SOB. no nausea or vomiting. Exam Narrative: AF 96.6 101/60 81 15 98% ra Gen - NARD Chest - CTA bilaterally, nml RR CV - RRR S1/S2 Abd - Soft, NT/ND, Positive BS Back - healing left upper back abrasion Ext - No pedal edema Neuro -normal rn lab strength left hand Psych - Nml mood and affect Skin - Warm and dry Objective Data Vital Signs Vital Signs: Vital Signs - 24 hr 08/19/24 16:00 08/19/24 20:00 08/20/24 00:00 Temperature 97.1 F L 97.9 F Pulse Rate 90 90 84 Respiratory Rate 18 18 17 Blood Pressure 102/58 L 101/56 L Pulse Oximetry 99 99 95 Oxygen Delivery Room Air Room Air Room Air 08/20/24 07:35 08/20/24 08:35 Temperature 96.6 F L Pulse Rate 81 81 Respiratory Rate 16 16 Blood Pressure 101/60 Pulse Oximetry 98 98 Oxygen Delivery Room Air Room Air Intake/Output Intake/Output: Intake & Output 08/17/24 08/18/24 08/19/24 08/20/24 23:59 23:59 23:59 23:59 Intake Total 2800 2940 2130 840 Output Total 900 2700 1950 1800 Balance 1900 240 180 -960 Meds/Results Medications: Active Medications Generic Name Dose Route Start Last Admin Trade Name Freq PRN Reason Stop Dose Admin Acetaminophen 650 mg 08/13/24 15:54 08/16/24 12:23 Acetaminophen 325 Mg Tablet PO 650 mg Q6H PRN Administration Pain Rated 5 or Less or Fever Hydrocodone Bitart/Acetaminophen 1 tab 08/13/24 15:52 08/20/24 06:30 Hydrocodone/Acetaminophen (*Crx) 5-325 Mg Tablet PO 1 tab Q4H PRN Administration Pain Rated 6 or Greater Amlodipine Besylate 5 mg 08/14/24 09:00 08/20/24 09:24 Amlodipine Besylate 5 Mg Tablet BY MOUTH 5 mg DAILY BETHANIE Administration Cyclobenzaprine HCl 10 mg 08/13/24 15:52 08/20/24 06:30 Cyclobenzaprine Hcl 10 Mg Tablet PO 10 mg Q8H PRN Administration Muscle Spasm Dexamethasone 1 mg 08/20/24 08:00 08/20/24 09:24 Dexamethasone 2 Mg Tablet PO 08/21/24 08:01 1 mg DAILY@0800 BETHANIE Administration Dextrose 12.5 gm 08/13/24 15:54 Dextrose 50% 25 Gm/50 Ml Syringe IV PUSH PRN PRN Hypoglycemia Protocol Empagliflozin 25 mg 08/14/24 09:00 08/20/24 09:24 Empagliflozin 25 Mg Tablet PO 25 mg DAILY BETHANIE Administration Gabapentin 100 mg 08/13/24 17:00 08/20/24 09:24 Gabapentin 100 Mg Capsule PO 100 mg TID BETHANIE Administration Glucagon 1 mg 08/13/24 15:54 Glucagon For Inj 1 Mg Vial IM PRN PRN Hypoglycemia Protocol Glucose 15 gm 08/13/24 15:54 Glucose Oral Gel 15 Gm Of Glucse In 37.5 Gm Tube PO PRN PRN Hypoglycemia Protocol Dextrose 1,000 mls @ 100 mls/hr 08/13/24 15:54 Dextrose 5% 1,000 Ml IVPB PRN PRN Hypoglycemia Protocol Insulin Glargine 16 units 08/13/24 21:00 08/19/24 20:23 Insulin Glargine (*Bkc) 1,000 Units/10 Ml Vial SUB-Q 16 units HS BETHANIE Administration Insulin Human Lispro 2 - 5 units 08/13/24 17:00 08/20/24 09:24 Insulin Human Lispro (*Bkc) 1,000 Units/10 Ml Vial SUB-Q Not Given TIDWM [facility] Protocol Lidocaine 1 patch 08/14/24 09:00 08/20/24 09:25 Lidocaine 5% Patch TRANSDERM Not Given DAILY [facility] Lisinopril 20 mg 08/14/24 09:00 08/20/24 09:24 Lisinopril 20 Mg Tablet PO 20 mg DAILY BETHANIE Administration Metformin HCl 500 mg 08/14/24 09:00 08/20/24 09:24 Metformin Hcl Xr 500 Mg Tab.Sr.24h PO 500 mg DAILY BETHANIE Administration Non-Formulary Medication 75 mg 08/14/24 11:00 08/20/24 09:25 Vibegron [Gemtesa] PO 09/13/24 10:59 75 mg DAILY BETHANIE Administration Nonformulary Drug 2 each 08/14/24 11:00 08/14/24 13:21 Ozempic (Semaglutide SUB-Q 09/13/24 10:59 2 each ) Injection 2mg Dose WEEKLY BETHANIE Administration (8mg/3ml Pen) Ondansetron HCl 4 mg 08/13/24 15:54 Ondansetron Hcl Odt 4 Mg Tablet PO Q6H PRN Nausea And Vomiting Paroxetine HCl 30 mg 08/14/24 09:00 08/20/24 09:24 Paroxetine 10 Mg Tablet PO 30 mg QAM BETHANIE Administration Simvastatin 40 mg 08/13/24 18:00 08/19/24 17:06 Simvastatin 10 Mg Tablet PO 40 mg QPM BETHANIE Administration Labs Labs: Laboratory Results - last 24 hr 08/19/24 08/19/24 08/19/24 11:44 16:35 20:20 Sodium Potassium Chloride Carbon Dioxide Anion Gap BUN Creatinine Estim Creat Clear Calc Estimated GFR Glucose POC Capillary Glucose 147 H 180 H 209 H Calculated Osmolality Calcium 08/20/24 08/20/24 07:49 08:26 Sodium 130 L Potassium 4.4 Chloride 96 L Carbon Dioxide 32 H Anion Gap 2 L BUN 20 Creatinine 0.79 Estim Creat Clear Calc 84 Estimated GFR > 60 Glucose 148 H POC Capillary Glucose 112 H Calculated Osmolality 275 L Calcium 8.8
--- NOTE | 2024-08-20 10:58 | PC.NURSE ---
Urine collected for urine creatinine and urine sodium. Patient notified of Fluid restriction due to low sodium.
[2024-08-20 11:12] LABS: Sodium Urine Random 50 meq/L
[2024-08-20 11:41] LABS: Glucose Point of Care 177 mg/dl (65-105)
--- NOTE | 2024-08-20 14:15 | P.DS_ITS ---
DS: Admitting Diagnosis Discharge Date 08/20/24 Admitting Diagnosis Debility DS: Discharge Diagnosis Discharge Diagnosis (1) Physical debility: Code(s): R53.81 - Other malaise Status: Acute (2) Cervical spondylosis: Code(s): M47.812 - Spondylosis without myelopathy or radiculopathy, cervical region Status: Acute (3) Closed rib fracture: Code(s): S22.39XA - Fracture of one rib, unspecified side, initial encounter for closed fracture Status: Acute (4) Insulin dependent type 2 diabetes mellitus: Code(s): E11.9 - Type 2 diabetes mellitus without complications; Z79.4 - residential (current) use of insulin Status: Acute (5) Hypertension: Code(s): I10 - Essential (primary) hypertension Status: Acute (6) Depression with anxiety: Code(s): F41.8 - Other specified anxiety disorders Status: Acute (7) Hyperlipidemia: Code(s): E78.5 - Hyperlipidemia, unspecified Status: Acute (8) Overactive bladder: Code(s): N32.81 - Overactive bladder Status: Acute (9) Hyponatremia: Code(s): E87.1 - Hypo-osmolality and hyponatremia Status: Acute (10) Lung nodule: Code(s): R91.1 - Solitary pulmonary nodule Status: Acute DS: Summary Hospital Course Reason for hospitalization: 74yo male with HTN, HLD, DM and depression admitted to Swing Bed for acute Skilled Rehab with PT/OT for recovery and return home after a significant fall with left sided neck/shoulder/scapula/thoracic injuries. Please see H&P for details. Hospital Course: Patient admitted to swing bed for skilled PT/OT. Patient with moderate to severe cervical and thoracic spondylosis with left sided C6-C7 sprain/strain per clinical exam and MRI findings. Previously cleared by Neurosurgery. CT chest showing possible right posterior 5th rib fracture and also showing nodular scarring RLL with recommendation for repeat CT in 3 months. He was treated with deescalating dexamethasone as well as pain medications. He worked with PT/OT. Pain controlled and no splinting. A1c 6.6. The patient's blood glucose was monitored with AccuCheks covering with sliding scale. Hypoglycemia protocol was available as needed. Sodium was 130 on 08/15 and unchanged on repeat. George was 50 with FENa <1. Could be related to fluid retention from steroids or from SSRI or from pain. Sodium has been low for the past 2 weeks but not necessarily chronic. Plan for fluid restriction and repeat sodium next week. Patient feels his pain is about the same but his balance and walking is much better. He wants to be released today. Norvasc held due to interaction with Simvastatin. He overall did well and was able to be discharged home on 08/20/24. Status at Discharge Cognitive/behavioral status at discharge: stable Time Spent with Patient Time attestation: Total time spent providing and/or coordinating discharge services: 35 minutes Time spent: Greater than 30 minutes Exam Narrative: AF 96.6 101/60 81 15 98% ra Gen - NARD Chest - CTA bilaterally, nml RR CV - RRR S1/S2 Abd - Soft, NT/ND, Positive BS Back - healing left upper back abrasion Ext - No pedal edema Neuro -normal clinical education coordinator strength left hand Psych - Nml mood and affect Skin - Warm and dry DS: Data Data Completed and Pending Labs on day of discharge: Labs from last 24 hours 08/20/24 08/20/24 08/20/24 11:40 10:57 08:26 Sodium 130 L Potassium 4.4 Chloride 96 L Carbon Dioxide 32 H Anion Gap 2 L BUN 20 Creatinine 0.79 Estim Creat Clear Calc 84 Estimated GFR > 60 Glucose 148 H POC Capillary Glucose 177 H Calculated Osmolality 275 L Calcium 8.8 Ur Random Sodium 50 Urine Creatinine 58.0 08/20/24 08/19/24 08/19/24 07:49 20:20 16:35 Sodium Potassium Chloride Carbon Dioxide Anion Gap BUN Creatinine Estim Creat Clear Calc Estimated GFR Glucose POC Capillary Glucose 112 H 209 H 180 H Calculated Osmolality Calcium Ur Random Sodium Urine Creatinine Discharge Plan Discharge Attending physician on discharge: Rober Wesley Discharging Clinician: Rober Wesley Anticipated Discharge Date/Time: 08/20/24 14:22 Patient Disposition: Home Activity: as tolerated Diet: diabetic Discharge Instructions: Please check glucose before meals and before bed. Record and bring into your doctor for review. Check blood pressure 1 to 2 times a day. Record and bring into your doctor for review. Call your doctor if your blood pressure is greater than 180/110. Please complete your steroids course even if you are starting to feel well. Take precautions to avoid falls. Rise slowly from a lying or sitting position. Pause before standing or walking. Contact your doctor or call 911 and come to the Emergency Room if you have any type of trauma, lightheadedness with standing or other worrisome symptoms. Avoid NSAIDs (ibuprofen, naproxen, Aleve). Tylenol is safe to take. Follow-up with your primary care provider in 1-2 weeks. Please call for appointment. You will need a repeat Chest CT in 3 months to follow a nodular area noted incidentally on your original CT chest Thank you for using [facility] for your health care needs. Patient Instructions: Antibiotic Form Patient Language: Nauruan Stand Alone Forms: General Discharge Information Follow-up/Referrals: Liu,Kris Guzman MD [Primary Care Provider] - Call for Appointment Discharge Medications: New dexamethasone 1 mg tablet 1 mg PO DAILY Qty: 1 0RF Continued lisinopril 20 mg tablet 20 mg PO DAILY Ozempic 2 mg/dose (8 mg/3 mL) pen injector 2 mg SUBCUT WEEKLY simvastatin 40 mg tablet 40 mg PO QPM paroxetine HCl 30 mg tablet 30 mg PO QAM metformin 500 mg tablet extended release 24 hr 500 mg PO DAILY Jardiance 25 mg tablet 25 mg PO DAILY insulin glargine U-300 conc [Toujeo SoloStar U-300 Insulin] 300 unit/mL (1.5 mL) insulin pen See Rx Instructions SUBCUT .COMPLEX Rx Instructions: 16 units subcutaneously; Gemtesa 75 mg tablet 75 mg PO DAILY cyclobenzaprine 10 mg Tablet 10 mg PO Q8H PRN (Reason: Muscle Spasm) 14 Days Qty: 28 0RF hydrocodone-acetaminophen 5-325 mg Tablet 1 tablet PO Q4H PRN (Reason: Pain Rated 4-6) 14 Days Qty: 14 0RF lidocaine [Lidoderm] 5 % Adhesive Patch,Medicated 1 patch transdermal DAILY 30 Days Qty: 30 0RF gabapentin 100 mg Capsule 100 mg PO TID 14 Days Qty: 42 0RF Discontinued amlodipine-benazepril 5-20 mg capsule 1 cap PO DAILY Other Ambulatory Orders: Basic Metabolic Panel (Routine) Timeframe: [id number] Location: Determined by Patient Ordered By: Rober Wesley CT diagnostic chest w con (Routine) Timeframe: 3 Months Location: Determined by Patient Ordered By: Rober Wesley Date of admission: 08/13/24 14:11 Primary Care Provider: Noe,Kris Guzman Admitting Provider: Ida Carlos Attending physician on admission: Ida Carlos Condition: Stable Hospitalist MIPS Heart Failure (Exclusion) Patient has history of Heart Transplant or Left Ventricular Assistive Device?: No IF YES, STOP HERE Heart Failure (Qualifier) Patient has current or prior documentation of LVEF less than or equal to 40%, or mod/servere depressed LVSF?: No IF NO, STOP HERE
--- NOTE | 2024-08-20 15:20 | PC.NURSE ---
Patient discharging home. All discharge instructions and education reviewed with patient and . Both parties state understanding. All belongings gathered together and sent home with patient. Patient had no IV at time of discharge. Patient accompanied to front door via wheelchair by this nurse. Left via private vehicle. Patient denies any questions at discharge.
== END 2024-08-20 15:20 | disposition home or self-care (01) | DRG 948 ==
PROVIDERS: Internal Medicine; Admitting Provider Internal Medicine; PCP Internal Medicine; Visit Provider Internal Medicine
DX: R53.81 Other malaise (principal); E87.1 Hypo-osmolality and hyponatremia; S13.4XXD Sprain of ligaments of cervical spine, subsequent encounter; S22.31XD Fracture of one rib, right side, subsequent encounter for fracture with routine healing; W19.XXXD Unspecified fall, subsequent encounter; E11.9 Type 2 diabetes mellitus without complications; E78.5 Hyperlipidemia, unspecified; F41.8 Other specified anxiety disorders; F17.290 Nicotine dependence, other tobacco product, uncomplicated; I10 Essential (primary) hypertension; M47.814 Spondylosis without myelopathy or radiculopathy, thoracic region; M47.812 Spondylosis without myelopathy or radiculopathy, cervical region; N32.81 Overactive bladder; R91.1 Solitary pulmonary nodule; Z79.4 Long term (current) use of insulin; Z79.85 Long-term (current) use of injectable non-insulin antidiabetic drugs; Z79.84 Long term (current) use of oral hypoglycemic drugs
CPT/HCPCS: 36415; 80048; 82570; 82948; 84300; 97110; 97161; 97165; 97530; 97535; A9270; J1815; J8540

== ENCOUNTER 2024-11-21 14:22 | Outpatient (RCR) | payer MEDICARE, SELFPAY | END 2025-01-03 15:39 | disposition home or self-care (01) | LOC: ANHDMC 14:22 | PROVIDERS: PCP Internal Medicine; Visit Provider Internal Medicine | DX: E11.65 Type 2 diabetes mellitus with hyperglycemia (principal); Z71.89 Other specified counseling | CPT/HCPCS: G0109 ==